=== PATIENT | female | born 1980 | race Asian ===

== ENCOUNTER 2021-09-27 15:18 | Inpatient (IN) | payer MEDICARE, SELFPAY ==
[2021-09-27] VITALS (7 sets, daily range): BP systolic 78–108; BP diastolic 40–77; PULSE 94–120; RESP 14–19; TEMP 36.6; O2SAT 98–100; BMI 21.5
--- NOTE | ~2021-09-27 | CT_ITS ---
EXAMINATION: CT CHEST WITHOUT CONTRAST CLINICAL INFORMATION: Pneumomediastinum. Evaluate for esophageal rupture or tear. COMPARISON: CT chest without contrast 09/27/2021 TECHNIQUE: Multidetector volumetric CT imaging of the chest was done. Axial MIP volume rendering provided. Sagittal and coronal reformatted images were obtained. This CT examination was performed using dose optimization techniques as appropriate, variously including the following: *Automated exposure control *Adjustment of mA and/or kV according to patient size (this includes techniques or standardized protocols for targeted exams where dose is matched to indication/reason for exam; i.e. extremities or head) *Use of iterative reconstruction technique DLP: 215 mGy-cm FINDINGS: LAB ANIMAL TECHNOLOGIST: Well-inflated lungs. LUNGS: The lungs are well-expanded without any acute pneumonic process. No consolidation, mass or nodule visualized. MEDIASTINUM: Again visualized is moderate extensive pneumomediastinum similar to earlier exam 09/27/2021. There is a speckle of gas and oral contrast seen extraluminal to the midesophagus on axial image 26/2 and 27/2. There is linear gas at the same area on the previous CT from 09/27/2021. An esophageal tear at this site is highly suspected. Heart size and the great vessels are normal caliber. The thyroid lobes are symmetric and normal. No abnormal size mediastinal lymphadenopathy. No pericardial effusion. However there is focal air collection seen along the right and left anterior pericardial sac part of pneumomediastinum. PLEURA: There is no pleural effusion. No pleural mass or thickening. There is no evidence of pneumothorax. AXILLA: There is moderate gas seen within the right axilla, bottom of the neck, superior mediastinum and the left midneck region similar to previous study. UPPER ABDOMEN: Visualized liver and spleen is unremarkable. There is diluted Gastrografin in the stomach and distal esophagus OSSEOUS STRUCTURES: There is no lytic or sclerotic process seen CT/CT chest wo con IMPRESSION: Extensive pneumomediastinum and subcutaneous emphysema in the anterior neck and the right axilla. There is a trickle of gas and oral contrast to the midesophagus just below the delfino suspicious for likely site for esophageal tear or rupture. Results were conveyed by phone to Dr. Arreaga at 5:02 PM
--- NOTE | ~2021-09-27 | CT_ITS ---
EXAMINATION: CT HEAD WITHOUT CONTRAST CLINICAL INFORMATION: New onset seizures. COMPARISON: None TECHNIQUE: Contiguous axial imaging was performed from the skull base to vertex without intravenous administration of contrast. This CT examination was performed using dose optimization techniques as appropriate, variously including the following: *Automated exposure control *Adjustment of mA and/or kV according to patient size (this includes techniques or standardized protocols for targeted exams where dose is matched to indication/reason for exam; i.e. extremities or head) *Use of iterative reconstruction technique DLP: 586 mGy-cm FINDINGS: There is no evidence of acute intracranial hemorrhage or territorial infarction. No abnormal mass effect or midline shift is seen. Wells to white matter differentiation is well preserved. No extra-axial fluid collections are identified. The ventricles are normal in size. Cavum septum pellucidum at vergae. There is mild chronic microangiopathy. No acute osseous or soft tissue abnormalities. Bilateral degenerative changes in both temporomandibular joints. The mastoid air cells and visualized portions of the paranasal sinuses are well aerated. CT/CT head/brain wo con IMPRESSION: No acute intracranial abnormalities.
--- NOTE | ~2021-09-27 | XR_ITS ---
EXAMINATION: XR CHEST CLINICAL INFORMATION: Follow-up pneumomediastinum. Esophageal perforation. COMPARISON: Previous chest CT scan from earlier this month TECHNIQUE: Frontal view of the chest was obtained. FINDINGS: The cardiac gland does not appear enlarged. There is pneumomediastinum. From previous CT scan. The lungs are clear. There is right apical pleural thickening. There is no pleural effusion or pneumothorax. There is a small amount of right chest wall emphysema right shoulder. Bony structures are unremarkable. XR/XR chest 1V IMPRESSION: Pneumomediastinum and right chest wall subcutaneous emphysema decreased from previous CT scans.
--- NOTE | ~2021-09-27 | CT_ITS ---
EXAMINATION: CT CHEST WITHOUT CONTRAST CLINICAL INFORMATION: Pneumomediastinum COMPARISON: CT abdomen pelvis earlier the same day TECHNIQUE: Multidetector volumetric CT imaging of the chest was done. Axial MIP volume rendering provided. Sagittal and coronal reformatted images were obtained. This CT examination was performed using dose optimization techniques as appropriate, variously including the following: *Automated exposure control *Adjustment of mA and/or kV according to patient size (this includes techniques or standardized protocols for targeted exams where dose is matched to indication/reason for exam; i.e. extremities or head) *Use of iterative reconstruction technique DLP: 251 mGy-cm FINDINGS: DIRECTOR HEMATOLOGY: Symmetrically expanded lungs. Subcutaneous emphysema in the right shoulder is readily evident. LUNGS: The lungs are clear with no evidence of inflammation or nodules. MEDIASTINUM: There is extensive pneumomediastinum. There are foci of gas in the anterior as well as posterior mediastinum, as well as adjacent the cardiac apex. Numerous foci of gas are seen extending from the superior mediastinum into the soft tissues of the neck and axilla, right greater than left. All PLEURA: No pleural effusion or pneumothorax. AXILLA: Subcutaneous emphysema is seen in the axilla bilaterally. UPPER ABDOMEN: Right-sided hydronephrosis again seen. OSSEOUS STRUCTURES: Unremarkable. CT/CT chest wo con IMPRESSION: Extensive pneumomediastinum extending into the neck and right greater than left axilla as subcutaneous emphysema. The etiology is uncertain. The prior study had a history of decreased appetite. Was the patient retching to suggest Boerhaave's syndrome? Fleischner guidelines were followed.
--- NOTE | ~2021-09-27 | IR_ITS ---
PROCEDURE: IR INSERTION OF PICC IR ULTRASOUND-GUIDED VENOUS ACCESS CLINICAL INFORMATION: Esophageal perforation. TPN requirement. COMPARISON: None TECHNIQUE: Informed consent including procedure, risks and benefits were obtained by the interventional radiology nurses prior to the procedure. All elements of maximal sterile barrier technique followed including use of cap, mask, sterile gown, sterile gloves, a sterile full body drape and hand hygiene. Also followed skin preparation with 2% chlorhexidine for cutaneous antisepsis, and sterile ultrasound preparation with sterile gel and probe cover when applicable. The right arm was prepped and draped in the usual sterile fashion. The skin and soft tissues were anesthetized with 1% lidocaine plain. Using ultrasound guidance, right brachial vein access was obtained. Over an .018 wire and through a peel-away sheath, a 5-Russian double-lumen PICC line was positioned. Catheter length is 21 cm. Catheter tip projects over the distal right subclavian vein/proximal SVC. Real-time ultrasound guidance was used to document vein patency and for needle entry. A formal ultrasound picture was recorded. Fluoroscopy time 0.1 minutes. DAP 8 cGy-cm2. One saved fluoroscopic image and one saved ultrasound image. FINDINGS: There is a right upper extremity PICC line with catheter tip projecting over the distal right subclavian vein/proximal SVC. IR/IR us guide venous access IMPRESSION: Right upper extremity PICC line placement.
--- NOTE | ~2021-09-27 | FL_ITS ---
EXAMINATION: FL BARIUM SWALLOW CLINICAL INFORMATION: Followup for esophageal tear. COMPARISON: None TECHNIQUE: Barium swallow examination is performed using fluoroscopic evaluation in addition to multiple fluoroscopic spot views. The patient is imaged both upright and prone and using both thick and thin sulfate along with effervescent granules. Fluoroscopy time: 0.5 minutes DAP: 0.402 Gycm2 Images: 2 FINDINGS: After coaxing patient for swallowing of 50/50 Gastrografin for almost 20 minutes, the patient refused to drink in spite of the electronic train control technician and patient's sister trying for several minutes. The exam was terminated. FL/FL barium swallow IMPRESSION: Unsuccessful barium swallow exam. Patient refused to drink. Post Gastrografin swallow CT imaging was not performed. Results were conveyed to Dr. Pathak after the exam.
--- NOTE | ~2021-09-27 | IR_ITS ---
PROCEDURE: IR INSERTION OF PICC IR ULTRASOUND-GUIDED VENOUS ACCESS CLINICAL INFORMATION: Esophageal perforation. TPN requirement. COMPARISON: None TECHNIQUE: Informed consent including procedure, risks and benefits were obtained by the interventional radiology nurses prior to the procedure. All elements of maximal sterile barrier technique followed including use of cap, mask, sterile gown, sterile gloves, a sterile full body drape and hand hygiene. Also followed skin preparation with 2% chlorhexidine for cutaneous antisepsis, and sterile ultrasound preparation with sterile gel and probe cover when applicable. The right arm was prepped and draped in the usual sterile fashion. The skin and soft tissues were anesthetized with 1% lidocaine plain. Using ultrasound guidance, right brachial vein access was obtained. Over an .018 wire and through a peel-away sheath, a 5-[place] double-lumen PICC line was positioned. Catheter length is 21 cm. Catheter tip projects over the distal right subclavian vein/proximal SVC. Real-time ultrasound guidance was used to document vein patency and for needle entry. A formal ultrasound picture was recorded. Fluoroscopy time 0.1 minutes. DAP 8 cGy-cm2. One saved fluoroscopic image and one saved ultrasound image. FINDINGS: There is a right upper extremity PICC line with catheter tip projecting over the distal right subclavian vein/proximal SVC. IR/IR cvc insert peripheral IMPRESSION: Right upper extremity PICC line placement.
--- NOTE | ~2021-09-27 | XR_ITS ---
EXAMINATION: XR CHEST CLINICAL INFORMATION: Esophageal perforation COMPARISON: 09/29/2021 TECHNIQUE: Frontal view of the chest was obtained. XR/XR chest 1V FINDINGS/IMPRESSION: No appreciable pneumomediastinum remains. No pneumothorax. Normal heart size and pulmonary vascularity. Lungs are clear. Right upper extremity PICC terminates in the expected location of the proximal right subclavian vein/distal axillary vein.
--- NOTE | ~2021-09-27 | CT_ITS ---
EXAMINATION: CT ABDOMEN AND PELVIS WITHOUT CONTRAST CLINICAL INFORMATION: Decreased appetite. COMPARISON: None TECHNIQUE: Multidetector volumetric imaging was performed from the superior aspect of the liver through the pubic symphysis. Sagittal and coronal reformatted images were obtained on the technologist's workstation. This CT examination was performed using dose optimization techniques as appropriate, variously including the following: *Automated exposure control. *Adjustment of mA and/or kV according to patient size (this includes techniques or standardized protocols for targeted exams where dose is matched to indication/reason for exam; i.e. extremities or head). *Use of iterative reconstruction technique. DLP: 502 mGy-cm FINDINGS: LUNG BASES: Focal ground-glass opacities at the dependent portion of the left lower lobe likely correspond to atelectasis. There is pneumomediastinum at the diaphragmatic hiatus and anteriorly in the pericardial region. A few foci of gas are also present within the right breast tissue, possibly due to the same mechanism which produced the pneumomediastinum. LIVER, GALLBLADDER, AND BILIARY TREE: There is focal fatty infiltration along the falciform ligament. Liver appears normal in size, contour, and attenuation without focal lesions or ductal dilatation, the sensitivity and specificity is somewhat limited by the absence of intravenous contrast material. The gallbladder is unremarkable with no evidence of radiopaque gallstones, gallbladder wall thickening, or obvious pericholecystic inflammatory changes. PANCREAS: Unremarkable. SPLEEN: Unremarkable. ADRENAL GLANDS: Unremarkable. KIDNEYS AND URETERS: The kidneys are normal in size, shape, and attenuation. No nephrolithiasis or ureterolithiasis. There is mild hydroureteronephrosis, right side greater than left, likely due to back pressure from the markedly distended bladder. BLADDER: Markedly distended. No appreciable wall thickening. GASTROINTESTINAL TRACT: Stomach, small bowel, and colon are normal in caliber. No appreciable bowel wall thickening. No intraperitoneal free fluid or free air. Appendix is not well seen, although there are no findings of acute appendicitis are identified in the right lower quadrant. ABDOMINAL WALL: No significant hernia is appreciated. LYMPH NODES: Normal. VASCULAR: Unremarkable. PELVIC VISCERA: The uterus is unremarkable. There is a simple-appearing 2.8 cm right ovarian cyst which is almost certainly benign. A smaller 2.5 cm follicular cyst is present at the left ovary. No follow up imaging recommended. OSSEOUS STRUCTURES: Left convex lumbar scoliosis. No fracture or malalignment. Mild osteoarthritis in the hips and SI joints. CT/CT abdomen pelvis wo con IMPRESSION: 1. Pneumomediastinum, partially seen at the superior margin of the study. No intraperitoneal source identified. 2. Markedly distended bladder with mild associated bilateral hydroureteronephrosis. This critical result was discussed by telephone with Dr. Reno on 09/27/2021 at 10:27 PM.
--- NOTE | 2021-09-27 15:26 | ECG_ITS ---
Test Reason : SEIZURE Blood Pressure : / mmHG Vent. Rate : 112 BPM Atrial Rate : 112 BPM P-R Int : 154 ms QRS Dur : 076 ms QT Int : 358 ms P-R-T Axes : 048 050 -04 degrees QTc Int : 488 ms Sinus tachycardia Cannot rule out Inferior infarct , age undetermined Abnormal ECG No previous ECGs available Referred By: Rambo Rios Electronically Signed By:JUAN BLAKE MD
--- NOTE | 2021-09-27 15:32 | ED_ITS ---
HPI - Seizure General Chief Complaint: Seizure Stated Complaint: seizure (?) Time Seen by Provider: 09/27/21 15:26 Source: patient and EMS Mode of arrival: ambulatory Limitations: no limitations History of Present Illness HPI Narrative: This is a 41-year-old female past medical history significant for mild intellectual disability, Down syndrome, mood disorder, depressive disorder, psychotic disorder not otherwise specified presenting to the emergency department via ambulance from a senior care where patient had a 5-7 second long tonic clonic seizure just prior to her arrival. According to EMS patient does not have history of seizures. Patient tells me that she feels fine, she has no complaints at this time. She tells me about a week ago she was experiencing an upset stomach, sore throat. Patient is not a great historian. Patient did not fall, did not hit her head. Has no complaints MD complaint: seizure Onset (ago): minute(s) (30) Description of Episode: tonic-clonic movement Duration of episode: 5 -: second(s) Witnessed: Yes - by Bystander Trauma: No Seizure History: No Place: Home ([facility] ) Possible Precipitating Event: none Associated symptoms: denies other symptoms Treatments prior to arrival: none Related Data Allergies Allergy/AdvReac Type Severity Reaction Status Date / Time Unable to Assess Allergy Unverified 09/27/21 15:26 Review of Systems Review of Systems: Constitutional : No Weight loss, No Fever, No Chills, No Fatigue, No Malaise ENT/Mouth : No sore throat, No Rhinorrhea Eyes: No Eye Pain, No Swelling, No Redness Cardiovascular : No Chest Pain, No SOB, No Dyspnea on Exertion, No Orthopnea, No Edema, No Palpitations Respiratory : No Cough, No Sputum, No Wheezing Gastrointestinal : No Nausea, No Vomiting, No Diarrhea, No Constipation, No abdominal Pain, No Hematochezia, No Melena Genitourinary : No Dysuria, No Urinary Frequency, No Hematuria, Musculoskeletal : No joint pain, No Myalgias, No Joint Swelling Skin : No Skin Lesions, No rash Neuro : No Weakness, No Numbness, No Dizziness, No Headache Psych : No Anxiety/Panic, No Depression All other systems reviewed and are negative Yes all other systems are reviewed and are negative PMFSH Past Medical History Attestation statement: The following information was validated with the patient. Source: old records reviewed and nursing notes reviewed Medical History (Updated 09/27/21 @ 19:32 by BAUDILIO Payne) Down's syndrome Mood disorder Psychotic disorder Social History Social History Advance Directives: No Advance Directives Information Provided: No Patient : No Physical Exam Vital Signs: Vital Signs: Last Vital Signs Temp 98 F 09/27/21 15:25 Pulse 94 09/27/21 19:39 Resp 14 09/27/21 19:39 BP 97/77 09/27/21 19:39 Pulse Ox 98 09/27/21 19:39 BMI result Body Mass Index 21.5 VSS Appearance: Alert.? Oriented X3.? No acute distress.? Head: Normocephalic, atraumatic, no step-offs or deformities Eyes: Pupils equal, round and reactive to light.? ENT: Pharynx normal.?+ dry mucus membranes. No lacerations within mouth Neck: Normal inspection.? Neck supple.? CVS: Normal heart rate and rhythm.? Pulses normal.? Respiratory: No respiratory distress.? Breath sounds normal.? Abdomen: Soft and nontender.? Skin: Skin warm and dry.? Normal skin color.? Normal skin turgor.? Extremities: No lower extremity edema.? No calf ttp. 5/5 strength to bilateral upper and lower extremities Back: No midline tenderness, no C-spine tenderness, full range of motion, no CVA tenderness bilaterally Neuro: Oriented X 3.? No motor deficit.? No sensory deficit. Course Reevaluation(s) Reevaluation #1: Patient's potassium is noted to be low. She will be given 60 meq of potassium by mouth. CBC within normal limits. Patient is COVID negative. CT of the head with no abnormalities. Will continue to monitor. Patient has not had a seizure while here in the emergency department. Time: 17:26 Reevaluation #2: Patient very drowsy/lethargic. I will change potassium to IV you rather than p.o.. Patient noted to be hypotensive, she is on liter 2, this liter on a pressure bag. Time: 17:58 Reevaluation #3: On 3 L pressure slowly going up. Will admit to the hospitalist team. Time: 19:33 Additional Reevaluation(s): 2012 Pressure in the low 100s systolic now,while patient is supine. MDM - Seizure MDM Narrative Medical decision making narrative: 1535 41 yo F pmhx intellectual disability, Down syndrome, mood disorder, MDD, psychotic disorder presents from a senior care where patient had a 5-7 second long whitnessed tonic clonic seizure just prior to her arrival. No trauma. No lOC no fall. No hx of seziures, unsure what precipitated this event. Upon physical examination patient is in good spirits, has no complaints. Vital signs are stable. Lungs clear. Regular rate and rhythm. Abdomen soft nontender nondistended. Neurological examination is nonfocal. Head is normocephalic, atraumatic no step-offs or deformities. No C-spine tenderness no midline tenderness. No evidence signs of trauma. Patient's mucous membranes are noted to be dry, lips are cracked. No abrasions within the mouth. At this time is to obtain basic labs, cardiac monitoring, seizure precautions, EKG, fluids, Ativan. Medical Records Attestation: I reviewed the patient's medical records. Lab Data Attestation: I reviewed the patient's lab results. Result diagrams: 09/27/21 16:37 09/27/21 16:16 Labs: Lab Results 09/27/21 09/27/21 09/27/21 Range/Units 16:16 16:16 16:37 WBC 5.2 (4.8-10.8) X10*3/uL RBC 4.59 (4.20-5.50) X10*6/uL Hgb 15.2 (12.0-16.0) g/dl Hct 43.1 (37.0-47.0) % MCV 93.9 (80.0-98.0) fL MCH 33.1 H (27.0-33.0) pg MCHC 35.3 H (31.0-35.0) g/dl RDW 13.9 (11.0-16.0) % Plt Count 288 (160-400) X10*3/uL MPV 9.5 (9.4-12.3) fL Immature Gran % (Auto) 0.6 H (0.0-0.4) % Neut % (Auto) 76.8 H (45-73) % Lymph % (Auto) 12.3 L (20-40) % [place] % (Auto) 7.3 (2-11) % Eos % (Auto) 1.5 (0-4) % Baso % (Auto) 1.5 (0-2) % Lymph # (Auto) 0.6 L (1.2-4.9) X10*3/uL [place] # (Auto) 0.4 (0.1-1.2) X10*3/uL Eos # (Auto) 0.1 (0.0-0.4) X10*3/uL Baso # (Auto) 0.1 (0.0-0.2) X10*3/uL Abs Immat Gran (auto) 0.03 (0.00-0.03) X10*3/uL Absolute Neuts (auto) 4.0 (2.0-8.3) x10*3/uL Absolute Nucleated RBC 0.000 (0.0-0.012) X10*3/uL Nucleated RBC % (auto) 0.0 (0.0-0.2) /100WBC Sodium 141 (135-145) mmol/L Potassium 2.9 L (3.3-5.1) mmol/L Chloride 102 (96-108) mmol/L Carbon Dioxide 26 (22-29) mmol/L Anion Gap 16 (12-20) BUN 13 (9-16) mg/dL Creatinine 1.01 (0.5-1.4) mg/dL Estim Creat Clear Calc 51.5 Estimated GFR 60 Random Glucose 156 H (60-115) mg/dL Calcium 9.1 (8.4-10.2) mg/dL Magnesium 2.1 (1.6-2.6) mg/dL Total Bilirubin 0.7 (0.0-1.0) mg/dL AST 17 (5-31) U/L ALT 9 (0-31) U/L Alkaline Phosphatase 72 (39-117) U/L Total Protein 7.4 (6.5-8.0) g/dL Albumin 3.8 (3.5-5.0) g/dL COVID-19 (PRIYA) Negative (Negative) COVID-19 Clin Com See Note Imaging Data CT scan - head: Attestation: I personally reviewed and interpreted this imaging study as follows: Radiologist's impression: FINDINGS: There is no evidence of acute intracranial hemorrhage or territorial infarction. No abnormal mass effect or midline shift is seen. Wells to white matter differentiation is well preserved. No extra-axial fluid collections are identified. The ventricles are normal in size. Cavum septum pellucidum at vergae. There is mild chronic microangiopathy. No acute osseous or soft tissue abnormalities. Bilateral degenerative changes in both temporomandibular joints. The mastoid air cells and visualized portions of the paranasal sinuses are well aerated. ? CT/CT head/brain wo con IMPRESSION: No acute intracranial abnormalities. ECG Data Attestation: I personally reviewed and interpreted this ECG as follows: ECG interpretation date: 09/27/21 ECG interpretation time: 16:06 Prior ECG tracings: available for review Interpretation: Ventricular rate of 112, ME normal, QRS normal, QT/QTC normal. EKG shows normal sinus tachycardia. No ST elevations or inversions, no acute ischemia. No previous EKGs to compare with. Critical Care Time Critical Care Time Critical Care Time: Yes Total Critical Care Time: 35 Attestation: I attest to this time spent taking care of the patient doing a history and physical exam, reviewing labs, imaging, starting K, and 3L of fluids. Discharge Plan Discharge Clinical Impression: Seizure, Hypokalemia, Hypotension Patient Disposition: Admitted As Inpatient
[2021-09-27] MEDS: LORazepam 2 MG/ML VIAL 1 MG IVPUSH (15:38)
--- NOTE | 2021-09-27 15:52 | PC.NURSE ---
jose from [facility]
[2021-09-27 16:41] LABS: Alanine Aminotransferase 9 U/L (0-31); Albumin Level 3.8 g/dL (3.5-5.0); Alkaline Phosphatase 72 U/L (39-117); Anion Gap 16 (12-20); Aspartate Amino Transferase 17 U/L (5-31); Bilirubin Total 0.7 mg/dL (0.0-1.0); Blood Urea Nitrogen 13 mg/dL (9-16); COVID-19 Test Negative (Negative); Calcium 9.1 mg/dL (8.4-10.2); Carbon Dioxide 26 mmol/L (22-29); Chloride 102 mmol/L (96-108); Creatinine Clr Calc Pharmacy 51.5; Estimated Glomerular Filt Rate 60; Glucose Random 156 mg/dL (60-115); IDNOW Serial# 9DD0AD1C; Magnesium 2.1 mg/dL (1.6-2.6); Sodium 141 mmol/L (135-145); Total Protein 7.4 g/dL (6.5-8.0)
[2021-09-27 16:41] LABS: Basophils Absolute Auto 0.1 X10*3/uL (0.0-0.2); Basophils Percent Auto 1.5 % (0-2); Eosinophils Absolute Auto 0.1 X10*3/uL (0.0-0.4); Eosinophils Percent Auto 1.5 % (0-4); Hematocrit 43.1 % (37.0-47.0); Hemoglobin 15.2 g/dl (12.0-16.0); Imm Gran Abs Auto 0.03 X10*3/uL (0.00-0.03); Imm Gran Pct Auto 0.6 % (0.0-0.4); Lymphocytes Absolute Auto 0.6 X10*3/uL (1.2-4.9); Lymphocytes Percent Auto 12.3 % (20-40); Mean Corpuscular HGB Conc 35.3 g/dl (31.0-35.0); Mean Corpuscular Hemoglobin 33.1 pg (27.0-33.0); Mean Corpuscular Volume 93.9 fL (80.0-98.0); Mean Platelet Volume 9.5 fL (9.4-12.3); Monocytes Absolute Auto 0.4 X10*3/uL (0.1-1.2); Monocytes Percent Auto 7.3 % (2-11); Neutrophils Percent Auto 76.8 % (45-73); Platelet Count 288 X10*3/uL (160-400); Red Blood Count 4.59 X10*6/uL (4.20-5.50); Red Cell Distribution Width 13.9 % (11.0-16.0); White Blood Count 5.2 X10*3/uL (4.8-10.8)
[2021-09-27] MEDS: 0.9 % Sodium Chloride 1,000 ML 999 ML IV ×3 (16:41→19:35)
[2021-09-27 16:48] LABS: Potassium 2.9 mmol/L (3.3-5.1)
[2021-09-27 17:08] LABS: MANUAL DIFF FLAG NO
[2021-09-27] MEDS: Potassium Chloride/H20 10 MEQ/100 ML PIGGYBACK 100 MEQ IV ×4 (18:25→21:58)
--- NOTE | 2021-09-27 21:14 | P.HPHOSP_ITS ---
History of Present Illness Date of Service: 09/27/21 Chief Complaint: tonic clonic movements history obtained from ED and workgroup leader, patient poor historian, unable to contact family. 41F with pmh of mild intellectual disability, lives at a snf. presented with tonic clonic movements for several seconds per EMS report. they reported no history of seizures, and patient is not on medications at the snf. she had 2 ED visits to [facility] [place] in june 2021 and august 2021 for syncopal episodes. no tonic clonic movements were noted at that time. workgroup leader was unable to provide history of postictal phase or incontinence. he did note that staff had reported decreased po intake over past week. this has also been noted on the [facility] [place] ED notes. patient herself reports being thirsty and is requesting coca cola . in ED noted to be hypokalemic to 2.9, and transiently hypotensive that responded to IV fluids. Review of Systems Review of Systems: Constitutional: Denies fever, denies Chills Eyes: denies blurry vision ENT: denies sore throat CVS: denies chest pain Respiratory: Denies dyspnea GI: no abdominal pain : denies dysuria MSK: denies neck pain Skin: denies rash Neuro: denies specific motor weakness Psych: denies suicidal ideation Endocrine: denies heat/cold intolerance Hematologic: denies easy bleeding Allergy: denies hives PMFSH Medical History Down's syndrome Mood disorder Psychotic disorder Pertinent family history: patient unaware Social History Advance Directives: No Advance Directives Information Provided: No Patient : No Meds Allergies Allergy/AdvReac Type Severity Reaction Status Date / Time Unable to Assess Allergy Unverified 09/27/21 15:26 Active Medications: Current Medications Enoxaparin Sodium (Enoxaparin Sodium 40 Mg/0.4 Ml Syringe) 40 mg SUBCUT Q24H SC H Potassium Chloride () 10 meq in 100 mls @ 100 mls/hr IV Q1H DAVID Stop: 09/27/21 21:59 Last Admin: 09/27/21 20:44 Dose: 100 mls/hr Documented by: Lactated Ringer's (Lr) 1,000 mls @ 80 mls/hr IVCONT .[id number] DAVID Physical Exam Vital Signs and Narrative: Vital Signs: Last Vital Signs Temp 98 F 09/27/21 15:25 Pulse 94 09/27/21 19:39 Resp 14 09/27/21 19:39 BP 97/77 09/27/21 19:39 Pulse Ox 98 09/27/21 19:39 BMI result Body Mass Index 21.5 General: no acute distress, features of trisomy 21, dry appearing HEENT: poor dentition Neck: normal to visual inspection CVS: S1, S2, RRR Resp: CTA bilateral Chest: non tender GI: soft, non tender, non distended : no CVA tenderness Skin: no rashes Extremities: no edema Neuro: Oriented X3, grossly intact Psych: cooperative Results Labs CBC and Chem 7: 09/27/21 16:37 09/27/21 16:16 Labs: Laboratory Results - last 24 hr 09/27/21 09/27/21 09/27/21 16:16 16:16 16:37 MCV 93.9 MCH 33.1 H MCHC 35.3 H RDW 13.9 Plt Count 288 MPV 9.5 Immature Gran % (Auto) 0.6 H Neut % (Auto) 76.8 H Lymph % (Auto) 12.3 L [place] % (Auto) 7.3 Eos % (Auto) 1.5 Baso % (Auto) 1.5 Lymph # (Auto) 0.6 L [place] # (Auto) 0.4 Eos # (Auto) 0.1 Baso # (Auto) 0.1 Abs Immat Gran (auto) 0.03 Absolute Neuts (auto) 4.0 Absolute Nucleated RBC 0.000 Nucleated RBC % (auto) 0.0 Anion Gap 16 Estim Creat Clear Calc 51.5 Estimated GFR 60 Random Glucose 156 H Calcium 9.1 Magnesium 2.1 Total Bilirubin 0.7 AST 17 ALT 9 Alkaline Phosphatase 72 Total Protein 7.4 Albumin 3.8 COVID-19 (PRIYA) Negative COVID-19 Clin Com See Note Imaging Radiologist's Impressions: Impressions Head CT 09/27/21 16:52 IMPRESSION: No acute intracranial abnormalities. Assessment and Plan (1) Hypokalemia: Status: Acute (2) Hypotension: Status: Acute 41F presented with LOC and tonic clonic movements, found to be hypotensive and hypokalemic LOC with tonic clonic movements differential includes seizure vs syncope from hypotension from hypovolemia will hold off on AED for now, neuro eval arrythmia less likely, but will monitor on tele IVF, orthostatics history of poor intake concerning, will check CT abdomen, abdominal exam is benign no evidence of sepsis hypokalemia replace and monitor dvt prophylaxis - lovenox full code - from snf chart Quality Stroke Does the patient have a stroke diagnosis?: No VTE Prior VTE?: No VTE Risk Level:: Medical - moderate - high VTE Device Contraindication: Treatment Not Indicated VTE Drug Contraindication: N/A - Med Ordered
[2021-09-27] MEDS: Enoxaparin Sodium 40 MG/0.4 ML SYRINGE SUBCUT (21:58)
--- NOTE | 2021-09-27 22:19 | PC.NURSE ---
patients sister Ruth can be reached at [phone]
[2021-09-27] MEDS: Lactated Ringers 1,000 ML 80 ML IVCONT (23:42)
[2021-09-28] VITALS (16 sets, daily range): BP systolic 84–106; BP diastolic 37–63; PULSE 69–96; RESP 9–16; TEMP 36.4–36.8; O2SAT 98–100
--- NOTE | 2021-09-28 01:30 | PC.NURSE ---
Hospitalist Dr. Han aware of PT refusal to castellano.
[2021-09-28] MEDS: Ampicillin Sodium/Sulbactam Na 1.5 GM in 0.9 % Sodium Chloride 100 ML IV ×3 (01:55→15:19)
--- NOTE | 2021-09-28 05:22 | PC.NURSE ---
patient getting up and using the bathroom, denies difficulty, pain, or other urinary symptoms. patient is alert and able to answer questions. skin is p,d,w. denies pain at this time.
[2021-09-28] MEDS: 0.9 % Sodium Chloride 1,500 ML 1500 ML IV (09:05)
--- NOTE | 2021-09-28 09:08 | PHA.MEDREC ---
Pharmacy Consult ? Medication Reconciliation Pharmacy has completed the medication reconciliation. Patient came with a binder from [facility] which had a list of current medications. Marleny Chavez, SalomónD
--- NOTE | 2021-09-28 09:38 | P.CONGS_ITS ---
History of Present Illness Consult details Consult date: 09/28/21 Reason for consult: other (Pneumomediastinum) Requesting physician: Jean Reno Narrative: History obtained from hospitalist admission note is patient is a poor historian. Patient is a 41-year-old female with a past medical history of mild intellectual disability/ down's syndrome, lives at a care home. Presented to the emergency department with tonic clonic movements for several seconds per EMS report. According to note today reported no history of seizures, and patient is not on any medications at the care home. Reportedly the staff at the care home had reported decreased p.o. intake over past week. Upon arrival to ED she was noted to be hypokalemic to 2.9 and hypotensive but responded to IV fluids. There is no leukocytosis with WBC 5.9. A CT scan of the chest and abdomen were performed which showed no pneumothorax however extensive pneumomediastinum extending into the neck and right greater than left axilla and subcutaneous emphysema for which thoracic surgery was consulted for. a GI consult was also placed which is pending. Patient was made NPO last night and started on empiric Unasyn. During my interview with patient she stated that she is not sure what brought her to the emergency department. She denies any recent vomiting or retching and cannot recall what foods she has had in the past recent days. She also denies any difficulty or painful swallowing, neck pain, abdominal pain, chest pain or shortness of breath. He is currently receiving IV fluids for BP of 80/35 and does not appear to be in any respiratory distress or any discomfort. Review of Systems Review of Systems: Yes all other systems are reviewed and are negative PMFSH Past Medical History Medical History Down's syndrome Mood disorder Psychotic disorder Family History Pertinent family history: unable to obtain Social History Social History Advance Directives: No Advance Directives Information Provided: No Patient : No Meds Allergies Allergy/AdvReac Type Severity Reaction Status Date / Time Seasonal Allergies Allergy Unknown Verified 09/28/21 08:45 Active Medications: Current Medications Enoxaparin Sodium (Enoxaparin Sodium 40 Mg/0.4 Ml Syringe) 40 mg SUBCUT Q24H DAVID Last Admin: 09/27/21 21:58 Dose: 40 mg Documented by: Lactated Ringer's (Lr) 1,000 mls @ 80 mls/hr IVCONT .[id number] [facility] Last Infusion: 09/28/21 02:21 Dose: 80 mls/hr Documented by: Ampicillin Sodium/Sulbactam (Sodium 1.5 gm/ Sodium Chloride) 100 mls @ 200 mls/hr IV Q8H [facility] Last Infusion: 09/28/21 02:21 Dose: Infused Documented by: Home Medications Medication Instructions Recorded Confirmed Last Taken Type acetaminophen 325 mg tablet 650 mg PO Q4H PRN 09/28/21 09/28/21 Unknown History chlorhexidine gluconate 0.12 % 15 ml BUCCAL BID 09/28/21 09/28/21 Unknown History mouthwash (Peridex) Physical Exam Vital Signs: Vital Signs: Last Vital Signs Temp 98 F 09/27/21 15:25 Pulse 69 09/28/21 08:47 Resp 16 09/28/21 08:47 BP 88/37 L 09/28/21 08:47 Pulse Ox 100 09/28/21 05:55 BMI result Body Mass Index 21.5 Const: General: comfortable, no acute distress and lethargic Orientation/consciousness: lethargic HENMT: Head: Yes atraumatic Eyes: Conjunctivae: conjunctivae normal Sclerae: sclerae normal Neck: Neck: Yes trachea midline, Yes supple and Yes other ( No subcutaneous emphysema noted on physical exam.) Chest: Other: Unable to appreciate any subcutaneous emphysema or crepitus along anterior, left, right or posterior chest wall Resp: Other: breath sounds are clear to auscultation bilaterally throughout all lung goodrich with no adventitious sounds such as wheezes or rhonchi. Effort & Inspection: normal respiratory effort Cardio: Jugular venous distension: no JVD Rate: regular rate GI: Inspection: Yes normal to inspection Palpation (GI): Soft to palpation and nontender Auscultation: normal bowel sounds Extrem: General: Yes normal to inspection and Yes no clubbing, cyanosis or edema Results Labs Result diagrams: 09/27/21 16:37 09/27/21 16:16 Labs: Abnormal lab results 09/27/21 09/27/21 Range/Units 16:16 16:37 MCH 33.1 H (27.0-33.0) pg MCHC 35.3 H (31.0-35.0) g/dl Immature Gran % (Auto) 0.6 H (0.0-0.4) % Neut % (Auto) 76.8 H (45-73) % Lymph % (Auto) 12.3 L (20-40) % Lymph # (Auto) 0.6 L (1.2-4.9) X10*3/uL Potassium 2.9 L (3.3-5.1) mmol/L Random Glucose 156 H (60-115) mg/dL Short CBC 09/27/21 Range/Units 16:37 WBC 5.2 (4.8-10.8) X10*3/uL Hgb 15.2 (12.0-16.0) g/dl Hct 43.1 (37.0-47.0) % Plt Count 288 (160-400) X10*3/uL BMP 09/27/21 16:16 Sodium 141 Potassium 2.9 L Chloride 102 Carbon Dioxide 26 BUN 13 Creatinine 1.01 Calcium 9.1 Liver Function 09/27/21 Range/Units 16:16 Total Bilirubin 0.7 (0.0-1.0) mg/dL AST 17 (5-31) U/L ALT 9 (0-31) U/L Alkaline Phosphatase 72 (39-117) U/L Albumin 3.8 (3.5-5.0) g/dL All other labs normal. Imaging Abdomen CT scan report/results: report reviewed CT scan - chest: report reviewed and image reviewed Assessment and Plan (1) Pneumomediastinum: Status: Acute patient is a 41-year-old female with a past medical history of Down syndrome and is a poor historian who lives in a care home. Arrived to ED for reported episode of tonic clonic found to be hypokalemic with low BP and receiving replacement. A chest and abdominal CT shows extensive pneumomediastinum extending bilaterally into neck with unknown ideology. Patie nt was started on Unasyn, initial CBC shows no leukocytosis. Pneumomediastinum of unclear ideology. Esophageal rupture must be ruled out although unlikely. A barium swallow study with Gastrografin to be used 1st to rule out esophageal perforation has been ordered. A CT scan without contrast should be performed within a timely fashion after barium swallow is performed. I spoke with Radiology who confirmed order and is awaiting for patient BP did become stable while she receives IV fluids. Continue NPO status until esophageal perforation can not be ruled out. If there is in fact a esophageal perforation patient should be started on Zosyn, vancomycin, and fluconazole for empiric antimicrobial treatment. If barium swallow reveals no stoppage of perforation pneumomediastinum would not require any thoracic surgical intervention and are usually self-resolving. This case was discussed with Dr.Laki Jackson. thank you for this consult if you have any further questions please contact the thoracic Surgical Department. Procedures Date of Service Date of Service: 09/28/21
[2021-09-28] MEDS: LORazepam 2 MG/ML VIAL 1 MG IVPUSH (10:29)
[2021-09-28 11:32] LABS: Hematocrit 39.3 % (37.0-47.0); Hemoglobin 13.2 g/dl (12.0-16.0); Mean Corpuscular HGB Conc 33.6 g/dl (31.0-35.0); Mean Corpuscular Hemoglobin 32.2 pg (27.0-33.0); Mean Corpuscular Volume 95.9 fL (80.0-98.0); Mean Platelet Volume 9.7 fL (9.4-12.3); Platelet Count 243 X10*3/uL (160-400); Red Cell Distribution Width 13.9 % (11.0-16.0); White Blood Count 3.3 X10*3/uL (4.8-10.8)
[2021-09-28 11:32] LABS: Appearance Urine CLEAR; Color Urine YELLOW; Glucose Urine UA NEG (NEG); Leukocyte Esterase Urine NEG (NEG); Nitrite Urine NEG (NEG); UACC Culture Trigger NO; Urine Blood TRACE (NEG); Urine Ketones 5 MG/DL (NEG); Urine Protein NEG (NEG-TRACE)
[2021-09-28 11:37] LABS: Lactic Acid 1.7 mmol/L (0.5-2.0)
[2021-09-28 11:39] LABS: C Reactive Protein 0.58 mg/dL (< or = 0.50)
[2021-09-28 11:41] LABS: RBC Urine 0-2 /HPF (0); Squamous Epithelial Cell Urine TRACE /LPF; WBC Urine 0 /HPF (0-4)
[2021-09-28] MEDS: Lactated Ringers 1,000 ML 80 ML IVCONT (11:43)
--- NOTE | 2021-09-28 11:50 | PC.NURSE ---
ede (, n, [facility]) called [facility] and was updated on pt status.
[2021-09-28 11:56] LABS: Anion Gap 11 (12-20); Blood Urea Nitrogen 5 mg/dL (9-16); Carbon Dioxide 25 mmol/L (22-29); Chloride 108 mmol/L (96-108); Creatinine Clr Calc Pharmacy 78.9; Estimated Glomerular Filt Rate > 60; Glucose Fasting 86 mg/dL (60-99); Magnesium 1.6 mg/dL (1.6-2.6); Potassium 3.3 mmol/L (3.3-5.1); Sodium 141 mmol/L (135-145)
[2021-09-28 12:09] LABS: Procalcitonin < 0.02 ng/mL
--- NOTE | 2021-09-28 12:10 | P.CONCC_ITS ---
History of Present Illness Data of Consult Service Date: 09/28/21 Requesting physician: Pauline Arreaga Primary Care Provider: Unknown Physician HPI Dr. Arreaga asked me to see Ms. Gupta because of hypotension. Very briefly, the patient is a 41 yo woman with h/o down syndrome and mild intellectual disability.? She lives at a assisted.? She has no past history of seizures, and is on no medications at the home. She was brought to the ED yesterday because of suspected seizures at home.? The patient also had reported decreased p.o. intake and increased thirst over the past week. In the ED, the patient was normothremic.? She was transiently hypotensive, responded to IV fluids.? Admitting labs were notable for WBC 5.2, hemoglobin 15 (unknown baseline), Na 141, K 2.9, BUN and creatinine 13/1.0, serum albumin 3.8.? No lactic acid was done.? Negative urinalysis, and negative COVID.? Blood cultures drawn, negative so far. The patient was admitted to Medicine because of hypokalemia and hypotension, and possible seizures. ?The patient remained in the ED because there were no beds in the hospital. ?Workup with abdominal CT showed pneumomediastinum with no intraperitoneal source identified.? There was a markedly distended bladder with mild bilateral hydroureteronephrosis.? Follow-up chest CT showed extensive pneumomediastinum and subcutaneous emphysema.? No source and no pneumothorax were identified. The patient was hypotensive through the afternoon yesterday, through the night, and early this morning, despite continuing volume resuscitation.? By the time Dr. Arreaga called me this morning, the patient had received 5 L of crystalloid.? Her blood pressure this morning was 87/48.? Heart rate was 71.? Respiratory rate was 13 with a sat of 100% on room air.? She was normothermic. I saw the patient in the ED. ?On my exam, she looks perhaps younger than her stated age.? She looks entirely well and nontoxic.? Breathing easy.? Mental status, I?m guessing, is normal.? I helped the nurses place a Bergman catheter, and arranged for a femoral stick for blood work.? Notably, when the Bergman catheter was placed, the urine came out with a yellow color, in contrast to the clear water color I would have expected after 5 L of intravenous fluids. IMPRESSION: 1. Underlying Downs syndrome. 2. Hypotension of unclear etiology.? The yellow urine and high Hb yesterday, along with the h/o decreased po intake, suggest, at the least, some element of dehydration, if not the major cause of her hypotension. 3. ID:? Grossly, the patient certainly does not look septic, she is afebrile, normal thermic, and had a normal white count.? The urine looks grossly uninfected, and she certainly does not have pneumonia. Would recommend checking a urine sodium and rechecking labs, including a lactic acid.? Keep in mind that we (I) do not know what this patient's normal blood pressure is.? From the looks of her (young, and diminutive stature), I would not be surprised if she normally runs in the 90s.? And the nurses should be checking her blood pressure with probably a pediatric blood pressure cuff. Continue volume resuscitation if indicated by the follow-up labs. At this point time, we have no beds in the ICU.? According to the nursing sterile supervisor, the patient will need to remain in the ED. Discussed with Dr. Arreaga. Time:? 50 min. ON LICENSE OF [facility] Past Medical History Medical History Down's syndrome Mood disorder Psychotic disorder Social History Social History Advance Directives: No Advance Directives Information Provided: No Patient : No Meds Allergies Allergy/AdvReac Type Severity Reaction Status Date / Time Seasonal Allergies Allergy Unknown Verified 09/28/21 08:45 Active Medications: Current Medications Enoxaparin Sodium (Enoxaparin Sodium 40 Mg/0.4 Ml Syringe) 40 mg SUBCUT Q24H [facility] Last Admin: 09/27/21 21:58 Dose: 40 mg Documented by: Lactated Ringer's (Lr) 1,000 mls @ 80 mls/hr IVCONT .[id number] [facility] Last Admin: 09/28/21 11:43 Dose: 80 mls/hr Documented by: Ampicillin Sodium/Sulbactam (Sodium 1.5 gm/ Sodium Chloride) 100 mls @ 200 mls/hr IV Q8H [facility] Last Admin: 09/28/21 11:43 Dose: 200 mls/hr Documented by: Home Medications Medication Instructions Recorded Confirmed Last Taken Type acetaminophen 325 mg tablet 650 mg PO Q4H PRN 09/28/21 09/28/21 Unknown History chlorhexidine gluconate 0.12 % 15 ml BUCCAL BID 09/28/21 09/28/21 Unknown History mouthwash (Peridex) Physical Exam Vital Signs: Vital Signs: Last Vital Signs Temp 97.9 F 09/28/21 11:47 Pulse 92 09/28/21 11:47 Resp 12 09/28/21 11:47 BP 96/57 L 09/28/21 11:47 Pulse Ox 100 09/28/21 11:47 BMI result Body Mass Index 21.5 Results Labs CBC & Chem 7: 09/28/21 11:15 09/28/21 11:15 Labs: Short CBC 09/27/21 09/28/21 Range/Units 16:37 11:15 WBC 5.2 3.3 L (4.8-10.8) X10*3/uL Hgb 15.2 13.2 (12.0-16.0) g/dl Hct 43.1 39.3 (37.0-47.0) % Plt Count 288 243 (160-400) X10*3/uL BMP 09/27/21 09/28/21 16:16 11:15 Sodium 141 141 Potassium 2.9 L 3.3 Chloride 102 108 Carbon Dioxide 26 25 BUN 13 5 L D Creatinine 1.01 0.66 Calcium 9.1 8.0 L D Liver Function 09/27/21 Range/Units 16:16 Total Bilirubin 0.7 (0.0-1.0) mg/dL AST 17 (5-31) U/L ALT 9 (0-31) U/L Alkaline Phosphatase 72 (39-117) U/L Albumin 3.8 (3.5-5.0) g/dL Urine 09/28/21 Range/Units 11:24 Urine Color YELLOW Urine Appearance CLEAR Urine pH 6.0 (5.0-8.0) Ur Specific [place] 1.020 (1.005-1.025) Urine Protein NEG (NEG-TRACE) MG/DL Urine Glucose (UA) NEG (NEG) MG/DL
[2021-09-28 12:49] LABS: Cortisol Random 13.8 ug/dL
--- NOTE | 2021-09-28 13:00 | CA_ITS ---
Transthoracic Echocardiogram Patient (Last, First, Middle): Rosa Gupta, Gender: Female Date of : 1980 Age: 41 Procedure Date: 09/28/2021 Procedure Type: Transthoracic Echocardiogram Location: ER Height: 152.4 cm Weight: 49.9 kg BSA: 1.45 m2 Heart Rate: bpm BP: 96 / 45 mmHg Bumper Operator: DG Rios MD: Pauline Arreaga MD Tube Puller: Travis Fuentes MD Symptoms: undifferentiated hypotension Study Quality: Fair ECG Rhythm: Sinus Conclusions: - 1. Normal LV systolic and diastolic function 2. Normal cardiac valvular Doppler 3. Normal calculated RV systolic pressure 4. Trivial pericardial effusion more prominent near the LV Findings Left Ventricle Normal left ventricular size, thickness, and systolic function. The visually estimated ejection fraction is between 60-65%. Spectral Doppler is indicative of a normal filling pattern. Right Ventricle Normal right ventricular cavity size and systolic function. Atria The left atrium is normal in size. Interatrial shunt cannot be excluded. The right atrium is normal in size. Aortic Valve Normal aortic valve structure and function. There is no aortic valve stenosis. There is no aortic valve regurgitation. Mitral Valve Normal mitral valve structure and function. There is trace mitral valve regurgitation. There is no mitral valve stenosis. Pulmonic Valve The pulmonic valve was not well visualized. Tricuspid Valve Likely normal tricuspid valve structure and function. There is trace tricuspid valve regurgitation. The right ventricular systolic pressure is normal. There is no evidence of pulmonary hypertension. Great Vessels All visible segments of the aorta are normal in size. The pulmonary artery was not well visualized. Venous The inferior vena cava was not well visualized. Pericardium/Pleural There is a trivial loculated pericardial effusion overlying the left ventricle. Prior Study Comparison No prior study available for comparison. Measurements 2D Linear Measurements IVSd: 0.80 0.6-0.9/0.6-1.0 cm LVIDd: 3.35 3.9-5.3/4.2-5.9 cm LVIDd Index: 2.31 2.4-3.2/2.2-3.1 cm/m2 LVIDs: 1.89 2.0-3.6 cm LVPWd: 0.83 0.7-1.1 cm Ao Root: 2.80 2.1-3.5 cm LA Diam: 2.20 2.7-3.8/3.0-4.0 cm LAIDs Index: 1.52 1.5-2.3 cm/m2 LV Mass: 89.42 67-162/88-224 g LV Mass Index: 61.67 43-95/49-115 g/m2 LVOT Diam: 2.00 3.0+(-)1.3 cm Mitral Valve MV Pk E: 0.76 MV PK A: 0.68 MV Decel Time: 383.00 E/A: 1.10 E'Lateral: 6.31 E'Medial: 5.55 E/E' Med: 13.60 E/E' Lat: 12.00 PHT: 112.00 MVA PHT: 1.96 Decel [place]: 1.97 Aortic Valve AoV Pk Walter: 1.16 AoV Mn Walter: 0.79 AoV VTI: 0.25 AoV Pk Grad: 5.00 Aov Mn Grad: 3.00 TELLO Cont.VTI: 2.88 LVOT LVOT Pk Walter: 0.96 LVOT Mn Walter: 0.66 LVOT VTI: 0.23 LVOT Pk Grad: 4.00 LVOT Mn Grad: 2.00 LVOT Diam: 2.00 LVOT Area: 3.14 Diastolic Function MV Pk E: 0.76 MV Pk A: 0.68 E/A: 1.10 E'Medial: 5.55 E/E' Med: 13.60 E' Laterial: 6.31 E/E' Lat: 12.00 Right Ventricle TAPSE (mm): 2.26 TVS' Walter: 11.40 Tricuspid Valve TR Pk Walter: 1.85 TR Pk Grad: 14.00 RA Press: 15.00 RVSP: 29.00 Great Vessels Aorta Ao Root-2D: 2.80 2.0-3.7 cm Ao Asc: 2.90 2.1-3.4 cm Updated in Other Vendor System with Status of Final Travis Fuentes MD electronically signed on 09/28/2021 4:17:01 PM with status of Final
[2021-09-28 14:45] LABS: Thyroid Stimulating Hormone 4.28 uIU/mL (0.32-4.0)
--- NOTE | 2021-09-28 15:05 | PC.NURSE ---
GREATER THAN 1000ML OF URINE WAS EMPTIEDFROM [facility] CATH BY PCT EARLIER
[2021-09-28] MEDS: Lactated Ringers 1,000 ML 999 ML IV (15:20)
[2021-09-28 15:45] LABS: Glucose, Whole Blood 75 mg/dL (60-115)
[2021-09-28 16:00] LABS: Free T4 (Free Thyroxine) 0.95 ng/dL (0.71-1.85)
[2021-09-28] MEDS: Dextrose 5 % and Lactated Ring 1,000 ML 80 ML IVCONT (16:05)
--- NOTE | 2021-09-28 16:30 | MHC.CM.PN ---
CM SPOKE TO PTS MOTHER, MARCELO [phone] WHO REQUESTED CM SPEAK TO HER OTHER DAUGHTER, ANGELICA [phone]. CM CONTACTED PTS SISTER ANGELICA, WHO REPORTS THE PT LIVES IN A [facility] SHE REPORTS THE PT DOES NOT REQUIRE DME AT BASELINE. SHE SAYS PTS PCP IS DR MENDY DOMINGUEZ ALSO REPORTS THE PT DOES NOT HAVE A HCP OR GUARDIAN THE NUMBER TO THE [facility]ILL[facility]UR[facility] IS [phone], HOWEVER SHE REPORTS IT HAS NOT BEEN WORKING. CM DID ATTEMPT TO CALL NUMBER, IT CONTINUES TO BE NON-WORKING ANGELICA PROVIDED THE NUMBER TO [facility] STAFF MEMBER, KAITLIN [phone] CURRENT DC PLAN IS FOR PT TO RETURN TO SKILLED NUR[facility] STAFF TO TRANSPORT
[2021-09-28] MEDS: Diatrizoate Meglumine, Sodium 30 ML SOLUTION PO (16:31)
--- NOTE | 2021-09-28 17:10 | P.PNIM_ITS ---
Subjective Subjective Date of Service: 09/28/21 Interval History: Patient has no complaints but may not be a reliable historian. She denies pain or dyspnea. BP finally improved after 6L of IV fluids. HR is normal. We have been unable to reach senior care staff via telephone to get additional history. Discussed over phone with her sister Ruth, who lives in [place]. Pt has had increasing cognitive impairment [forgetfulness, disorientation] as of late as well as paranoia [fear that senior care staff is trying to poison her]. Pt has also not been eating much over the last few weeks. No reported history of retching to explain an esophageal tear. 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 HEENT: sclera anicteric, moist mucus membranes Neck: supple Lungs: clear to auscultation bilaterally Heart: regular rate and rhythm, no murmurs Abd: soft, non-tender, non-distended Ext: no edema Skin: warm/well-perfused,no subcutaneous emphysema palpable Neuro: alert, in no distress Psych: impaired insight Objective Data Active Medications Enoxaparin Sodium (Enoxaparin Sodium 40 Mg/0.4 Ml Syringe) 40 mg SUBCUT Q24H [facility] Last Admin: 09/27/21 21:58 Dose: 40 mg Documented by: COOPEB Lactated Ringer's (Lr) 1,000 mls @ 80 mls/hr IVCONT .[id number] [facility] Last Infusion: 09/28/21 15:19 Dose: 0 mls/hr Documented by: IRINA Ampicillin Sodium/Sulbactam (Sodium 3 gm/ Sodium Chloride) 100 mls @ 200 mls/hr IV Q6H DAVID Dextrose/Lactated Ringer's (D5lr) 1,000 mls @ 80 mls/hr IVCONT .[id number] [facility] Last Admin: 09/28/21 16:05 Dose: 80 mls/hr Documented by: IRINA Labs CBC & Chem 7: 09/28/21 11:15 09/28/21 11:15 Labs: Laboratory Results - last 24 hr 09/28/21 09/28/21 09/28/21 11:15 11:15 11:15 MCV 95.9 MCH 32.2 MCHC 33.6 RDW 13.9 Plt Count 243 MPV 9.7 Absolute Nucleated RBC 0.000 Nucleated RBC % (auto) 0.0 Anion Gap 11 L Estim Creat Clear Calc 78.9 Estimated GFR > 60 POC Glucose Fasting Glucose 86 Lactic Acid 1.7 Calcium 8.0 L D Magnesium 1.6 C-Reactive Protein Procalcitonin TSH Free T4 Random Cortisol Urine Color Urine Appearance Urine pH Ur Specific [place] Urine Protein Urine Glucose (UA) Urine Ketones Urine Blood Urine Nitrite Ur Leukocyte Esterase Urine RBC Urine WBC Ur Squamous Epith Cells Urine Bacteria 09/28/21 09/28/21 09/28/21 11:15 11:15 11:15 MCV MCH MCHC RDW Plt Count MPV Absolute Nucleated RBC Nucleated RBC % (auto) Anion Gap Estim Creat Clear Calc Estimated GFR POC Glucose Fasting Glucose Lactic Acid Calcium Magnesium C-Reactive Protein 0.58 H Procalcitonin < 0.02 TSH 4.28 H Free T4 0.95 Random Cortisol 13.8 Urine Color Urine Appearance Urine pH Ur Specific [place] Urine Protein Urine Glucose (UA) Urine Ketones Urine Blood Urine Nitrite Ur Leukocyte Esterase Urine RBC Urine WBC Ur Squamous Epith Cells Urine Bacteria 09/28/21 09/28/21 11:24 15:40 MCV MCH MCHC RDW Plt Count MPV Absolute Nucleated RBC Nucleated RBC % (auto) Anion Gap Estim Creat Clear Calc Estimated GFR POC Glucose 75 Fasting Glucose Lactic Acid Calcium Magnesium C-Reactive Protein Procalcitonin TSH Free T4 Random Cortisol Urine Color YELLOW Urine Appearance CLEAR Urine pH 6.0 Ur Specific [place] 1.020 Urine Protein NEG Urine Glucose (UA) NEG Urine Ketones 5 Urine Blood TRACE Urine Nitrite NEG Ur Leukocyte Esterase NEG Urine RBC 0-2 Urine WBC 0 Ur Squamous Epith Cells TRACE Urine Bacteria NONE Impressions Head CT 09/27/21 16:52 IMPRESSION: No acute intracranial abnormalities. Abdomen/Pelvis CT 09/27/21 21:56 IMPRESSION: 1. Pneumomediastinum, partially seen at the superior margin of the study. No intraperitoneal source identified. 2. Markedly distended bladder with mild associated bilateral hydroureteronephrosis. This critical result was discussed by telephone with Dr. Reno on 09/27/2021 at 10:[address] 09/27/21 22:54 IMPRESSION: Extensive pneumomediastinum extending into the neck and right greater than left axilla as subcutaneous emphysema. The etiology is uncertain. The prior study had a history of decreased appetite. Was the patient retching to suggest Boerhaave's syndrome? Fleischner guidelines were followed. Chest CT 09/28/21 16:29 IMPRESSION: Extensive pneumomediastinum and subcutaneous emphysema in the anterior neck and the right axilla. There is a trickle of gas and oral contrast to the midesophagus just below the delfino suspicious for likely site for esophageal tear or rupture. Results were conveyed by phone to Dr. Arreaga at 5:02 PM TTE 09/28/21 1.? Normal LV systolic and diastolic function ? 2. Normal cardiac valvular Doppler ? 3. Normal calculated RV systolic pressure? 4. Trivial pericardial effusion more prominent near the LV ? ? ? 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 continue IV fluid repletion- likely all due to hypovolemia/dehydration # hypoK - repleted # possible seizure activity - Neuro consult + EEG pending # behavioral disturbance - Psych consult # VTE ppx - SCDs, d/c LMWH Quality Stroke Does the patient have a stroke diagnosis?: No VTE Prior VTE?: No VTE Risk Level:: Medical - moderate - high VTE Device Contraindication: Treatment Not Indicated VTE Drug Contraindication: N/A - Med Ordered
--- NOTE | 2021-09-28 17:40 | PHA.PROG ---
Admission Date/Time: September 27, 2021 20:59 Indication: Intra-abdominal Weight in k kg Adjusted body weight in Kg: Danielson body weight in Kg: Obesity Dosing Indication % IBW: Serum Creatinine - Last 168 Hours 09/27/21 09/28/21 16:16 11:15 Creatinine 1.01 0.66 Estimated CrCl and GFR - Last 168 Hours 09/27/21 09/28/21 16:16 11:15 Estim Creat Clear Calc 51.5 78.9 Estimated GFR 60 > 60 Vancomycin Loading Dose: 1250mg Current Vancomycin Dosing Regimen: 750mg Q12H Vancomycin Monitoring using AUC goal of 400 - 600 range with trough as surrogate marker: 430 Date and Time for next Vancomycin Level to be drawn: 09/30/21 @0500 Pharmacist Comments on Vancomycin Plan: Vancomycin dosing will take advantage of PingMD as a clinical decision support tool that uses Bayesian modeling to calculate individual patient's pharmacokinetic parameters and forecast the patient's drug concentration time course with the target goal AUC 24 range of 400 - 600 mg/L/hr.
[2021-09-28] MEDS: vancomycin HCL 1,250 MG in 0.9 % Sodium Chloride 250 ML 166.67 MG IV (17:58)
--- NOTE | 2021-09-28 18:41 | PM.EVENT ---
Event Note Date of Service: 09/28/21 Event Note: THORACIC SURGERY Repeat CT chest w/ oral contrast shows extensive pneumomediastinum and subcutaneous emphysema in the anterior neck and the right axilla. There is a trickle of gas and oral contrast to the midesophagus just below the delfino suspicious for likely site for esophageal tear or rupture . Patient hypotensive throughout the day, but responded well to IVF resuscitation. Likely due to volume depletion compared to sepsis. Patient not tachycardic, no fever, no leukocytosis (although does have low WBC). No active nausea, retching, or vomiting. No complaints of chest pain. Will keep patient strictly NPO, no sips, no orals meds. Keep on IV abx (vanco/zosyn/diflucan). Will plan for EGD w/ esophageal stent placement and R VATS mediastinal washout tomorrow. Would prefer this be done robotic @ [facility], however there are no beds available for transfer. Patient booked for OR @ [facility] after 2pm tomorrow. Will inquire again in the morning as to whether transfer to [facility] is possible early tomorrow morning if beds become available. Monitor for any further s/sx of hemodynamic instability or sepsis that would push for a more urgent surgical intervention. Case discussed with Dr. Jackson and Dr. Arreaga.
--- NOTE | 2021-09-28 18:45 | PC.NURSE ---
Pt. awake and interacting. oriented x 3. Denies complaints at this time. no abdominal tenderness on palpation. BS present x 4 quadrants. skin pale. Eye disoloration. VSS. remains NPO.
[2021-09-28] MEDS: Fluconazole in NaCl,Iso-Osm 100 MG in Container,Empty 0 ML 50 MG IV (19:26)
[2021-09-28] MEDS: Piperacillin Sodium/Tazobactam 3.375 GM in 0.9 % Sodium Chloride 50 ML IV (21:55)
--- NOTE | 2021-09-29 | EEG_ITS ---
The waking background activity consists of low voltage fast frequencies seen diffusely, intermixed with poorly regulated posterior 8 hertz alpha, muscle and eye movement artifacts. Several instances of posterior quadrant sharp theta discharges are seen, lasting 1-2 seconds. Photic stimulation and hyperventilation were omitted. The patient is somewhat agitated. IMPRESSION: This EEG is considered mildly abnormal due to occasional sharp theta discharges from the posterior quadrants. This suggests some element of cerebral irritability in the posterior quadrant. These findings are not developed well enough to be diagnostic for a seizure disorder. Clinical correlation is suggested. MD BLAINE Todd/ALBERTO / [id number]
[2021-09-29] MEDS: Piperacillin Sodium/Tazobactam 3.375 GM in 0.9 % Sodium Chloride 50 ML IV ×4 (04:36→21:08)
[2021-09-29] MEDS: vancomycin HCL 750 MG in 0.9 % Sodium Chloride 250 ML 265 MG IV ×2 (05:00→18:28)
[2021-09-29] MEDS: Dextrose 5 % and Lactated Ring 1,000 ML 80 ML IVCONT (05:17)
[2021-09-29 07:08] LABS: Hematocrit 32.4 % (37.0-47.0); Hemoglobin 11.2 g/dl (12.0-16.0); Mean Corpuscular HGB Conc 34.6 g/dl (31.0-35.0); Mean Corpuscular Hemoglobin 32.9 pg (27.0-33.0); Mean Corpuscular Volume 95.3 fL (80.0-98.0); Mean Platelet Volume 9.6 fL (9.4-12.3); Platelet Count 193 X10*3/uL (160-400); Red Cell Distribution Width 13.7 % (11.0-16.0); White Blood Count 3.2 X10*3/uL (4.8-10.8)
[2021-09-29 07:11] LABS: INTERNATIONAL NORM RATIO 1.1 (0.9-1.1); Prothrombin Time 12.7 SEC (9.9-13.0)
[2021-09-29 07:13] LABS: Partial Thromboplastin Time 36.6 SEC (24.1-38.0)
[2021-09-29 07:31] LABS: Anion Gap 11 (12-20); Blood Urea Nitrogen 2 mg/dL (9-16); Calcium 7.4 mg/dL (8.4-10.2); Carbon Dioxide 27 mmol/L (22-29); Chloride 105 mmol/L (96-108); Creatinine Clr Calc Pharmacy 88.2; Estimated Glomerular Filt Rate > 60; Glucose Random 103 mg/dL (60-115); Magnesium 1.5 mg/dL (1.6-2.6); Potassium 2.8 mmol/L (3.3-5.1); Sodium 140 mmol/L (135-145)
[2021-09-29 07:49] VITALS: BP 102/57; PULSE 83; RESP 14; TEMP 36.6; O2SAT 99
--- NOTE | 2021-09-29 07:51 | PC.NURSE ---
KAUFMAN CATH EMPTIED OF 2500ML CLEAR YELLOW URINE. PT IS AWAKE AND ASKING FOR JUICE AND TO USE BATHROOM TO VOID. REQUIRES REVIEW OF CARE PLAN
[2021-09-29 08:09] LABS: Adenovirus PCR Not Detected (Not Detect.); Bordetella parapertussis PCR Not Detected (Not Detect.); Bordetella pertussis PCR Not Detected (Not Detect.); Chlamydia pneumoniae PCR Not Detected (Not Detect.); Coronavirus 229E PCR Not Detected (Not Detect.); Coronavirus HKU1 PCR Not Detected (Not Detect.); Coronavirus NL63 PCR Not Detected (Not Detect.); Coronavirus OC43 PCR Not Detected (Not Detect.); Human metapneumovirus PCR Not Detected (Not Detect.); Influenza A PCR Not Detected (Not Detect.); Influenza B PCR Not Detected (Not Detect.); Mycoplasma pneumoniae PCR Not Detected (Not Detect.); Parainfluenza 1 PCR Not Detected (Not Detect.); Parainfluenza 2 PCR Not Detected (Not Detect.); Parainfluenza 3 PCR Not Detected (Not Detect.); Parainfluenza 4 PCR Not Detected (Not Detect.); RSV PCR Not Detected (Not Detect.); Rhino/Enterovirus PCR Not Detected (Not Detect.); SARS-CoV-2 PCR Not Detected (Not Detect.)
--- NOTE | 2021-09-29 09:29 | PM.PNTS ---
Subjective Subjective Date of Service: 09/29/21 Interval history: Patient remained in the ER waiting for a bed overnight. She remains NPO on IV antibiotics. Had no issues overnight. No further significant hypotension after IV fluid resuscitation yesterday. This morning the patient denies any significant complaints other than feeling thirsty and wish I could drink something . She denies any chest pain, fever, chills, shortness of breath, abdominal pain. She denies any increasing swelling in her chest or neck. She states I will be fine when I explained the situation to her. States she does not want any procedure or surgery. DIAGNOSTICS: Short CBC 09/29/21 Range/Units 06:55 WBC 3.2 L (4.8-10.8) X10*3/uL Hgb 11.2 L (12.0-16.0) g/dl Hct 32.4 L (37.0-47.0) % Plt Count 193 (160-400) X10*3/uL BMP 09/28/21 09/29/21 11:15 06:55 Sodium 141 140 Potassium 3.3 2.8 L Chloride 108 105 Carbon Dioxide 25 27 BUN 5 L D 2 L D Creatinine 0.66 0.59 Calcium 8.0 L D 7.4 L D Urine 09/28/21 Range/Units 11:24 Urine Color YELLOW Urine Appearance CLEAR Urine pH 6.0 (5.0-8.0) Ur Specific [place] 1.020 (1.005-1.025) Urine Protein NEG (NEG-TRACE) MG/DL Urine Glucose (UA) NEG (NEG) MG/DL EXAMINATION: XR CHEST 09/29/2021 CLINICAL INFORMATION: Follow-up pneumomediastinum. Esophageal perforation. COMPARISON: Previous chest CT scan from earlier this month TECHNIQUE: Frontal view of the chest was obtained. FINDINGS: The cardiac gland does not appear enlarged. There is pneumomediastinum. From previous CT scan. The lungs are clear. There is right apical pleural thickening. There is no pleural effusion or pneumothorax. There is a small amount of right chest wall emphysema right shoulder. Bony structures are unremarkable. XR/XR chest 1V IMPRESSION: Pneumomediastinum and right chest wall subcutaneous emphysema decreased from previous CT scans. EXAMINATION: CT CHEST WITHOUT CONTRAST 09/28/2021 CLINICAL INFORMATION: Pneumomediastinum. Evaluate for esophageal rupture or tear.? COMPARISON: CT chest without contrast 09/27/2021 TECHNIQUE: Multidetector volumetric CT imaging of the chest was done. Axial MIP volume rendering provided. Sagittal and coronal reformatted images were obtained.? This CT examination was performed using dose optimization techniques as appropriate, variously including the following: *Automated exposure control *Adjustment of mA and/or kV according to patient size (this includes techniques or standardized protocols for targeted exams where dose is matched to indication/reason for exam; i.e. extremities or head) *Use of iterative reconstruction technique DLP: 215 mGy-cm FINDINGS: CORK COMPOUNDER: Well-inflated lungs. LUNGS: The lungs are well-expanded without any acute pneumonic process. No consolidation, mass or nodule visualized.? MEDIASTINUM: Again visualized is moderate extensive pneumomediastinum similar to earlier exam 09/27/2021. There is a speckle of gas and oral contrast seen extraluminal to the midesophagus on axial image 26/2 and 27/2. There is linear gas at the same area on the previous CT from 09/27/2021. An esophageal tear at this site is highly suspected. Heart size and the great vessels are normal caliber. The thyroid lobes are symmetric and normal. No abnormal size mediastinal lymphadenopathy. No pericardial effusion. However there is focal air collection seen along the right and left anterior pericardial sac part of pneumomediastinum. PLEURA: There is no pleural effusion. No pleural mass or thickening. There is no evidence of pneumothorax. AXILLA: There is moderate gas seen within the right axilla, bottom of the neck, superior mediastinum and the left midneck region similar to previous study.? UPPER ABDOMEN: Visualized liver and? spleen is unremarkable. There is diluted Gastrografin in the stomach and distal esophagus? OSSEOUS STRUCTURES: There is no lytic or sclerotic process seen? CT/CT chest wo con IMPRESSION: Extensive pneumomediastinum and subcutaneous emphysema in the anterior neck and the right axilla. There is a trickle of gas and oral contrast to the midesophagus just below the delfino suspicious for likely site for esophageal tear or rupture.? ? Results were conveyed by phone to Dr. Arreaga at 5:02 PM Physical Exam Vital Signs: Vital Signs: Last Vital Signs Temp 97.9 F 09/29/21 07:49 Pulse 83 09/29/21 07:49 Resp 14 09/29/21 07:49 BP 102/57 L 09/29/21 07:49 Pulse Ox 99 09/29/21 07:49 BMI result Body Mass Index 21.5 General: No acute distress, resting comfortably in bed, well developed Head: Normocephalic, atraumatic, symmetric Eyes: Sclera anicteric, eyelids without edema or erythema ENT: Oral mucosa and tongue are dry without lesions or exudates Neck: Soft, supple, symmetric, trachea midline, no crepitus palpated, no mass visualized or palpated Cardiovascular: Regular rate and rhythm, no murmur/rubs/gallops, BUE and BLE without edema, no calf tenderness bilaterally Respiratory: Lungs CTA B, breathing nonlabored, speaking in full sentences, on room air. No use of accessory muscles. No crepitus palpated over the chest. Gastrointestinal: Soft, non-tender, non-distended, +normoactive bowel sounds. Skin: Warm and dry throughout, no rashes Lymphatic: no cervical, supraclavicular, or infraclavicular lymphadenopathy noted Psychiatric: No agitation, appropriate affect Procedures Date of Service Date of Service: 09/29/21 Progress Note: A&P Assessment and plan (1) Esophageal perforation: Status: Acute Assessment and Plan: 41 year old female with Down Syndrome presenting to the hospital from her skilled nursing after tonic-clonic movements concerning for seizure. During workup she was found to have pneumomediastinum and evidence of small esophageal perforation. Unknown cause as patient denies any recent retching, vomiting, or dysphasia although she is a poor historian. Patient does not appear ill this morning. Does not appear septic. Patient has no complaints other than the desire to drink something. Discussed the patient with Dr. Jackson. Will cancel plans for OR today and opt for conservative management. Patient will need to be strictly NPO (no PO meds, no sips, no ice chips) for 7 days. At that time we will likely need a repeat barium swallow/CT to evaluate the leak prior to initiating any liquid diet. Patient will need to be started on TPN for nutritional support during this time. Continue with broad spectrum antibiotics: Vanco, Zosyn, Diflucan. Monitor patient closely for any s/sx worsening infection/sepsis. Trend WBC and temp. We will follow along closely. Should the patient's condition deteriorate we will plan for surgical intervention. Fall Risk Details Current Medications: Current Medications Lactated Ringer's (Lr) 1,000 mls @ 80 mls/hr IVCONT .[id number] [facility] Last Admin: 09/28/21 22:04 Dose: Not Given Documented by: Dextrose/Lactated Ringer's (D5lr) 1,000 mls @ 80 mls/hr IVCONT .[id number] [facility] Last Admin: 09/29/21 05:17 Dose: 80 mls/hr Documented by: Fluconazole 100 mg/ IV (Miscellaneous Supplies) 50 mls @ 50 mls/hr IV Q24H [facility] Last Infusion: 09/28/21 20:26 Dose: Infused Documented by: Piperacillin Sod/Tazobactam (Sod 3.375 gm/ Sodium Chloride) 50 mls @ 100 mls/hr IV Q6H [facility] Last Infusion: 09/29/21 09:04 Dose: Infused Documented by: Vancomycin HCl 750 mg/ Sodium (Chloride) 265 mls @ 265 mls/hr IV Q12H [facility] Last Infusion: 09/29/21 06:00 Dose: Infused Documented by: Time Spent With Patient Time: Total time spent is greater than 50% in coordination of care (as documented) at patient's floor/unit and/or counseling patient: Time with patient: 15 - 24 minutes Quality Stroke Does the patient have a stroke diagnosis?: No VTE Prior VTE?: No VTE Risk Level:: Medical - moderate - high VTE Device Contraindication: Treatment Not Indicated VTE Drug Contraindication: N/A - Med Ordered
--- NOTE | 2021-09-29 09:53 | PC.NURSE ---
REPORT GIVEN FOR TRANSFER TO OVERFLOW UNIT
--- NOTE | 2021-09-29 10:45 | PC.NURSE ---
Pt transfered to Overflow from Main ED, Alert oriented to person at this time. NSR on monitor, no complaints of pain at this time. Plan for EEG at this time. Skin intact.Call muir within reach, will continue to monitor.
--- NOTE | 2021-09-29 11:21 | PC.NURSE ---
Spoke to pt's sister Ruth in detail about POC. Pt to EEG at this time.
[2021-09-29 12:07] LABS: Triglycerides 81 mg/dL
--- NOTE | 2021-09-29 12:15 | P.PNIM_ITS ---
Subjective Subjective Date of Service: 09/29/21 Interval History: Being followed for esophageal perforation, patient denies pain, no fevers, no chills, no nausea, no vomiting, no overnight issues. 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 Neck: supple Lungs: clear to auscultation bilaterally Heart: regular rate and rhythm, no murmurs Abd: soft, non-tender, non-distended Ext: no edema Skin: warm/well-perfused,no subcutaneous emphysema palpable Neuro: Awake, alert, in no distress Psych: impaired insight Objective Data Active Medications Lactated Ringer's (Lr) 1,000 mls @ 80 mls/hr IVCONT .[id number] [facility] Last Admin: 09/28/21 22:04 Dose: Not Given Documented by: MARY Non-Admin Reason: IV Running Fluconazole 100 mg/ IV (Miscellaneous Supplies) 50 mls @ 50 mls/hr IV Q24H [facility] Last Infusion: 09/28/21 20:26 Dose: 0 mls/hr Documented by: MARY Piperacillin Sod/Tazobactam (Sod 3.375 gm/ Sodium Chloride) 50 mls @ 100 mls/hr IV Q6H [facility] Last Infusion: 09/29/21 09:04 Dose: 0 mls/hr Documented by: KEATON Vancomycin HCl 750 mg/ Sodium (Chloride) 265 mls @ 265 mls/hr IV Q12H [facility] Last Infusion: 09/29/21 06:00 Dose: 0 mls/hr Documented by: MARY Magnesium Sulfate (Magnesium Sulfate/H2o) 2 gm in 50 mls @ 25 mls/hr IV ONCE ONE Stop: 09/29/21 13:24 Potassium Chloride () 10 meq in 100 mls @ 100 mls/hr IV Q1H [facility] Stop: 09/29/21 15:59 Labs CBC & Chem 7: 09/29/21 06:55 09/29/21 06:55 Labs: Laboratory Results - last 24 hr 09/28/21 09/28/21 09/28/21 11:15 11:15 15:40 MCV MCH MCHC RDW Plt Count MPV Absolute Nucleated RBC Nucleated RBC % (auto) PT INR APTT Anion Gap Estim Creat Clear Calc Estimated GFR POC Glucose 75 Random Glucose Calcium Magnesium Triglycerides TSH 4.28 H Free T4 0.95 Random Cortisol 13.8 Respiratory Panel Chin Adenovirus (Rapid PCR) B.pert (TEM-PCR) B.parapertussis DNA PCR C. pneumoniae DNA (PCR) Coronavirus OC43 (PCR) Coronavirus HKU1 (PCR) Coronavirus 229E (PCR) Coronavirus NL63 (PCR) Human Metapneumovir PCR Influenza A (RT-PCR) Influenza B (RT-PCR) M. pneumoniae (PCR) Parainfluenza 1 (PCR) Parainfluenza 2 (PCR) Parainfluenza 3 (PCR) Parainfluenza 4 (PCR) RSV (PCR) Entero/Rhino (PCR) SARS-CoV-2 RNA (RT-PCR) 09/29/21 09/29/21 09/29/21 06:55 06:55 06:55 MCV 95.3 MCH 32.9 MCHC 34.6 RDW 13.7 Plt Count 193 MPV 9.6 Absolute Nucleated RBC 0.000 Nucleated RBC % (auto) 0.0 PT 12.7 INR 1.1 APTT 36.6 Anion Gap 11 L Estim Creat Clear Calc 88.2 Estimated GFR > 60 POC Glucose Random Glucose 103 Calcium 7.4 L D Magnesium 1.5 L Triglycerides 81 TSH Free T4 Random Cortisol Respiratory Panel Chin Adenovirus (Rapid PCR) B.pert (TEM-PCR) B.parapertussis DNA PCR C. pneumoniae DNA (PCR) Coronavirus OC43 (PCR) Coronavirus HKU1 (PCR) Coronavirus 229E (PCR) Coronavirus NL63 (PCR) Human Metapneumovir PCR Influenza A (RT-PCR) Influenza B (RT-PCR) M. pneumoniae (PCR) Parainfluenza 1 (PCR) Parainfluenza 2 (PCR) Parainfluenza 3 (PCR) Parainfluenza 4 (PCR) RSV (PCR) Entero/Rhino (PCR) SARS-CoV-2 RNA (RT-PCR) 09/29/21 08:03 MCV MCH MCHC RDW Plt Count MPV Absolute Nucleated RBC Nucleated RBC % (auto) PT INR APTT Anion Gap Estim Creat Clear Calc Estimated GFR POC Glucose Random Glucose Calcium Magnesium Triglycerides TSH Free T4 Random Cortisol Respiratory Panel Chin See Note Adenovirus (Rapid PCR) Not Detected B.pert (TEM-PCR) Not Detected B.parapertussis DNA PCR Not Detected C. pneumoniae DNA (PCR) Not Detected Coronavirus OC43 (PCR) Not Detected Coronavirus HKU1 (PCR) Not Detected Coronavirus 229E (PCR) Not Detected Coronavirus NL63 (PCR) Not Detected Human Metapneumovir PCR Not Detected Influenza A (RT-PCR) Not Detected Influenza B (RT-PCR) Not Detected M. pneumoniae (PCR) Not Detected Parainfluenza 1 (PCR) Not Detected Parainfluenza 2 (PCR) Not Detected Parainfluenza 3 (PCR) Not Detected Parainfluenza 4 (PCR) Not Detected RSV (PCR) Not Detected Entero/Rhino (PCR) Not Detected SARS-CoV-2 RNA (RT-PCR) Not Detected Assessment and Plan (1) Esophageal perforation: Status: Acute (2) Pneumomediastinum: Status: Acute (3) Hypokalemia: Status: Acute (4) Hypotension: Status: Acute Assessment and Plan: 41[facility] F [facility] 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, no other medical problems, sent in for reported tonic-clonic movements though no seizure history [but 2 visits to [facility] in last 3 mo for syncope] admitted for hypotension,found to have extensive pneumomediastinum with evidence of esophageal perforation # esophageal perforation/ pneumomediastinum - patient remained asymptomatic denies she chest pain no shortness of breath, Re-evaluated by thoracic surgery this morning and since patient is clinically stable, thoracic surgery canceled plans for OR today and recommend strict NPO and IV antibiotic for at least 7 days then they will re-evaluate patient with repeat barium swallow and CT chest, will place patient on TPN, will order midline Will continue IV vancomycin and Zosyn follow blood culture, CBC and elect rolytes closely. Continue IV fluconazole # undifferentiated hypotension - not septic but covering ABX as above. Hypotension resolved # hypoK - repleted # possible seizure activity - no recurrent seizures noted, continue seizure precautions, follow Neurology input, EEG pending # behavioral disturbance - Psych consult # VTE ppx - SCDs, d/c LMWH Quality Stroke Does the patient have a stroke diagnosis?: No VTE Prior VTE?: No VTE Risk Level:: Medical - moderate - high VTE Device Contraindication: Treatment Not Indicated VTE Drug Contraindication: N/A - Med Ordered
--- NOTE | 2021-09-29 12:19 | MHC.CLN ---
RE: CONSULT PT TO START PPN TODAY RECOMMEND DAY 1 : D10AA4.25 AT 30ML/HR TO PROVIDE 367KCALS, 31G PROTEIN DISCUSSED WITH PHARM FULL NUTRITION ASSESSMENT TO FOLLOW REPLETE LYTES NEEDED FOLLOWING
[2021-09-29 12:29] LABS: Phosphorus 2.2 mg/dL (2.7-4.5)
[2021-09-29] MEDS: Lactated Ringers 1,000 ML 80 ML IVCONT (12:39)
[2021-09-29] MEDS: Magnesium Sulfate/H2O 2 GM/50 ML PIGGYBACK IV (12:42)
[2021-09-29 13:11] VITALS: BP 104/49; PULSE 83; RESP 18; O2SAT 100
[2021-09-29] MEDS: Potassium Chloride/H20 10 MEQ/100 ML PIGGYBACK 100 MEQ IV ×4 (14:48→18:49)
[2021-09-29 16:09] VITALS: BP 109/59; PULSE 83; RESP 12; O2SAT 100
[2021-09-29 18:00] VITALS: BP 111/62; PULSE 92; RESP 12; O2SAT 100
--- NOTE | 2021-09-29 19:45 | PC.NURSE ---
Assumed care of pt at 1900. Pt transferred to different room d/t compliance monitor dysfunction, now on tele w/ continuous monitoring. Potassium, LR, vanc infusing. Pt remains NPO. Expressing frustration re: remaining in ED overflow area rather than inpt bed. Verbal reassurance provided. Pt given call light, denies needs at this time, educated to call for assistance.
[2021-09-29 20:44] VITALS: BP 111/65; PULSE 88; RESP 17; TEMP 37.1; O2SAT 100
[2021-09-29] MEDS: Fluconazole in NaCl,Iso-Osm 100 MG in Container,Empty 0 ML 50 MG IV (21:06)
--- NOTE | 2021-09-29 22:22 | PC.NURSE ---
[employer] infusion initially held d/t admin instructions on bag that state central line infusion only. Pharmacy called to notify this RN that administration via peripheral IV is acceptable. Med administered at this time as documented in MAR
--- NOTE | 2021-09-29 23:04 | PC.NURSE ---
Pt refusing new bag of LR to be attached, states repeatedly no I'll be fine. Attempted to educate pt on need for hydration d/t NPO status. Pt continues to refuse, asked can I switch beds now? Also stated can you take my hair off? Based on MD chandra notes, pt has been having similar episodes of increased paranoia / confusion as of late. Will continue to provide verbal reassurance and therapeutic communication
[2021-09-30] VITALS (7 sets, daily range): BP systolic 95–115; BP diastolic 52–68; PULSE 74–107; RESP 11–14; TEMP 36.5–36.8; O2SAT 97–100; BMI 21.5
[2021-09-30] MEDS: Piperacillin Sodium/Tazobactam 3.375 GM in 0.9 % Sodium Chloride 50 ML IV ×4 (03:38→22:12)
[2021-09-30 05:20] LABS: Vancomycin Trough 10.3 mcg/mL (10.0-20.0)
[2021-09-30 08:24] LABS: MANUAL DIFF FLAG NO
[2021-09-30 08:27] LABS: Basophils Absolute Auto 0.1 X10*3/uL (0.0-0.2); Basophils Percent Auto 2.1 % (0-2); Eosinophils Absolute Auto 0.1 X10*3/uL (0.0-0.4); Eosinophils Percent Auto 3.3 % (0-4); Hematocrit 37.2 % (37.0-47.0); Hemoglobin 13.1 g/dl (12.0-16.0); Imm Gran Abs Auto 0.02 X10*3/uL (0.00-0.03); Imm Gran Pct Auto 0.6 % (0.0-0.4); Lymphocytes Absolute Auto 0.9 X10*3/uL (1.2-4.9); Lymphocytes Percent Auto 26.3 % (20-40); Mean Corpuscular HGB Conc 35.2 g/dl (31.0-35.0); Mean Corpuscular Hemoglobin 32.8 pg (27.0-33.0); Mean Corpuscular Volume 93.2 fL (80.0-98.0); Mean Platelet Volume 9.5 fL (9.4-12.3); Monocytes Absolute Auto 0.3 X10*3/uL (0.1-1.2); Monocytes Percent Auto 10.3 % (2-11); Neutrophils Absolute Auto 1.9 x10*3/uL (2.0-8.3); Neutrophils Percent Auto 57.4 % (45-73); Platelet Count 189 X10*3/uL (160-400); Red Blood Count 3.99 X10*6/uL (4.20-5.50); Red Cell Distribution Width 13.3 % (11.0-16.0); White Blood Count 3.3 X10*3/uL (4.8-10.8)
[2021-09-30 09:04] LABS: Anion Gap 9 (12-20); Blood Urea Nitrogen 3 mg/dL (9-16); Calcium 8.1 mg/dL (8.4-10.2); Carbon Dioxide 31 mmol/L (22-29); Chloride 102 mmol/L (96-108); Creatinine Clr Calc Pharmacy 81.3; Estimated Glomerular Filt Rate > 60; Glucose Random 107 mg/dL (60-115); Magnesium 2.2 mg/dL (1.6-2.6); Phosphorus 2.8 mg/dL (2.7-4.5); Potassium 3.1 mmol/L (3.3-5.1); Sodium 139 mmol/L (135-145)
--- NOTE | 2021-09-30 10:40 | MHC.CLN ---
F/U RECOMMEND DAY 2 : INCREASE D10AA4.25 AT 50ML/HR TO PROVIDE 612KCALS, 51G PROTEIN DISCUSSED WITH PHARM; REPLETE LYTES NEEDED SEE ALSO CLINICAL NUTRITION ASSESSMENT
--- NOTE | 2021-09-30 10:48 | PC.NURSE ---
Pt received from night monitor: Pt AOx2-3, remains sleeping. Pt still receiving IV ABT and TPN as per esophageal perf. Pt remains NPO as well. Pt offers no complains at this time and no fevers noted. Heart sounds normal and lungs clear. Pt abd soft and non-tender. Bergman in tact and draining well
--- NOTE | 2021-09-30 11:27 | P.PNTS_ITS ---
Subjective Subjective Date of Service: 09/30/21 Interval history: Patient was seen and examined this morning. Patient has remained n.p.o. now for 2 days due to her esophageal perforation.. TPN has been initiated, remains afebrile and upon interview has no complaints however patient is a poor historian due to mental limitations. She denies any fevers, chills, shortness of breath, chest pain, dysphagia or odynophagia. Remaining 12 point review of systems remains negative. Physical Exam Vital Signs: Vital Signs: Last Vital Signs Temp 98.2 F 09/30/21 09:00 Pulse 85 09/30/21 09:00 Resp 14 09/30/21 09:00 BP 101/55 L 09/30/21 09:00 Pulse Ox 97 09/30/21 09:00 BMI result Body Mass Index 21.5 Const: General: comfortable, no acute distress and lethargic Tom entation/consciousness: lethargic HENMT: Head: Yes atraumatic Eyes: Conjunctivae: conjunctivae normal Sclerae: sclerae normal Neck: Neck: Yes trachea midline, Yes supple and Yes other ( No subcutaneous emphysema noted on physical exam.) Chest: Other: Unable to appreciate any subcutaneous emphysema or crepitus along anterior, left, right or posterior chest wall Resp: Other: breath sounds are clear to auscultation bilaterally throughout all lung goodrich with no adventitious sounds such as wheezes or rhonchi. Effort & Inspection: normal respiratory effort Cardio: Jugular venous distension: no JVD Rate: regular rate GI: Inspection: Yes normal to inspection Palpation (GI): Soft to palpation and nontender Auscultation: normal bowel sounds Extrem: General: Yes normal to inspection and Yes no clubbing, cyanosis or edema Procedures Date of Service Date of Service: 09/30/21 Progress Note: A&P Assessment and plan (1) Esophageal perforation: Status: Acute Assessment and Plan: 41 year old female with Down Syndrome [facility] tonic-clonic movements concerning for seizure. During workup she was found to have pneumomediastinum and evidence of small esophageal perforation. Unknown cause as patient denies any recent retching, vomiting, or dysphasia although she is a poor historian. * Patient does not have a toxic appearance. * Discussed the patient with Dr. Jackson. Will continue to hold off on any plans for and continue conservative management. * Patient will need to be strictly NPO (no PO meds, no sips, no ice chips) for 7 days. At that time we will likely need a repeat barium swallow/CT to evaluate the leak prior to initiating any liquid diet. * Continue with TPN for nutritional support during this time. * Continue with broad spectrum antibiotics: Vanco, Zosyn, Diflucan. * Monitor patient closely for any s/sx worsening infection/sepsis. * Trend WBC and temp. We will follow along closely. Should the patient's condition deteriorate we will plan for surgical intervention. Fall Risk Details Current Medications: Current Medications Fluconazole 100 mg/ IV (Miscellaneous Supplies) 50 mls @ 50 mls/hr IV Q24H [facility] Last Infusion: 09/29/21 22:34 Dose: Infused Documented by: Piperacillin Sod/Tazobactam (Sod 3.375 gm/ Sodium Chloride) 50 mls @ 100 mls/hr IV Q6H [facility] Last Infusion: 09/30/21 10:32 Dose: Infused Documented by: Vancomycin HCl 750 mg/ Sodium (Chloride) 265 mls @ 265 mls/hr IV Q12H [facility] Last Admin: 09/30/21 06:23 Dose: Not Given Documented by: Multivitamins 20 ml/ Trace Metals 2 ml/ Amino Acids/Electrolytes/Dextrose 720 mls @ 30 mls/hr IV DAILY@1800 [facility] Stop: 09/30/21 17:59 Last Admin: 09/29/21 22:41 Dose: 30 mls/hr Documented by: Time Spent With Patient Time: Total time spent is greater than 50% in coordination of care (as documented) at patient's floor/unit and/or counseling patient: Time with patient: 15 - 24 minutes Quality Stroke Does the patient have a stroke diagnosis?: No VTE Prior VTE?: No VTE Risk Level:: Medical - moderate - high VTE Device Contraindication: Treatment Not Indicated VTE Drug Contraindication: N/A - Med Ordered
--- NOTE | 2021-09-30 12:38 | P.PNIM_ITS ---
Subjective Subjective Date of Service: 09/30/21 Interval History: Resting comfortably offers no acute complaints, no issues overnight, no fevers, no chills tolerating PPN. Review of Systems Review of Systems: Yes all other systems are reviewed and are negative Physical Exam Vital Signs: Vital Signs: Last Vital Signs Temp 98.2 F 09/30/21 09:00 Pulse 85 09/30/21 09:00 Resp 14 09/30/21 09:00 BP 101/55 L 09/30/21 09:00 Pulse Ox 97 09/30/21 09:00 BMI result Body Mass Index 21.5 Gen:? Awake alert, no acute distress, typical features of trisomy-21 Neck: supple Lungs: clear to auscultation bilaterally Heart: regular rate and rhythm, no murmurs Abd: soft, non-tender, non-distended Ext: no edema Skin: warm/well-perfused,no subcutaneous emphysema palpable Neuro:? Awake, alert, in no distress Psych: impaired insight Objective Data Active Medications Fluconazole 100 mg/ IV (Miscellaneous Supplies) 50 mls @ 50 mls/hr IV Q24H [facility] Last Infusion: 09/29/21 22:34 Dose: 0 mls/hr Documented by: RUBI Piperacillin Sod/Tazobactam (Sod 3.375 gm/ Sodium Chloride) 50 mls @ 100 mls/hr IV Q6H [facility] Last Infusion: 09/30/21 10:32 Dose: 0 mls/hr Documented by: ZHOU-RAHELE Multivitamins 20 ml/ Trace Metals 2 ml/ Amino Acids/Electrolytes/Dextrose 720 mls @ 30 mls/hr IV DAILY@1800 [facility] Stop: 09/30/21 17:59 Last Admin: 09/29/21 22:41 Dose: 30 mls/hr Documented by: RUBI Vancomycin HCl 750 mg/ Sodium (Chloride) 265 mls @ 265 mls/hr IV Q12H [facility] Labs CBC & Chem 7: 09/30/21 08:21 09/30/21 08:21 Labs: Laboratory Results - last 24 hr 09/30/21 09/30/21 09/30/21 04:45 08:21 08:21 MCV 93.2 MCH 32.8 MCHC 35.2 H RDW 13.3 Plt Count 189 MPV 9.5 Immature Gran % (Auto) 0.6 H Neut % (Auto) 57.4 Lymph % (Auto) 26.3 Sibley % (Auto) 10.3 Eos % (Auto) 3.3 Baso % (Auto) 2.1 H Lymph # (Auto) 0.9 L Sibley # (Auto) 0.3 Eos # (Auto) 0.1 Baso # (Auto) 0.1 Abs Immat Gran (auto) 0.02 Absolute Neuts (auto) 1.9 L Absolute Nucleated RBC 0.000 Nucleated RBC % (auto) 0.0 Anion Gap 9 L Estim Creat Clear Calc 81.3 Estimated GFR > 60 Random Glucose 107 Calcium 8.1 L D Phosphorus 2.8 Magnesium 2.2 Vancomycin Trough 10.3 Microbiology Microbiology Results: Microbiology 09/28/21 11:15 Blood Culture - Preliminary Blood - Venous Prelim: GPR Gram Stain only 09/28/21 10:50 Blood Culture - Preliminary Blood - Venous No growth after 24 hours. Assessment and Plan (1) Esophageal perforation: Status: Acute (2) Pneumomediastinum: Status: Acute (3) Hypokalemia: Status: Acute (4) Hypotension: Status: Acute Assessment and Plan: 41yo F [facility] 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, no other medical problems, sent in for reported tonic-clonic movements though no seizure history [but 2 visits to [facility] in last 3 mo for syncope] admitted for hypotension,found to have extensive pneumomediastinum with evidence of esophageal perforation # esophageal perforation/ pneumomediastinum patient remains asymptomatic denies chest pain, no shortness of breath, no overnight fever chills ? Continue strict NPO and IV vancomycin Zosyn, and IV fluconazole day 3 thoracic surgery will re-evaluate patient in 1 week with repeat barium swallow and CT chest Continue PPN/start TPN, once midline placed ? 1/2 blood culture growing Gram-positive rods, follow CBC and electrolytes closely. ? # undifferentiated hypotension - not septic but covering ABX as above.? Hypotension resolved # hypoK - repleted # possible seizure activity - no recurrent seizures noted, continue seizure precautions, await Neurology input, EEG pending # behavioral disturbance - Psych consult # VTE ppx - SCDs, d/c LMWH Quality Stroke Does the patient have a stroke diagnosis?: No VTE Prior VTE?: No VTE Risk Level:: Medical - moderate - high VTE Device Contraindication: Treatment Not Indicated VTE Drug Contraindication: N/A - Med Ordered
--- NOTE | 2021-09-30 12:40 | HE.PHANOTE ---
Vancomycin was not given 09/30 @ 0600. Next dose switch to be given at 1200.
--- NOTE | 2021-09-30 13:25 | PC.NURSE ---
LOCO Casanova made aware that pt requires PICC line insertion. Pt pending IV ABT and is already receiving TPN through peripheral line (MD's aware). RN will continue to monitor until pt is able to receive PICC line.
[2021-09-30] MEDS: vancomycin HCL 750 MG in 0.9 % Sodium Chloride 250 ML 265 MG IV (14:15)
--- NOTE | 2021-09-30 15:46 | PC.NURSE ---
IR ANGEL Casanova at bedside with MD Sanchez to try to explain to pt why mid line necessary for pt care. Also called pt's mother to try and explain the situation. However, pt continues to refuse, stating she will be fine and she [facility]. Pt states she'll think about it later. Will attempt for pt to have mid line insertion sometime early tomorrow morning. TPA remains infusing through L hand 20g.
--- NOTE | 2021-09-30 16:31 | PC.NURSE ---
Pt refusing KCl 10mEq IV PB at this time. See note on MAR at this time. RN jonathan continue to monitor. MD Sanchez aware.
[2021-09-30] MEDS: Fluconazole in NaCl,Iso-Osm 100 MG in Container,Empty 0 ML 50 MG IV (18:42)
--- NOTE | 2021-09-30 19:30 | PC.NURSE ---
Assumed care of pt Pt resting on hospital bed No apparent distress Will continue to monitor
[2021-09-30] MEDS: Potassium Chloride/H20 10 MEQ/100 ML PIGGYBACK 100 MEQ IV (20:37)
--- NOTE | 2021-09-30 22:50 | PC.NURSE ---
Pt medicated per MAR Started 3rd IV on RT AC. Pt tolerated well. After the antibiotics, pt requested 3rd IV to be taken out. 3rd IV removed Pt tolerated well Will continue to monitor
--- NOTE | 2021-10-01 01:55 | PC.NURSE ---
Pt refused vancomycin Pt AxO x 4, clear and complete sentences Pt states I don't want it. I'll be ok.
[2021-10-01 03:07] VITALS: BP 125/61; PULSE 80; RESP 15; O2SAT 98
--- NOTE | 2021-10-01 04:27 | PC.NURSE ---
Pt refusing zosyn. Pt stating I'm fine. Don't worry about it. Pt alert and oriented Dr. Yousif made aware.
[2021-10-01 06:24] VITALS: BP 102/48; PULSE 88; RESP 12; O2SAT 100
--- NOTE | 2021-10-01 08:11 | PC.NURSE ---
Attempted to given scheduled IV ABT this morning. Pt adamently refusing, stating she is fine... trust me. Education attempted to be given to pt, but pt continues to state she does not want anything. TPN still running through L hand peripheral line with no noted problems. MD Sanchez made aware. RN will continue to monitor.
--- NOTE | 2021-10-01 08:59 | PC.NURSE ---
Addendum entered by Julia Dalal RN 10/01/21 09:06: Also castellano catheter remains in tact and draining. Urine appears concentrated. Original Note: [facility]: Pt AOx3 and is now refusing IV ABT. As per [facility] shift lead RN, pt refused IV ABT then too. Pt was given education based on need for IV abt but pt continues to states she is fine. MD Sanchez aware. Heart sounds normal, NSR. Lungs clear. Pt abd soft, non-tender. Pt mucous membranes as she has been NPO for several days due to need for eventually esophageal surgery. TPN continue to run through peripheral line. Pending IR RN in attempt to insert mid line today.
--- NOTE | 2021-10-01 09:33 | PC.NURSE ---
MD Sanchez at bedside for rounds. As per , pt's healthcare proxy will be reached again, and pt will need to eventually be medically and physically retrained in order to receive medications. Pending further at this time. RN will continue to monitor.
[2021-10-01 11:09] VITALS: BP 119/53; PULSE 99; RESP 13; TEMP 37.3; O2SAT 99
--- NOTE | 2021-10-01 11:38 | MHC.CLN ---
F/U PT REFUSED MIDLINE PLACEMENT RECOMMEND DAY 3 : CONTINUE D10AA4.25 AT 50ML/HR TO PROVIDE 612KCALS, 51G PROTEIN START 16ML OF 20% LIPIDS TO PROVIDE AD ADDITIONAL 768KCALS (1380TOTAL KCALS ; 28KCALS/KG) DISCUSSED WITH PHARM; REPLETE LYTES NEEDED
--- NOTE | 2021-10-01 11:48 | PC.NURSE ---
MD Sanchez aware of pt refusing medications and blood work. Order received for psych evaluation. Pending screening. [facility] RN will continue to monitor.
--- NOTE | 2021-10-01 12:58 | P.CNPS_ITS ---
History of Present Illness Date of Service: 10/01/21 Chief Complaint: tonic-clonic movements Reason for Consult: capacity evaluation Requesting physician: Marlyn Sanchez Discussed with referring provider: Yes Sources of Information: patient interviewed and chart reviewed HPI Narrative: Patient is a 41-year-old female past medical history of Downs syndrome with mild intellectual disability, lives at a senior care. Presented to this facility with tonic-clonic movements for several seconds per EMS report. She has since been admitted and is being treated for esophageal perforation, hypokalemia, hypotension. Per chart, patient does not receive any prescribed medications at home. Psychiatry service was asked to meet with patient for capacity evaluation. Patient has had 2 ED visits to [facility] in June 2021 and August 2021 for syncopal episodes. No tonic clonic movements were noted at that time. remote encoding operations supervisor was contacted and was unable to provide a history regarding postictal phase or incontinence. He also reported that staff said she had decreased her p.o. intake over the past week. Noted in chart today, she has been refusing medications since last night. I evaluated the patient this afternoon, she was dressed in hospital garb, resting in bed. She appeared younger than stated age. She was shy upon approach, pulling covers up over her nose. At first she was hesitant to speak with this policy writer sales, and then she began to speak more as she felt more comfortable. Speech was slow, soft. Upon interview she reports ?I just want to talk to my DMR worker ?. She repeated this request several times during interview. She was unable to state the name of her worker. She also stated multiple times ?I want to go home ?. She is alert and oriented to person and place, but not to situation. She presents with memory impairment, and lack of understanding of why she is here. When asked if she understood her medical condition or treatment, she stated I don't want to tell you about it . When asked if she understood why she needs to receive treatment, she stated ?I am tired?. When pressed further, she stated ?I am forgetful ?. She did not appear to be responding to internal stimuli in any way, and appears safe. When asked if she felt safe, she nodded yes. During encounter, she stated multiple times that she wants to go home, and asked repeatedly where several people were, including Carol, Lisa, and Logan. When asked who these people were, she stated she was not sure. Past Psychiatric History: Lives in senior care. Chart notes history of mood disorder, psychotic disorder. No other data available. Has DMR (DDS) worker, Ren Guillermo [phone]. Medical Evaluation Reviewed: Yes Personal & Social History: Lives in senior care. Has mother, sister, both had been contacted by [facility] during this admission. Review of Systems Review of Systems Patient denies any symptoms, but unable to obtain a full ROS. Yes Unobtainable due to mental status [facility] Medical History Down's syndrome Mood disorder Psychotic disorder Family History: Has a mother, sister. No other information available. Social History: Lives in a senior care. Substance History: Unknown. Trauma History: Unknown. Diagnostics Vital Signs (24Hr): Vital Signs - 24 hr 09/30/21 14:19 09/30/21 19:38 09/30/21 23:32 Temperature 97.7 F Pulse Rate 74 75 81 Respiratory Rate 14 12 12 Blood Pressure 95/52 L 104/57 L 115/61 Pulse Oximetry 99 99 100 10/01/21 03:07 10/01/21 06:24 10/01/21 11:09 Temperature 99.2 F Pulse Rate 80 88 99 Respiratory Rate 15 12 13 Blood Pressure 125/61 102/48 L 119/53 L Pulse Oximetry 98 100 99 BMI result Body Mass Index 21.5 Labs Results: 09/30/21 08:21 09/30/21 08:21 Labs: Laboratory Results - last 48 hr 09/30/21 09/30/21 09/30/21 04:45 08:21 08:21 WBC 3.3 L RBC 3.99 L Hgb 13.1 Hct 37.2 MCV 93.2 MCH 32.8 MCHC 35.2 H RDW 13.3 Plt Count 189 MPV 9.5 Immature Gran % (Auto) 0.6 H Neut % (Auto) 57.4 Lymph % (Auto) 26.3 Zavala % (Auto) 10.3 Eos % (Auto) 3.3 Baso % (Auto) 2.1 H Lymph # (Auto) 0.9 L Zavala # (Auto) 0.3 Eos # (Auto) 0.1 Baso # (Auto) 0.1 Abs Immat Gran (auto) 0.02 Absolute Neuts (auto) 1.9 L Absolute Nucleated RBC 0.000 Nucleated RBC % (auto) 0.0 Sodium 139 Potassium 3.1 L Chloride 102 Carbon Dioxide 31 H Anion Gap 9 L BUN 3 L Creatinine 0.64 Estim Creat Clear Calc 81.3 Estimated GFR > 60 Random Glucose 107 Calcium 8.1 L D Phosphorus 2.8 Magnesium 2.2 Vancomycin Trough 10.3 Imaging Radiology Impressions: ITS Impressions Head CT 09/27/21 16:52 IMPRESSION: No acute intracranial abnormalities. Abdomen/Pelvis CT 09/27/21 21:56 IMPRESSION: 1. Pneumomediastinum, partially seen at the superior margin of the study. No intraperitoneal source identified. 2. Markedly distended bladder with mild associated bilateral hydroureteronephrosis. This critical result was discussed by telephone with Dr. Reno on 09/27/2021 at 10:[address] 09/27/21 22:54 IMPRESSION: Extensive pneumomediastinum extending into the neck and right greater than left axilla as subcutaneous emphysema. The etiology is uncertain. The prior study had a history of decreased appetite. Was the patient retching to suggest Boerhaave's syndrome? Fleischner guidelines were followed. Chest CT 09/28/21 16:29 IMPRESSION: Extensive pneumomediastinum and subcutaneous emphysema in the anterior neck and the right axilla. There is a trickle of gas and oral contrast to the midesophagus just below the delfino suspicious for likely site for esophageal tear or rupture. Results were conveyed by phone to Dr. Arreaga at 5:02 PM Chest X-Ray 09/29/21 08:13 IMPRESSION: Pneumomediastinum and right chest wall subcutaneous emphysema decreased from previous CT scans. Mental Status Exam Mental Status Exam Narrative: Well-developed, well-nourished female, in NAD. Dressed in hospital garb, appropriate grooming. Appears less than stated age. Alert and oriented x2. No involuntary movements noted, motor activity calm. No tics or tremors noted. Ambulation not observed. Patient Appearance: Appropriate Patient Orientation: Person and Place Level of Consciousness: Awake and Alert Patient Behavior: Cooperative, Passive and Poor Eye Contact Mood Description: Appropriate and Anxious Affect Description: Appropriate, Fearful, Anxious and Blunted Patient Cognition Impaired: Yes Ability to Follow Directions: Fair Speech Pattern: Clear, Impoverished, Coherent, Soft-Spoken and Mumbled (mumbled at times, but able to understand) Memory Description: Immediate Impaired and Recent Impaired Hallucinations: None Delusions: Not Present Thought Process: Disoriented Thought Content: positive for Ripley, positive for Poverty of Content and positive for Tangential Judgement: Poor Medications Medications Current Medications Fluconazole 100 mg/ IV (Miscellaneous Supplies) 50 mls @ 50 mls/hr IV Q24H [facility] Last Infusion: 09/30/21 22:49 Dose: Infused Documented by: Piperacillin Sod/Tazobactam (Sod 3.375 gm/ Sodium Chloride) 50 mls @ 100 mls/hr IV Q6H [facility] Last Admin: 10/01/21 04:26 Dose: Not Given Documented by: Multivitamins 17 ml/ Trace Metals 1.7 ml/ Amino Acids/Electrolytes/Dextrose 1,200 mls @ 50 mls/hr IV DAILY@1800 [facility] Stop: 10/01/21 17:59 Last Admin: 09/30/21 22:48 Dose: 50 mls/hr Documented by: Vancomycin HCl 750 mg/ Sodium (Chloride) 265 mls @ 265 mls/hr IV Q12H [facility] Last Admin: 10/01/21 08:35 Dose: Not Given Documented by: Multivitamins 17 ml/ Trace Metals 1.7 ml/ Amino Acids/Electrolytes/Dextrose 1,200 mls @ 50 mls/hr IV DAILY@1800 [facility] Stop: 10/02/21 17:59 Fat Emulsion Intravenous (Intralipid) 192 mls @ 16 mls/hr IVCONT BID@0600,1800 [facility] Stop: 10/02/21 17:59 Lorazepam (Lorazepam 2 Mg/Ml Vial) 0.25 mg IVPUSH Q8H PRN PRN Reason: agitation Allergies Allergies Allergy/AdvReac Type Severity Reaction Status Date / Time Seasonal Allergies Allergy Unknown Verified 09/28/21 08:45 Assessment & Plan Assessment & Plan (1) Encounter for assessment of decision-making capacity: Status: Acute Code(s): Z01.89 - Encounter for other specified special examinations Assessment and Plan: At this moment, patient does not have the capacity to participate in medical decision making. She is unable to take in information regarding her medical condition, as well as process it in a meaningful way, and make any type of info rmed decisions. Case management has been contacted regarding need to reach out to healthcare proxy. Case Management also asked to help locate the DMR (DDS) worker, and notify them that patient has asked to speak with them multiple times today. Assessment and Plan: Please note: 1. Patient may not leave AMA. 2. Healthcare Proxy should be invoked at this time. This has been shared with medical provider, Dr. Marlyn Sanchez, via secure electronic messaging system. Thank you for this consultation. I spent minutes with the patient and/or on the patient floor today, greater than?50% of which was spent counseling/coordinating care.
--- NOTE | 2021-10-01 13:36 | MHC.CM.PN ---
PATIENT'S DDS WORKER IS DC WOODWARD @ [phone] CASE MANAGEMENT AWAITING COPY OF HCP AND WILL UPLOAD
--- NOTE | 2021-10-01 13:48 | PM.PNTS ---
Subjective Subjective Date of Service: 10/01/21 Patient reports: no new complaints Interval history: Patient seen and examined this afternoon. Did not want to speak with this justowriter operator or answer any questions. Spoke with nursing re: her current status. Nursing reports that patient has been refusing antibiotics and blood draws. Still NPO and receiving TPN as ordered. May require mechanical and chemical restraints if she does not have the capacity to make her own decisions per nursing. No psych eval at time of my exam. Physical Exam Vital Signs: Vital Signs: Last Vital Signs Temp 99.2 F 10/01/21 11:09 Pulse 99 10/01/21 11:09 Resp 13 10/01/21 11:09 BP 119/53 L 10/01/21 11:09 Pulse Ox 99 10/01/21 11:09 BMI result Body Mass Index 21.5 Const: General: healthy appearing, comfortable and no acute distress Nutritional Appearance: well nourished Orientation/consciousness: Other orientation findings (unable to determine. Patient would not answer questions) Limitations: no limitations HENMT: Head: Yes normal to inspection, Yes normocephalic and Yes atraumatic Mouth: other (Dry chapped lips and mucous membranes) Eyes: Visual Goodrich: normal visual goodrich by confrontation Alignment and Position: alignment normal Periorbital: periorbital findings normal Conjunctivae: conjunctivae normal Sclerae: sclerae normal Pupils: Equal, round and reactive pupils present EOM: EOMs intact bilaterally Neck: Neck: Yes normal visual inspection, Yes full ROM, Yes no lymphadenopathy, Yes trachea midline, Yes supple, No lymphadenopathy, No tender and No tracheal deviation Lymphatic: no lymphadenopathy noted Chest: Chest palpation & inspection: normal inspection of the chest and no crepitus Resp: Effort & Inspection: normal respiratory effort, normal respiratory pattern, no audible wheezes, no cough, no pursed lip breathing, no respiratory distress, no stridor, not tachypneic and no tracheal deviation Auscultation: clear to auscultation bilaterally Cardio: Jugular venous distension: no JVD Palpation: normal PMI Rate: regular rate Rhythm: regular rhythm Heart sounds: S1 normal heart sound present, S2 normal heart sound present, no click, no gallops, no murmurs and no rubs GI: Inspection: Yes normal to inspection Auscultation: normal bowel sounds : General: Yes no CVA tenderness Back/Spine/Pelvis: Back: no CVA tenderness Thoracic/Lumbar Spine: thoracic and lumbar spine normal to inspection Skin: General skin exam: no rashes or lesions noted and dry skin Lesions: no lesions Rashes: no rashes Neuro: General: gait normal Cranial nerves: Yes Equal, round and reactive pupils present Extrem: General: Yes normal to inspection, Yes full ROM, Yes capillary refill normal, Yes no clubbing, cyanosis or edema, Yes no pedal edema and Yes normal gait Psych: Appearance: grossly normal and well kempt Mental Status: mental status grossly normal Speech and movement: Normal speech and movement present and Clear speech present Affect: normal affect Attitude: cooperative Thought process: Normal thought process present Thought content: Normal thought content present Procedures Date of Service Date of Service: 10/01/21 Progress Note: A&P Assessment and plan (1) Pneumomediastinum: Status: Acute Assessment and Plan: Patient is a 41 year old female with Down Syndrome presenting to the hospital from her [facility] after tonic-clonic movements concerning for seizure.? During workup she was found to have pneumomediastinum and evidence of small esophageal perforation.? Unknown cause as patient denies any recent retching, vomiting, or dysphasia although she is a poor historian. Patient continues to remain hemodynamically stable with a non-toxic appearance.? Patient reportedly has been refusing her antibiotics and blood draws. Unable to assess white count today due to refusal of care. Afebrile In order to determine competency, I am recommending a psych consultation. This will help guide further treatment as we will need to know if the patient is competent to make medical decisions and refuse care. At this time, re: her pneumomediastinum and possible esophageal perforation we are recommending continuing conservative management. Patient will need to be strictly NPO (no PO meds, no sips, no ice chips) for 7 days. Today is day 3. ? At that time we will likely need a repeat barium swallow/CT to evaluate the leak prior to initiating any liquid diet. Continue with? TPN for nutritional support during this time. Continue with broad spectrum antibiotics: Vanco, Zosyn, Diflucan. Monitor patient closely for any s/sx worsening infection/sepsis. Trend WBC and temp. Case discussed with Dr. Jackson. Thank you for this consult. We will continue to follow along. If patient's clinical condition deteriorates, please contact Thoracic Surgery immediately. Fall Risk Details Current Medications: Current Medications Fluconazole 100 mg/ IV (Miscellaneous Supplies) 50 mls @ 50 mls/hr IV Q24H [facility] Last Infusion: 09/30/21 22:49 Dose: Infused Documented by: Piperacillin Sod/Tazobactam (Sod 3.375 gm/ Sodium Chloride) 50 mls @ 100 mls/hr IV Q6H [facility] Last Admin: 10/01/21 11:00 Dose: Not Given Documented by: Multivitamins 17 ml/ Trace Metals 1.7 ml/ Amino Acids/Electrolytes/Dextrose 1,200 mls @ 50 mls/hr IV DAILY@1800 [facility] Stop: 10/01/21 17:59 Last Admin: 09/30/21 22:48 Dose: 50 mls/hr Documented by: Vancomycin HCl 750 mg/ Sodium (Chloride) 265 mls @ 265 mls/hr IV Q12H [facility] Last Admin: 10/01/21 08:35 Dose: Not Given Documented by: Multivitamins 17 ml/ Trace Metals 1.7 ml/ Amino Acids/Electrolytes/Dextrose 1,200 mls @ 50 mls/hr IV DAILY@1800 [facility] Stop: 10/02/21 17:59 Fat Emulsion Intravenous (Intralipid) 192 mls @ 16 mls/hr IVCONT BID@0600,1800 [facility] Stop: 10/02/21 17:59 Lorazepam (Lorazepam 2 Mg/Ml Vial) 0.25 mg IVPUSH Q8H PRN PRN Reason: agitation Time Spent With Patient Time: Total time spent is greater than 50% in coordination of care (as documented) at patient's floor/unit and/or counseling patient: Time with patient: less than 15 minutes Quality Stroke Does the patient have a stroke diagnosis?: No VTE Prior VTE?: No VTE Risk Level:: Medical - moderate - high VTE Device Contraindication: Treatment Not Indicated VTE Drug Contraindication: N/A - Med Ordered
[2021-10-01 14:07] VITALS: BP 92/42; PULSE 100; RESP 16; O2SAT 100
--- NOTE | 2021-10-01 15:17 | P.PNIM_ITS ---
Subjective Subjective Date of Service: 10/01/21 Interval History: Patient resting comfortably, says she is feeling fine, refusing to answer any more questions. Review of Systems Unable to obtain detail ros since patient has Down syndrome and not cooperative with poor insight. Physical Exam Vital Signs: Vital Signs: Last Vital Signs Temp 99.2 F 10/01/21 11:09 Pulse 100 10/01/21 14:07 Resp 16 10/01/21 14:07 BP 92/42 L 10/01/21 14:07 Pulse Ox 100 10/01/21 14:07 BMI result Body Mass Index 21.5 Gen:? Awake alert, no acute distress, typical features of trisomy-21 Neck: supple Lungs: clear to auscultation bilaterally Heart: regular rate and rhythm, no murmurs Abd: soft, non-tender, non-distended Ext: no edema Skin: warm/well-perfused,no subcutaneous emphysema palpable Neuro:? Awake, alert, in no distress Psych: impaired insight Objective Data Active Medications Fluconazole 100 mg/ IV (Miscellaneous Supplies) 50 mls @ 50 mls/hr IV Q24H [facility] Last Infusion: 09/30/21 22:49 Dose: 0 mls/hr Documented by: RAYMOND Piperacillin Sod/Tazobactam (Sod 3.375 gm/ Sodium Chloride) 50 mls @ 100 mls/hr IV Q6H [facility] Last Admin: 10/01/21 11:00 Dose: Not Given Documented by: LILY Non-Admin Reason: Patient Refused Multivitamins 17 ml/ Trace Metals 1.7 ml/ Amino Acids/Electrolytes/Dextrose 1,200 mls @ 50 mls/hr IV DAILY@1800 [facility] Stop: 10/01/21 17:59 Last Admin: 09/30/21 22:48 Dose: 50 mls/hr Documented by: RAYMOND Vancomycin HCl 750 mg/ Sodium (Chloride) 265 mls @ 265 mls/hr IV Q12H [facility] Last Admin: 10/01/21 08:35 Dose: Not Given Documented by: LILY Non-Admin Reason: Patient Refused Multivitamins 17 ml/ Trace Metals 1.7 ml/ Amino Acids/Electrolytes/Dextrose 1,200 mls @ 50 mls/hr IV DAILY@1800 [facility] Stop: 10/02/21 17:59 Fat Emulsion Intravenous (Intralipid) 192 mls @ 16 mls/hr IVCONT BID@0600,1800 [facility] Stop: 10/02/21 17:59 Lorazepam (Lorazepam 2 Mg/Ml Vial) 0.25 mg IVPUSH Q8H PRN PRN Reason: agitation Labs CBC & Chem 7: 09/30/21 08:21 09/30/21 08:21 Microbiology Microbiology Results: Microbiology 09/28/21 11:15 Blood Culture - Preliminary Blood - Venous Prelim: GPR Gram Stain only 09/28/21 10:50 Blood Culture - Preliminary Blood - Venous No growth after 48 hours. Assessment and Plan (1) Esophageal perforation: Status: Acute (2) Pneumomediastinum: Status: Acute (3) Hypokalemia: Status: Acute (4) Hypotension: Status: Acute Assessment and Plan: 41yo F correction 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, no other medical problems, sent in for reported tonic-clonic movements though no seizure history [but 2 visits to [facility] ED in last 3 mo for syncope] admitted for hypotension,found to have extensive pneumomediastinum with evidence of esophageal perforation # esophageal perforation/ pneumomediastinum ? patient asymptomatic denies chest pain, no shortness of breath, no overnight fever chills, remains hemodynamically stable ? Patient is refusing IV antibiotics and blood draws, therefore competency eval obtain and patient has been deemed incompetent, therefore will invoke healthcare proxy, called and left message to patient DDS provider Case discussed with case resource manager, tried calling patient's mother healthcare proxy her number is not in service Continue strict NPO Continue IV vancomycin, IV Zosyn, and IV fluconazole day 3 Continue PPN and transitioned to TPN once midline placed ? Unable to place midline due to 1/2? blood culture growing Gram-positive rods follow CBC and electrolytes closely. Plan is to repeat CT chest and barium swallow after 4 days to reassess esophageal leak, being followed closely by thoracic surgeon. ? # undifferentiated hypotension - not septic but covering ABX as above.? Hypotension resolved # hypoK - repleted # possible seizure activity - no recurrent seizures noted, continue seizure precautions, EEG pending seen by psych, patient found to have no decision-making capacity, therefore will invoke healthcare proxy, patient has a DDS provider Ren Mendez [phone] called and left message, Called mother healthcare proxy [phone] the number is not in service, spoke with patient's sister came [phone] and updated her regarding patient clinical status # VTE ppx - SCDs, Quality Stroke Does the patient have a stroke diagnosis?: No VTE Prior VTE?: No VTE Risk Level:: Medical - moderate - high VTE Device Contraindication: Treatment Not Indicated VTE Drug Contraindication: N/A - Med Ordered
--- NOTE | 2021-10-01 15:49 | PC.NURSE ---
Discuss plan of care with MD Sanchez. aware of psych consultation with pt, and pt deemed unable to make medical decisions on her own. has been trying to contact pt's mother who does not answer. However, pt sister Ruth called nursing station and stated her mother would like all information regarding pt to be referred through the sister --- although mother is initial health care proxy legally. Again aware. states that pending call back from pt's DDS (Department of Developmental Services) passenger service representative in order to know how to process medically. Further orders will be received sometime tomorrow. At this time, as per , pt will not be undergoing surgery but will remain NPO for the next 4 out of total 7 days. TPN remains running through peripheral IV. No mid line placed as pt's blood cultures are positive. Regardless, pt continues to refuse mid line placement. Pt continues to refuse IV ABT medications. RN will continue to attempt to education pt, and try to administer them.
[2021-10-01 19:43] VITALS: BP 114/63; PULSE 92; RESP 16; O2SAT 98
--- NOTE | 2021-10-01 21:16 | PC.NURSE ---
pt still has TPN running through hand IV. pt adamantly refusing abx as well as additional IV nutrition. pt resting comfortably in bed in supine position. respirations even and unlabored. peripheral IV in hand still intact, no redness or infiltration noted. skin pwd. no distress noted at this time. hospitalist notified that pt still refusing treatment.
[2021-10-02] VITALS (7 sets, daily range): BP systolic 94–117; BP diastolic 54–69; PULSE 68–98; RESP 13–16; TEMP 36.4–37; O2SAT 97–100
--- NOTE | 2021-10-02 06:42 | PC.NURSE ---
800ml emptied from castellano bag
--- NOTE | 2021-10-02 09:54 | MHC.CM.PN ---
THIS MARKETING OUTREACH COORDINATOR SPOKE WITH DDS TISSUE SPECIALIST DC WOODWARD ([phone]) DC STATES THAT BECAUSE PATIENT HAS A HCP, HE DOES NOT NEED TO BE INVOLVED IN MEDICAL DECISIONS. WHEN ASKED FOR CLARIFICATION ON WHEN DC WOULD BE INVOLVED, HE IS UNABLE TO ANSWER. HE IS GOING TO REACH OUT TO DDS RNELLIOTT AND HAVE A CONVERSATION WITH THIS MARKETING OUTREACH COORDINATOR AND ELLIOTT TO DISCUSS. DC STATES THAT HCP HAS MORE INFLUENCE OVER THE PATIENT CARE THAN DDS OR A GUARDIAN. CONVERSATION CONVERSATION CONFIRMED WITH ANGEL GALLAGHER SALES SUPPORT COORDINATOR WHO CALLED THIS MARKETING OUTREACH COORDINATOR
--- NOTE | 2021-10-02 10:23 | MHC.CLN ---
F/U PT CONTINUES TO REFUSED TREATMENT I.E. LABS, IV ABT PSYCH DEEMED PT INCOMPETENT AND UNABLE TO MAKE DECISIONS MD TO COORDINATE WITH HCP REGARDING MEDICAL PLAN AND DECISION MAKING RECOMMEND CONTINUE PPN D10AA4.25 AT 50ML/HR WITH 16ML OF 20% LIPIDS TO PROVIDE 1380 TOTAL KCALS (28KCALS/KG), 51G PROTEIN (1.0G/KG) DISCUSSED WITH PHARM; REPLETE LYTES NEEDED FOLLOWING WITH TEAM
[2021-10-02] MEDS: LORazepam 2 MG/ML VIAL 0.5 MG IVPUSH (10:43)
[2021-10-02] MEDS: hydrOXYzine HCL 50 MG/ML VIAL 25 MG IM (10:47)
[2021-10-02] MEDS: Haloperidol Lactate 5 MG/ML VIAL 1 MG IM (11:17)
--- NOTE | 2021-10-02 15:33 | P.CONAN_ITS ---
[facility] Active Problems Active Problems: All Active Problems (Updated 10/01/21 @ 14:45 by Margaret ko) Encounter for assessment of decision-making capacity (Acute) Esophageal perforation (Acute) LOC (loss of consciousness) (Acute) Pneumomediastinum (Acute) Hypokalemia (Acute) Hypotension (Acute) Past Medical History Medical History Down's syndrome Mood disorder Psychotic disorder Functional capacity: independent ambulation Patient : No Family History Family history of problems with anesthesia: No Surgical History History of Problems with Anesthesia: No Social History Social History Alcohol intake: never Patient Tobacco Use Status: Never used Tobacco Use of substances other than those prescribed or required for medical reasons: Yes Advance Directives: No Advance Directives Information Provided: No Patient : No service: No Current occupational status: disabled Meds Allergies Allergy/AdvReac Type Severity Reaction Status Date / Time Seasonal Allergies Allergy Unknown Verified 09/28/21 08:45 Active Medications: Current Medications Fluconazole 100 mg/ IV (Miscellaneous Supplies) 50 mls @ 50 mls/hr IV Q24H [facility] Last Admin: 10/01/21 18:40 Dose: Not Given Documented by: Piperacillin Sod/Tazobactam (Sod 3.375 gm/ Sodium Chloride) 50 mls @ 100 mls/hr IV Q6H [facility] Last Admin: 10/02/21 12:37 Dose: Not Given Documented by: Vancomycin HCl 750 mg/ Sodium (Chloride) 265 mls @ 265 mls/hr IV Q12H [facility] Last Admin: 10/02/21 12:04 Dose: Not Given Documented by: Multivitamins 17 ml/ Trace Metals 1.7 ml/ Amino Acids/Electrolytes/Dextrose 1,200 mls @ 50 mls/hr IV DAILY@1800 [facility] Stop: 10/02/21 17:59 Last Admin: 10/02/21 09:10 Dose: 50 mls/hr Documented by: Fat Emulsion Intravenous (Intralipid) 192 mls @ 16 mls/hr IVCONT BID@0600,1800 [facility] Stop: 10/02/21 17:59 Multivitamins 17 ml/ Trace Metals 1.7 ml/ Amino Acids/Electrolytes/Dextrose 1,200 mls @ 50 mls/hr IV DAILY@1800 [facility] Stop: 10/03/21 17:59 Fat Emulsion Intravenous (Intralipid) 192 mls @ 16 mls/hr IVCONT BID@0600,1800 [facility] Stop: 10/03/21 17:59 Lorazepam (Lorazepam 2 Mg/Ml Vial) 0.25 mg IVPUSH Q8H PRN PRN Reason: agitation Home Medications Medication Instructions Recorded Confirmed Last Taken Type acetaminophen 325 mg tablet 650 mg PO Q4H PRN 09/28/21 09/28/21 Unknown History chlorhexidine gluconate 0.12 % 15 ml BUCCAL BID 09/28/21 09/28/21 Unknown History mouthwash (Peridex) Exam Exam Date and Time: October 02, 2021 153 Height,Weight and Vital Signs: Height 5 ft Weight 50 kg Last Vital Signs Temp 97.5 F 10/02/21 01:18 Pulse 85 10/02/21 04:00 Resp 16 10/02/21 04:00 BP 110/64 10/02/21 04:00 Pulse Ox 98 10/02/21 04:00 Pertinent Lab Results Pertinent Lab Results: Laboratory Tests 09/27/21 09/27/21 09/27/21 16:16 16:16 16:37 WBC 5.2 RBC 4.59 Hgb 15.2 Hct 43.1 MCV 93.9 MCH 33.1 H MCHC 35.3 H RDW 13.9 Plt Count 288 MPV 9.5 Immature Gran % (Auto) 0.6 H Neut % (Auto) 76.8 H Lymph % (Auto) 12.3 L [place] % (Auto) 7.3 Eos % (Auto) 1.5 Baso % (Auto) 1.5 Lymph # (Auto) 0.6 L [place] # (Auto) 0.4 Eos # (Auto) 0.1 Baso # (Auto) 0.1 Abs Immat Gran (auto) 0.03 Absolute Neuts (auto) 4.0 Absolute Nucleated RBC 0.000 Nucleated RBC % (auto) 0.0 PT INR APTT Sodium 141 Potassium 2.9 L Chloride 102 Carbon Dioxide 26 Anion Gap 16 BUN 13 Creatinine 1.01 Estim Creat Clear Calc 51.5 Estimated GFR 60 POC Glucose Random Glucose 156 H Fasting Glucose Lactic Acid Calcium 9.1 Phosphorus Magnesium 2.1 Total Bilirubin 0.7 AST 17 ALT 9 Alkaline Phosphatase 72 C-Reactive Protein Total Protein 7.4 Albumin 3.8 Triglycerides Procalcitonin TSH Free T4 Random Cortisol Urine Color Urine Appearance Urine pH Ur Specific [place] Urine Protein Urine Glucose (UA) Urine Ketones Urine Blood Urine Nitrite Ur Leukocyte Esterase Urine RBC Urine WBC Ur Squamous Epith Cells Urine Bacteria Vancomycin Trough Respiratory Panel Chin Adenovirus (Rapid PCR) B.pert (TEM-PCR) B.parapertussis DNA PCR C. pneumoniae DNA (PCR) Coronavirus OC43 (PCR) Coronavirus HKU1 (PCR) Coronavirus 229E (PCR) COVID-19 (PRIYA) Negative COVID-19 Clin Com See Note Coronavirus NL63 (PCR) Human Metapneumovir PCR Influenza A (RT-PCR) Influenza B (RT-PCR) M. pneumoniae (PCR) Parainfluenza 1 (PCR) Parainfluenza 2 (PCR) Parainfluenza 3 (PCR) Parainfluenza 4 (PCR) RSV (PCR) Entero/Rhino (PCR) SARS-CoV-2 RNA (RT-PCR) 09/28/21 09/28/21 09/28/21 11:15 11:15 11:15 WBC 3.3 L RBC 4.10 L Hgb 13.2 Hct 39.3 MCV 95.9 MCH 32.2 MCHC 33.6 RDW 13.9 Plt Count 243 MPV 9.7 Immature Gran % (Auto) Neut % (Auto) Lymph % (Auto) [place] % (Auto) Eos % (Auto) Baso % (Auto) Lymph # (Auto) [place] # (Auto) Eos # (Auto) Baso # (Auto) Abs Immat Gran (auto) Absolute Neuts (auto) Absolute Nucleated RBC 0.000 Nucleated RBC % (auto) 0.0 PT INR APTT Sodium 141 Potassium 3.3 Chloride 108 Carbon Dioxide 25 Anion Gap 11 L BUN 5 L D Creatinine 0.66 Estim Creat Clear Calc 78.9 Estimated GFR > 60 POC Glucose Random Glucose Fasting Glucose 86 Lactic Acid 1.7 Calcium 8.0 L D Phosphorus Magnesium 1.6 Total Bilirubin AST ALT Alkaline Phosphatase C-Reactive Protein Total Protein Albumin Triglycerides Procalcitonin TSH Free T4 Random Cortisol Urine Color Urine Appearance Urine pH Ur Specific [place] Urine Protein Urine Glucose (UA) Urine Ketones Urine Blood Urine Nitrite Ur Leukocyte Esterase Urine RBC Urine WBC Ur Squamous Epith Cells Urine Bacteria Vancomycin Trough Respiratory Panel [place] Adenovirus (Rapid PCR) B.pert (TEM-PCR) B.parapertussis DNA PCR C. pneumoniae DNA (PCR) Coronavirus OC43 (PCR) Coronavirus HKU1 (PCR) Coronavirus 229E (PCR) COVID-19 ([facility]IYA) COVID-19 Clin Com Coronavirus NL63 (PCR) Human Metapneumovir PCR Influenza A (RT-PCR) Influenza B (RT-PCR) M. pneumoniae (PCR) Parainfluenza 1 (PCR) Parainfluenza 2 (PCR) Parainfluenza 3 (PCR) Parainfluenza 4 (PCR) RSV (PCR) Entero/Rhino (PCR) SARS-CoV-2 RNA (RT-PCR) 09/28/21 09/28/21 09/28/21 11:15 11:15 11:15 WBC RBC Hgb Hct MCV MCH MCHC RDW Plt Count MPV Immature Gran % (Auto) Neut % (Auto) Lymph % (Auto) [place] % (Auto) Eos % (Auto) Baso % (Auto) Lymph # (Auto) [place] # (Auto) Eos # (Auto) Baso # (Auto) Abs Immat Gran (auto) Absolute Neuts (auto) Absolute Nucleated RBC Nucleated RBC % (auto) PT INR APTT Sodium Potassium Chloride Carbon Dioxide Anion Gap BUN Creatinine Estim Creat Clear Calc Estimated GFR POC Glucose Random Glucose Fasting Glucose Lactic Acid Calcium Phosphorus Magnesium Total Bilirubin AST ALT Alkaline Phosphatase C-Reactive Protein 0.58 H Total Protein Albumin Triglycerides Procalcitonin < 0.02 TSH 4.28 H Free T4 0.95 Random Cortisol 13.8 Urine Color Urine Appearance Urine pH Ur Specific [place] Urine Protein Urine Glucose (UA) Urine Ketones Urine Blood Urine Nitrite Ur Leukocyte Esterase Urine RBC Urine WBC Ur Squamous Epith Cells Urine Bacteria Vancomycin Trough Respiratory Panel [place] Adenovirus (Rapid PCR) B.pert (TEM-PCR) B.parapertussis DNA PCR C. pneumoniae DNA (PCR) Coronavirus OC43 (PCR) Coronavirus HKU1 (PCR) Coronavirus 229E (PCR) COVID-19 ([facility]IYA) COVID-19 Clin Com Coronavirus NL63 (PCR) Human Metapneumovir PCR Influenza A (RT-PCR) Influenza B (RT-PCR) M. pneumoniae (PCR) Parainfluenza 1 (PCR) Parainfluenza 2 (PCR) Parainfluenza 3 (PCR) Parainfluenza 4 (PCR) RSV (PCR) Entero/Rhino (PCR) SARS-CoV-2 RNA (RT-PCR) 09/28/21 09/28/21 09/29/21 11:24 15:40 06:55 WBC 3.2 L RBC 3.40 L Hgb 11.2 L Hct 32.4 L MCV 95.3 MCH 32.9 MCHC 34.6 RDW 13.7 Plt Count 193 MPV 9.6 Immature Gran % (Auto) Neut % (Auto) Lymph % (Auto) [place] % (Auto) Eos % (Auto) Baso % (Auto) Lymph # (Auto) [place] # (Auto) Eos # (Auto) Baso # (Auto) Abs Immat Gran (auto) Absolute Neuts (auto) Absolute Nucleated RBC 0.000 Nucleated RBC % (auto) 0.0 PT INR APTT Sodium Potassium Chloride Carbon Dioxide Anion Gap BUN Creatinine Estim Creat Clear Calc Estimated GFR POC Glucose 75 Random Glucose Fasting Glucose Lactic Acid Calcium Phosphorus Magnesium Total Bilirubin AST ALT Alkaline Phosphatase C-Reactive Protein Total Protein Albumin Triglycerides Procalcitonin TSH Free T4 Random Cortisol Urine Color YELLOW Urine Appearance CLEAR Urine pH 6.0 Ur Specific [place] 1.020 Urine Protein NEG Urine Glucose (UA) NEG Urine Ketones 5 Urine Blood TRACE Urine Nitrite NEG Ur Leukocyte Esterase NEG Urine RBC 0-2 Urine WBC 0 Ur Squamous Epith Cells TRACE Urine Bacteria NONE Vancomycin Trough Respiratory Panel [place] Adenovirus (Rapid PCR) B.pert (TEM-PCR) B.parapertussis DNA PCR C. pneumoniae DNA (PCR) Coronavirus OC43 (PCR) Coronavirus HKU1 (PCR) Coronavirus 229E (PCR) COVID-19 ([facility]) COVID-19 Clin Com Coronavirus NL63 (PCR) Human Metapneumovir PCR Influenza A (RT-PCR) Influenza B (RT-PCR) M. pneumoniae (PCR) Parainfluenza 1 (PCR) Parainfluenza 2 (PCR) Parainfluenza 3 (PCR) Parainfluenza 4 (PCR) RSV (PCR) Entero/Rhino (PCR) SARS-CoV-2 RNA (RT-PCR) 09/29/21 09/29/21 09/29/21 06:55 06:55 08:03 WBC RBC Hgb Hct MCV MCH MCHC RDW Plt Count MPV Immature Gran % (Auto) Neut % (Auto) Lymph % (Auto) [place] % (Auto) Eos % (Auto) Baso % (Auto) Lymph # (Auto) [place] # (Auto) Eos # (Auto) Baso # (Auto) Abs Immat Gran (auto) Absolute Neuts (auto) Absolute Nucleated RBC Nucleated RBC % (auto) PT 12.7 INR 1.1 APTT 36.6 Sodium 140 Potassium 2.8 L Chloride 105 Carbon Dioxide 27 Anion Gap 11 L BUN 2 L D Creatinine 0.59 Estim Creat Clear Calc 88.2 Estimated GFR > 60 POC Glucose Random Glucose 103 Fasting Glucose Lactic Acid Calcium 7.4 L D Phosphorus 2.2 L Magnesium 1.5 L Total Bilirubin AST ALT Alkaline Phosphatase C-Reactive Protein Total Protein Albumin Triglycerides 81 Procalcitonin TSH Free T4 Random Cortisol Urine Color Urine Appearance Urine pH Ur Specific [place] Urine Protein Urine Glucose (UA) Urine Ketones Urine Blood Urine Nitrite Ur Leukocyte Esterase Urine RBC Urine WBC Ur Squamous Epith Cells Urine Bacteria Vancomycin Trough Respiratory Panel [place] See Note Adenovirus (Rapid PCR) Not Detected B.pert (TEM-PCR) Not Detected B.parapertussis DNA PCR Not Detected C. pneumoniae DNA (PCR) Not Detected Coronavirus OC43 (PCR) Not Detected Coronavirus HKU1 (PCR) Not Detected Coronavirus 229E (PCR) Not Detected COVID-19 ([facility]) COVID-19 Clin Com Coronavirus NL63 (PCR) Not Detected Human Metapneumovir PCR Not Detected Influenza A (RT-PCR) Not Detected Influenza B (RT-PCR) Not Detected M. pneumoniae (PCR) Not Detected Parainfluenza 1 (PCR) Not Detected Parainfluenza 2 (PCR) Not Detected Parainfluenza 3 (PCR) Not Detected Parainfluenza 4 (PCR) Not Detected RSV (PCR) Not Detected Entero/Rhino (PCR) Not Detected SARS-CoV-2 RNA (RT-PCR) Not Detected 09/30/21 09/30/21 09/30/21 04:45 08:21 08:21 WBC 3.3 L RBC 3.99 L Hgb 13.1 Hct 37.2 MCV 93.2 MCH 32.8 MCHC 35.2 H RDW 13.3 Plt Count 189 MPV 9.5 Immature Gran % (Auto) 0.6 H Neut % (Auto) 57.4 Lymph % (Auto) 26.3 [place] % (Auto) 10.3 Eos % (Auto) 3.3 Baso % (Auto) 2.1 H Lymph # (Auto) 0.9 L [place] # (Auto) 0.3 Eos # (Auto) 0.1 Baso # (Auto) 0.1 Abs Immat Gran (auto) 0.02 Absolute Neuts (auto) 1.9 L Absolute Nucleated RBC 0.000 Nucleated RBC % (auto) 0.0 PT INR APTT Sodium 139 Potassium 3.1 L Chloride 102 Carbon Dioxide 31 H Anion Gap 9 L BUN 3 L Creatinine 0.64 Estim Creat Clear Calc 81.3 Estimated GFR > 60 POC Glucose Random Glucose 107 Fasting Glucose Lactic Acid Calcium 8.1 L D Phosphorus 2.8 Magnesium 2.2 Total Bilirubin AST ALT Alkaline Phosphatase C-Reactive Protein Total Protein Albumin Triglycerides Procalcitonin TSH Free T4 Random Cortisol Urine Color Urine Appearance Urine pH Ur Specific [place] Urine Protein Urine Glucose (UA) Urine Ketones Urine Blood Urine Nitrite Ur Leukocyte Esterase Urine RBC Urine WBC Ur Squamous Epith Cells Urine Bacteria Vancomycin Trough 10.3 Respiratory Panel [place] Adenovirus (Rapid PCR) B.pert (TEM-PCR) B.parapertussis DNA PCR C. pneumoniae DNA (PCR) Coronavirus OC43 (PCR) Coronavirus HKU1 (PCR) Coronavirus 229E (PCR) COVID-19 ([facility]) COVID-19 Clin Com Coronavirus NL63 (PCR) Human Metapneumovir PCR Influenza A (RT-PCR) Influenza B (RT-PCR) M. pneumoniae (PCR) Parainfluenza 1 (PCR) Parainfluenza 2 (PCR) Parainfluenza 3 (PCR) Parainfluenza 4 (PCR) RSV (PCR) Entero/Rhino (PCR) SARS-CoV-2 RNA (RT-PCR) Airway Mallampati Class: III TM Dist: >3cm Denture: Upper Heart: RRR Lungs: CTA Assessment and Plan Final Anesthetic Review Family History of Problems with Anesthesia: No History of Problems with Anesthesia: No ASA Class: III Final Preanesthetic Review: Anes Risks/Benef Reviewed Patient Risk: Low Procedure Risk: Low Anesthetic Plan Anesthetic Plan: MAC: Disposition: Standard PACU
--- NOTE | 2021-10-02 16:15 | P.PNTS_ITS ---
Subjective Subjective Date of Service: 10/02/21 Interval history: Patient was seen and examined this morning. This is a late entry from that examination. Patient appears to be resting comfortably. She denies any concerning symptoms such as shortness of breath, fever, chills, throat or neck pain. She continues to remain n.p.o. this is currently day 4 of her n.p.o. status. Patient did refuse antibiotics yesterday and a psych evaluation was performed and deemed patient to be incompetent to make their own healthcare decisions. Remaining review of systems unable to obtain due to patient refusing to answer questions. Physical Exam Vital Signs: Vital Signs: Last Vital Signs Temp 97.5 F 10/02/21 01:18 Pulse 85 10/02/21 04:00 Resp 16 10/02/21 04:00 BP 110/64 10/02/21 04:00 Pulse Ox 98 10/02/21 04:00 BMI result Body Mass Index 21.5 Const: General: comfortable, no acute distress and lethargic Orientation/consciousness: lethargic HENMT: Head: Yes atraumatic Eyes: Conjunctivae: conjunctivae normal Sclerae: sclerae normal Neck: Neck: Yes trachea midline, Yes supple and Yes other ( No subcutaneous emphysema noted on physical exam.) Chest: Other: Unable to appreciate any subcutaneous emphysema or crepitus along anterior, left, right or posterior chest wall Resp: Other: breath sounds are clear to auscultation bilaterally throughout all lung good[place] with no adventitious sounds such as wheezes or rhonchi. Effort & Inspection: normal respiratory effort Cardio: Jugular venous distension: no JVD Rate: regular rate GI: Inspection: Yes normal to inspection Palpation (GI): Soft to palpation and nontender Auscultation: normal bowel sounds Extrem: General: Yes normal to inspection and Yes no clubbing, cyanosis or edema Procedures Date of Service Date of Service: 10/02/21 Progress Note: A&P Assessment and plan (1) Pneumomediastinum: Status: Acute Assessment and Plan: Patient is a 41 year old female with Down Syndrome presenting to the hospital from her senior care after tonic-clonic movements concerning for seizure.? During workup she was found to have pneumomediastinum and evidence of small esophageal perforation.? Unknown cause as patient denies any recent retching, vomiting, or dysphasia although she is a poor historian. * Patient continues to remain hemodynamically stable with a non-toxic appearance.? * Patient reportedly has been refusing her antibiotics and blood draws. Unable to assess white count today due to refusal of care. Afebrile * Patient was seen by psych who deemed patient incompetent to make her own medical decisions. * She is currently in interventional radiology having a PICC placed for easier access for antibiotic administration. * At this time, re: her pneumomediastinum and possible esophageal perforation we are recommending continuing conservative management. * Patient will need to be strictly NPO (no PO meds, no sips, no ice chips) for 7 days. Today is day 4. ? At that time we will likely need a repeat barium swallow/CT to evaluate the leak prior to initiating any liquid diet. * Continue with? TPN for nutritional support during this time. * Continue with broad spectrum antibiotics: Vanco, Zosyn, Diflucan. * Monitor patient closely for any s/sx worsening infection/sepsis. * Trend WBC and temp. Case discussed with Dr. Jackson. Thank you for this consult. We will continue to follow along. If patient's clinical condition deteriorates, please contact Thoracic Surgery immediately. Fall Risk Details Current Medications: Current Medications Fluconazole 100 mg/ IV (Miscellaneous Supplies) 50 mls @ 50 mls/hr IV Q24H [facility] Last Admin: 10/01/21 18:40 Dose: Not Given Documented by: Piperacillin Sod/Tazobactam (Sod 3.375 gm/ Sodium Chloride) 50 mls @ 100 mls/hr IV Q6H [facility] Last Admin: 10/02/21 16:03 Dose: Not Given Documented by: Vancomycin HCl 750 mg/ Sodium (Chloride) 265 mls @ 265 mls/hr IV Q12H [facility] Last Admin: 10/02/21 12:04 Dose: Not Given Documented by: Multivitamins 17 ml/ Trace Metals 1.7 ml/ Amino Acids/Electrolytes/Dextrose 1,200 mls @ 50 mls/hr IV DAILY@1800 [facility] Stop: 10/02/21 17:59 Last Admin: 10/02/21 09:10 Dose: 50 mls/hr Documented by: Fat Emulsion Intravenous (Intralipid) 192 mls @ 16 mls/hr IVCONT BID@0600,1800 [facility] Stop: 10/02/21 17:59 Multivitamins 17 ml/ Trace Metals 1.7 ml/ Amino Acids/Electrolytes/Dextrose 1,200 mls @ 50 mls/hr IV DAILY@1800 [facility] Stop: 10/03/21 17:59 Fat Emulsion Intravenous (Intralipid) 192 mls @ 16 mls/hr IVCONT BID@0600,1800 [facility] Stop: 10/03/21 17:59 Lorazepam (Lorazepam 2 Mg/Ml Vial) 0.25 mg IVPUSH Q8H PRN PRN Reason: agitation Time Spent With Patient Time: Total time spent is greater than 50% in coordination of care (as documented) at patient's floor/unit and/or counseling patient: Time with patient: 15 - 24 minutes Quality Stroke Does the patient have a stroke diagnosis?: No VTE Prior VTE?: No VTE Risk Level:: Medical - moderate - high VTE Device Contraindication: Treatment Not Indicated VTE Drug Contraindication: N/A - Med Ordered
--- NOTE | 2021-10-02 17:12 | HO.PM.IMPN ---
Subjective Subjective Date of Service: 10/02/21 Interval History: Resting comfortably in bed, not communicating, keeps repeating she is feeling fine, no overnight acute issues noted, no fevers no chills no complain of pain. Review of Systems Unable to obtain review of systems since patient does not want to communicate. Physical Exam Vital Signs: Vital Signs: Last Vital Signs Temp 97.5 F 10/02/21 01:18 Pulse 85 10/02/21 04:00 Resp 16 10/02/21 04:00 BP 110/64 10/02/21 04:00 Pulse Ox 98 10/02/21 04:00 BMI result Body Mass Index 21.5 Gen:? Awake alert, no acute distress Neck: supple Lungs: clear to auscultation bilaterally Heart: regular rate and rhythm, no murmurs Abd: soft, non-tender, non-distended Ext: no edema Skin: warm/well-perfused,no subcutaneous emphysema palpable Neuro:? Awake, alert, in no distress Psych: impaired insight Objective Data Active Medications Fluconazole 100 mg/ IV (Miscellaneous Supplies) 50 mls @ 50 mls/hr IV Q24H [facility] Last Admin: 10/01/21 18:40 Dose: Not Given Documented by: LILY Non-Admin Reason: Patient Refused Piperacillin Sod/Tazobactam (Sod 3.375 gm/ Sodium Chloride) 50 mls @ 100 mls/hr IV Q6H [facility] Last Admin: 10/02/21 16:03 Dose: Not Given Documented by: HARSHAD Non-Admin Reason: Patient Refused Vancomycin HCl 750 mg/ Sodium (Chloride) 265 mls @ 265 mls/hr IV Q12H [facility] Last Admin: 10/02/21 12:04 Dose: Not Given Documented by: HARSHAD Non-Admin Reason: Patient Refused Multivitamins 17 ml/ Trace Metals 1.7 ml/ Amino Acids/Electrolytes/Dextrose 1,200 mls @ 50 mls/hr IV DAILY@1800 [facility] Stop: 10/02/21 17:59 Last Admin: 10/02/21 09:10 Dose: 50 mls/hr Documented by: FLO Fat Emulsion Intravenous (Intralipid) 192 mls @ 16 mls/hr IVCONT BID@0600,1800 [facility] Stop: 10/02/21 17:59 Multivitamins 17 ml/ Trace Metals 1.7 ml/ Amino Acids/Electrolytes/Dextrose 1,200 mls @ 50 mls/hr IV DAILY@1800 [facility] Stop: 10/03/21 17:59 Fat Emulsion Intravenous (Intralipid) 192 mls @ 16 mls/hr IVCONT BID@0600,1800 [facility] Stop: 10/03/21 17:59 Lorazepam (Lorazepam 2 Mg/Ml Vial) 0.25 mg IVPUSH Q8H PRN PRN Reason: agitation Labs CBC & Chem 7: 09/30/21 08:21 10/03/21 13:10 Microbiology Microbiology Results: Microbiology 09/28/21 11:15 Blood Culture - Preliminary Blood - Venous Prelim: GPR Gram Stain only Assessment and Plan (1) Esophageal perforation: Status: Acute (2) Pneumomediastinum: Status: Acute (3) Hypokalemia: Status: Acute (4) Hypotension: Status: Acute Assessment and Plan: 41yo F care home 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, no other medical problems, sent in for reported tonic-clonic movements though no seizure history [but 2 visits to [facility] in last 3 mo for syncope] admitted for hypotension,found to have extensive pneumomediastinum with evidence of esophageal perforation # esophageal perforation/ pneumomediastinum Patient remains uncooperative refusing medication, refused PICC line Since patient deemed incompetent by psych obtained consent from patient's mom Eddie Gupta healthcare proxy she agreed for PICC line placement and for use of chemical and physical restraint Patient given Ativan 0.5 mg IV, hydroxyzine 25 mg IM and Haldol 1 mg IM but patient remained awake and did not cooperate with PICC line placement Post chemical restraint patient was recheck within an hour her vitals remained stable with normal respiratory rate and heart rate. will attempt PICC line under anesthesia later today ? patient denies chest pain, no shortness of breath, no overnight fever chills, remains hemodynamically stable ? Continue strict NPO ? Continue IV vancomycin, IV Zosyn, and IV fluconazole day 4 ? Continue PPN and transitioned to TPN once PICC line placed ? 1/2? blood culture likely Corynebacterium unlikely pathogen ? follow CBC and electrolytes closely. Echo showed EF 60-65%, no aortic valve stenosis noted, normal diastolic function ? Plan is to repeat CT chest and barium swallow after 3 days to reassess esophageal leak, being followed closely by thoracic surgeon. ? # undifferentiated hypotension - not septic , Hypotension resolved # hypoK - repleted # possible seizure activity - no recurrent seizures noted, continue seizure precautions ?? seen by psych, patient found to have no decision-making capacity, therefore invoked healthcare proxy, spoke with DDS provider Ren Mendez [phone] he recommend to obtain consent from mother Or sister healthcare proxy ?? Called mother healthcare proxy [phone] and took her consent as above # VTE ppx - SCDs, Quality Stroke Does the patient have a stroke diagnosis?: No VTE Prior VTE?: No VTE Risk Level:: Medical - moderate - high VTE Device Contraindication: Treatment Not Indicated VTE Drug Contraindication: N/A - Med Ordered
[2021-10-02] MEDS: Piperacillin Sodium/Tazobactam 3.375 GM in 0.9 % Sodium Chloride 50 ML IV ×2 (17:28→23:06)
[2021-10-02] MEDS: vancomycin HCL 750 MG in 0.9 % Sodium Chloride 250 ML 265 MG IV (18:04)
--- NOTE | 2021-10-02 18:16 | PC.NURSE ---
pt returned from OR where she had PICC line placed. Double lumen ROBERTA. pt alert vss. O2 98% r/a. Vancomycin started in OR. Pt denies pain, resting quietly.
[2021-10-02] MEDS: Fat Emulsions 20% 250 ML 16 ML IVCONT ×2 (20:03→20:13)
[2021-10-02] MEDS: Fluconazole in NaCl,Iso-Osm 100 MG in Container,Empty 0 ML 50 MG IV (20:23)
[2021-10-03 03:38] VITALS: BP 110/64; PULSE 80; RESP 14; TEMP 36.7; O2SAT 96
[2021-10-03] MEDS: Fat Emulsions 20% 250 ML 16 ML IVCONT (05:49)
[2021-10-03] MEDS: vancomycin HCL 750 MG in 0.9 % Sodium Chloride 250 ML 265 MG IV ×2 (07:37→21:05)
[2021-10-03] MEDS: Piperacillin Sodium/Tazobactam 3.375 GM in 0.9 % Sodium Chloride 50 ML IV ×3 (08:42→21:07)
--- NOTE | 2021-10-03 09:44 | PC.NURSE ---
repositioned, pericare done.
[2021-10-03 13:46] LABS: Anion Gap 9 (12-20); Blood Urea Nitrogen 7 mg/dL (9-16); Calcium 7.8 mg/dL (8.4-10.2); Carbon Dioxide 28 mmol/L (22-29); Chloride 105 mmol/L (96-108); Estimated Glomerular Filt Rate > 60; Glucose Random 124 mg/dL (60-115); Magnesium 2.2 mg/dL (1.6-2.6); Phosphorus 3.3 mg/dL (2.7-4.5); Potassium 3.6 mmol/L (3.3-5.1); Sodium 138 mmol/L (135-145)
--- NOTE | 2021-10-03 14:15 | P.PNIM_ITS ---
Subjective Subjective Date of Service: 10/04/21 Interval History: No acute complaints overnight, underwent line placement under MAC last evening tolerated procedure well, this a.m. resting in bed comfortably offers no acute complaints. Review of Systems Review of Systems: Yes all other systems are reviewed and are negative Physical Exam Vital Signs: Vital Signs: Last Vital Signs Temp 98.0 F 10/03/21 03:38 Pulse 80 10/03/21 03:38 Resp 14 10/03/21 03:38 BP 110/64 10/03/21 03:38 Pulse Ox 96 10/03/21 03:38 BMI result Body Mass Index 21.5 Gen:? Awake alert, no acute distress Neck: supple Lungs: clear to auscultation bilaterally Heart: regular rate and rhythm, no murmurs Abd: soft, non-tender, non-distended Ext: no edema Skin: warm/well-perfused,no subcutaneous emphysema palpable Neuro:? Awake, alert, in no distress Psych: impaired insight Objective Data Active Medications Fluconazole 100 mg/ IV (Miscellaneous Supplies) 50 mls @ 50 mls/hr IV Q24H [facility] Last Infusion: 10/02/21 23:16 Dose: 50 mls/hr Documented by: ALEX Piperacillin Sod/Tazobactam (Sod 3.375 gm/ Sodium Chloride) 50 mls @ 100 mls/hr IV Q6H [facility] Last Admin: 10/03/21 14:09 Dose: 100 mls/hr Documented by: JOANN Vancomycin HCl 750 mg/ Sodium (Chloride) 265 mls @ 265 mls/hr IV Q12H [facility] Last Infusion: 10/03/21 08:39 Dose: 0 mls/hr Documented by: JOANN Multivitamins 17 ml/ Trace Metals 1.7 ml/ Amino Acids/Electrolytes/Dextrose 1,200 mls @ 50 mls/hr IV DAILY@1800 [facility] Stop: 10/03/21 17:59 Last Admin: 10/02/21 19:57 Dose: 50 mls/hr Documented by: ALEX Comments: pt came back from or Fat Emulsion Intravenous (Intralipid) 192 mls @ 16 mls/hr IVCONT BID@0600,1800 [facility] Stop: 10/03/21 17:59 Last Admin: 10/03/21 05:49 Dose: 16 mls/hr Documented by: ALEX Lorazepam (Lorazepam 2 Mg/Ml Vial) 0.25 mg IVPUSH Q8H PRN PRN Reason: agitation Labs CBC & Chem 7: 10/04/21 07:52 10/04/21 07:52 Labs: Laboratory Results - last 24 hr 10/03/21 13:10 Anion Gap 9 L Estim Creat Clear Calc 84.0 Estimated GFR > 60 Random Glucose 124 H Calcium 7.8 L Phosphorus 3.3 Magnesium 2.2 Microbiology Microbiology Results: Microbiology 09/28/21 10:50 Blood Culture - Final Blood - Venous No growth after 5 days. 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 Underwent line placement under MAC yesterday evening, will start TPN ? denies chest pain, no shortness of breath, no overnight fever chills, remains hemodynamically stable ? Continue strict NPO ? Continue IV vancomycin, IV Zosyn, and IV fluconazole started on 09/28 day 03/02 ? Continue PPN and transitioned to TPN once PICC line placed ? /2? blood culture likely Corynebacterium unlikely pathogen Renal functions stable WBC trending down, Follow LFTs ? Echo showed EF 60-65%, no aortic valve stenosis noted, normal diastolic function ? Plan is to repeat CT chest and barium swallow after 2 days to reassess esophageal leak, being followed closely by thoracic surgeon. # leukopenia Noted to have drop in WBC, question related to zosyn/diflucan will repeat CBC at a.m. and if continue to trend down will DC Zosyn and Diflucan. ? # Hypotension - not septic, soft BP likely baseline # hypoK - repleted # possible seizure activity - no recurrent seizures noted, continue seizure precautions ?? seen by psych, patient found to have no decision-making capacity, therefore invoked healthcare proxy mother and sister are both healthcare proxys [phone] and her sister Ruth # [phone]. # VTE ppx - SCDs, Quality Stroke Does the patient have a stroke diagnosis?: No VTE Prior VTE?: No VTE Risk Level:: Medical - moderate - high VTE Device Contraindication: Treatment Not Indicated VTE Drug Contraindication: N/A - Med Ordered
--- NOTE | 2021-10-03 14:58 | PM.PNTS ---
Subjective Subjective Date of Service: 10/04/21 Interval history: Patient now s/p PICC line placement under MAC. Received IV abx as ordered today thus far and will be transition from PPN to TPN today Physical Exam Vital Signs: Vital Signs: Last Vital Signs Temp 98.0 F 10/03/21 03:38 Pulse 80 10/03/21 03:38 Resp 14 10/03/21 03:38 BP 110/64 10/03/21 03:38 Pulse Ox 96 10/03/21 03:38 BMI result Body Mass Index 21.5 Const: General: healthy appearing, comfortable and no acute distress Nutritional Appearance: well nourished Orientation/consciousness: oriented to person Limitations: behavioral limitations HENMT: Head: Yes normal to inspection, Yes normocephalic and Yes atraumatic Mouth: Normal oral and palatal mucosa present Eyes: Visual Goodrich: normal visual goodrich by confrontation Alignment and Position: alignment normal Periorbital: periorbital findings normal Conjunctivae: conjunctivae normal Sclerae: sclerae normal Pupils: Equal, round and reactive pupils present and Pupil accommodation reflex normal EOM: EOMs intact bilaterally Neck: Neck: Yes normal visual inspection, Yes full ROM, Yes no lymphadenopathy, Yes trachea midline, Yes supple, No lymphadenopathy, No tender and No tracheal deviation Lymphatic: no lymphadenopathy noted Chest: Chest palpation & inspection: normal inspection of the chest and no crepitus Resp: Other: Patient is breathing comfortably without any shortness of breath or distress. No SQ air palpable on exam. Effort & Inspection: normal respiratory effort, able to speak in complete sentences, normal respiratory pattern, no audible wheezes, no cough, no pursed lip breathing, no respiratory distress, no stridor, not tachypneic and no tracheal deviation Auscultation: clear to auscultation bilaterally Cardio: Jugular venous distension: no JVD Palpation: normal PMI Rate: regular rate Rhythm: regular rhythm Heart sounds: S1 normal heart sound present, S2 normal heart sound present, no click, no gallops, no murmurs and no rubs GI: Inspection: Yes normal to inspection Auscultation: normal bowel sounds : General: Yes no CVA tenderness Back/Spine/Pelvis: Back: no CVA tenderness Thoracic/Lumbar Spine: thoracic and lumbar spine normal to inspection Skin: General skin exam: no rashes or lesions noted and dry skin Lesions: no lesions Rashes: no rashes Neuro: General: oriented to person and gait normal Cranial nerves: Yes Equal, round and reactive pupils present Extrem: General: Yes normal to inspection, Yes full ROM, Yes capillary refill normal, Yes no clubbing, cyanosis or edema, Yes no pedal edema and Yes normal gait Psych: Appearance: grossly normal and well kempt Mental Status: mental status grossly normal Speech and movement: Normal speech and movement present and Clear speech present Affect: normal affect Attitude: cooperative Thought process: Normal thought process present Thought content: Normal thought content present Procedures Date of Service Date of Service: 10/03/21 Progress Note: A&P Assessment and plan (1) Pneumomediastinum: Status: Acute Assessment and Plan: Patient is a 41 year old female with Down Syndrome [facility]-clonic movements concerning for seizure.? During workup she was found to have pneumomediastinum and evidence of small esophageal perforation.? Unknown cause as patient denies any recent retching, vomiting, or dysphasia although she is a poor historian. Patient continues to remain hemodynamically stable.? S/p PICC line placement . CBC ordered this afternoon. Afebrile IV abx given today. Continue with broad spectrum antibiotics: Vanco, Zosyn, Diflucan. Patient seen by psych and deemed not competent in making medical decisions. Patient's HCP will need to be contact to assist with any medical decision making. At this time, re: her pneumomediastinum and possible esophageal perforation we are recommending continuing conservative management Patient will need to be strictly NPO (no PO meds, no sips, no ice chips) for 7 days. Today is day 5. ? At that time we will likely need a repeat barium swallow/CT to evaluate the leak prior to initiating any liquid diet. Continue with? TPN for nutritional support during this time. Monitor patient closely for any s/sx worsening infection/sepsis. Trend WBC and temp. Case discussed with Dr. Jackson. Thank you for this consult. We will continue to follow along. If patient's clinical condition deteriorates, please contact Thoracic Surgery immediately. Fall Risk Details Current Medications: Current Medications Fluconazole 100 mg/ IV (Miscellaneous Supplies) 50 mls @ 50 mls/hr IV Q24H [facility] Last Infusion: 10/02/21 23:16 Dose: Infused Documented by: Piperacillin Sod/Tazobactam (Sod 3.375 gm/ Sodium Chloride) 50 mls @ 100 mls/hr IV Q6H [facility] Last Infusion: 10/03/21 14:50 Dose: Infused Documented by: Vancomycin HCl 750 mg/ Sodium (Chloride) 265 mls @ 265 mls/hr IV Q12H [facility] Last Infusion: 10/03/21 08:39 Dose: Infused Documented by: Multivitamins 17 ml/ Trace Metals 1.7 ml/ Amino Acids/Electrolytes/Dextrose 1,200 mls @ 50 mls/hr IV DAILY@1800 [facility] Stop: 10/03/21 17:59 Last Admin: 10/02/21 19:57 Dose: 50 mls/hr Documented by: Fat Emulsion Intravenous (Intralipid) 192 mls @ 16 mls/hr IVCONT BID@0600,1800 [facility] Stop: 10/03/21 17:59 Last Admin: 10/03/21 05:49 Dose: 16 mls/hr Documented by: Multivitamins 18.5 ml/ Trace Metals 1.9 ml/ Amino Acids/Electrolytes 1,020.4 mls @ 43 mls/hr IV DAILY@1800 [facility] Stop: 10/04/21 17:44 Fat Emulsion Intravenous (Intralipid) 192 mls @ 16 mls/hr IV DAILY@1800 [facility] Stop: 10/04/21 05:59 Lorazepam (Lorazepam 2 Mg/Ml Vial) 0.25 mg IVPUSH Q8H PRN PRN Reason: agitation Time Spent With Patient Time: Total time spent is greater than 50% in coordination of care (as documented) at patient's floor/unit and/or counseling patient: Time with patient: less than 15 minutes Quality Stroke Does the patient have a stroke diagnosis?: No VTE Prior VTE?: No VTE Risk Level:: Medical - moderate - high VTE Device Contraindication: Treatment Not Indicated VTE Drug Contraindication: N/A - Med Ordered
[2021-10-03 14:59] VITALS: BP 96/58; PULSE 88; RESP 12; TEMP 36.1; O2SAT 100
[2021-10-03 15:50] LABS: Hematocrit 34.9 % (37.0-47.0); Mean Corpuscular HGB Conc 34.4 g/dl (31.0-35.0); Mean Corpuscular Hemoglobin 33.2 pg (27.0-33.0); Mean Corpuscular Volume 96.7 fL (80.0-98.0); Mean Platelet Volume 9.7 fL (9.4-12.3); Platelet Count 176 X10*3/uL (160-400); Red Blood Count 3.61 X10*6/uL (4.20-5.50); Red Cell Distribution Width 13.8 % (11.0-16.0)
[2021-10-03 16:09] LABS: White Blood Count 1.5 X10*3/uL (4.8-10.8)
[2021-10-03 16:48] LABS: Glucose, Whole Blood 106 mg/dL (60-115)
[2021-10-03] MEDS: Fat Emulsions 20% 250 ML 16 ML IV (18:06)
[2021-10-03] MEDS: Fluconazole in NaCl,Iso-Osm 100 MG in Container,Empty 0 ML 50 MG IV (18:30)
--- NOTE | 2021-10-03 19:37 | PC.NURSE ---
Assumed care of pt at 1900. Pt resting in bed and in NAD, call light within reach, tpn infusing. Per day RN, difficult to infuse lipids via PICC line, aware and okay to hold infusion
[2021-10-03 20:07] VITALS: BP 93/49; PULSE 86; RESP 19; TEMP 36.3; O2SAT 99
[2021-10-03 23:27] VITALS: PULSE 86; RESP 12
[2021-10-04] MEDS: Piperacillin Sodium/Tazobactam 3.375 GM in 0.9 % Sodium Chloride 50 ML IV ×2 (02:46→10:01)
[2021-10-04 04:44] VITALS: BP 107/56; PULSE 82; RESP 12; O2SAT 99
[2021-10-04 08:08] VITALS: BP 94/51; PULSE 73; RESP 12; TEMP 36.3; O2SAT 100
[2021-10-04 08:11] LABS: Basophils Percent Auto 3.2 % (0-2); Eosinophils Absolute Auto 0.1 X10*3/uL (0.0-0.4); Eosinophils Percent Auto 8.9 % (0-4); Hematocrit 36.5 % (37.0-47.0); Hemoglobin 12.1 g/dl (12.0-16.0); Lymphocytes Absolute Auto 0.7 X10*3/uL (1.2-4.9); Lymphocytes Percent Auto 56.5 % (20-40); MANUAL DIFF FLAG SCAN; Mean Corpuscular HGB Conc 33.2 g/dl (31.0-35.0); Mean Corpuscular Hemoglobin 32.6 pg (27.0-33.0); Mean Corpuscular Volume 98.4 fL (80.0-98.0); Monocytes Absolute Auto 0.2 X10*3/uL (0.1-1.2); Monocytes Percent Auto 12.1 % (2-11); Neutrophils Absolute Auto 0.2 x10*3/uL (2.0-8.3); Neutrophils Percent Auto 19.3 % (45-73); Platelet Count 181 X10*3/uL (160-400); Red Blood Count 3.71 X10*6/uL (4.20-5.50); Red Cell Distribution Width 14.3 % (11.0-16.0); SCAN SMEAR FLAG 1
[2021-10-04 08:13] LABS: White Blood Count 1.2 X10*3/uL (4.8-10.8)
[2021-10-04] MEDS: vancomycin HCL 750 MG in 0.9 % Sodium Chloride 250 ML 265 MG IV ×2 (08:22→19:48)
[2021-10-04 08:31] LABS: Triglycerides 71 mg/dL
[2021-10-04 08:32] LABS: SLIDE REVIEW VERIFIED
[2021-10-04 08:36] LABS: Albumin Level 2.7 g/dL (3.5-5.0); Anion Gap 10 (12-20); Blood Urea Nitrogen 8 mg/dL (9-16); Calcium 7.9 mg/dL (8.4-10.2); Carbon Dioxide 27 mmol/L (22-29); Chloride 106 mmol/L (96-108); Estimated Glomerular Filt Rate > 60; Glucose Random 98 mg/dL (60-115); Magnesium 2.2 mg/dL (1.6-2.6); Phosphorus 3.1 mg/dL (2.7-4.5); Potassium 3.6 mmol/L (3.3-5.1); Sodium 139 mmol/L (135-145)
--- NOTE | 2021-10-04 11:20 | PC.NURSE ---
ede (rn) from the facility that pt is from called [facility] [place] and was updated on pt status.
--- NOTE | 2021-10-04 12:22 | HO.PM.IMPN ---
Subjective Subjective Date of Service: 10/04/21 Interval History: Resting comfortably offers no acute complaints, no fevers noted overnight. No other acute issues in last 24 hours. Review of Systems Say no to all questions Review of Systems: Yes all other systems are reviewed and are negative Physical Exam Vital Signs: Vital Signs: Last Vital Signs Temp 97.3 F 10/04/21 08:08 Pulse 73 10/04/21 08:08 Resp 12 10/04/21 08:08 BP 94/51 L 10/04/21 08:08 Pulse Ox 100 10/04/21 08:08 BMI result Body Mass Index 21.5 Gen:? Awake alert, no acute distress Neck: supple Lungs: clear to auscultation bilaterally Heart: regular rate and rhythm, no murmurs Abd: soft, non-tender, non-distended Ext: no edema PICC line in place Skin: warm/well-perfused,no subcutaneous emphysema palpable Neuro:? Awake, alert, in no distress Psych: impaired insight Objective Data Active Medications Vancomycin HCl 750 mg/ Sodium (Chloride) 265 mls @ 265 mls/hr IV Q12H [facility] Last Infusion: 10/04/21 09:30 Dose: 0 mls/hr Documented by: IRINA Multivitamins 18.5 ml/ Trace Metals 1.9 ml/ Amino Acids/Electrolytes 1,020.4 mls @ 43 mls/hr IV DAILY@1800 [facility] Stop: 10/04/21 17:44 Last Admin: 10/03/21 18:06 Dose: 43 mls/hr Documented by: JOANN Multivitamins 10 ml/ Trace Metals 1 ml/ Amino Acids/Electrolytes 1,011 mls @ 43 mls/hr IV DAILY@1800 [facility] Stop: 10/05/21 17:31 Fat Emulsion Intravenous (Intralipid) 192 mls @ 16 mls/hr IVCONT DAILY@1800 [facility] Stop: 10/05/21 05:59 Labs CBC & Chem 7: 10/04/21 07:52 10/04/21 07:52 Labs: Laboratory Results - last 24 hr 10/03/21 10/03/21 10/03/21 13:10 15:40 16:31 MCV 96.7 MCH 33.2 H MCHC 34.4 RDW 13.8 Plt Count 176 MPV 9.7 Immature Gran % (Auto) Neut % (Auto) Lymph % (Auto) Noble % (Auto) Eos % (Auto) Baso % (Auto) Lymph # (Auto) Noble # (Auto) Eos # (Auto) Baso # (Auto) Abs Immat Gran (auto) Absolute Neuts (auto) Absolute Nucleated RBC 0.000 Nucleated RBC % (auto) 0.0 Smear Tech's Comments Anion Gap 9 L Estim Creat Clear Calc 84.0 Estimated GFR > 60 POC Glucose 106 Random Glucose 124 H Calcium 7.8 L Phosphorus 3.3 Magnesium 2.2 Albumin Triglycerides 10/04/21 10/04/21 10/04/21 07:52 07:52 07:52 MCV Cancelled MCH Cancelled MCHC Cancelled RDW Cancelled Plt Count Cancelled MPV Cancelled Immature Gran % (Auto) Neut % (Auto) Lymph % (Auto) Noble % (Auto) Eos % (Auto) Baso % (Auto) Lymph # (Auto) Noble # (Auto) Eos # (Auto) Baso # (Auto) Abs Immat Gran (auto) Absolute Neuts (auto) Absolute Nucleated RBC Cancelled Nucleated RBC % (auto) Cancelled Smear Tech's Comments Anion Gap 10 L Estim Creat Clear Calc 84.0 Estimated GFR > 60 POC Glucose Random Glucose 98 Calcium 7.9 L Phosphorus 3.1 Magnesium 2.2 Albumin 2.7 L D Triglycerides 71 10/04/21 07:52 MCV 98.4 H MCH 32.6 MCHC 33.2 RDW 14.3 Plt Count 181 MPV 10.0 Immature Gran % (Auto) 0.0 Neut % (Auto) 19.3 L Lymph % (Auto) 56.5 H Noble % (Auto) 12.1 H Eos % (Auto) 8.9 H Baso % (Auto) 3.2 H Lymph # (Auto) 0.7 L Noble # (Auto) 0.2 Eos # (Auto) 0.1 Baso # (Auto) 0.0 Abs Immat Gran (auto) 0.00 Absolute Neuts (auto) 0.2 L Absolute Nucleated RBC 0.000 Nucleated RBC % (auto) 0.0 Smear Tech's Comments VERIFIED Anion Gap Estim Creat Clear Calc Estimated GFR POC Glucose Random Glucose Calcium Phosphorus Magnesium Albumin Triglycerides Microbiology Microbiology Results: Microbiology 09/28/21 10:50 Blood Culture - Final Blood - Venous No growth after 5 days. 09/28/21 11:15 Blood Culture - Final Blood - Venous Corynebacterium species Assessment and Plan (1) Esophageal perforation: Status: Acute (2) LOC (loss of consciousness): Status: Acute (3) Pneumomediastinum: Status: Acute (4) Hypokalemia: Status: Acute (5) Hypotension: Status: Acute (6) Leukopenia: Status: Acute Assessment and Plan: 41yo F assisted 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, no other medical problems, sent in for reported tonic-clonic movements though no seizure history [but [address] [facility] [place] last 3 mo for syncope] admitted for hypotension,found to have extensive pneumomediastinum with evidence of esophageal perforation # esophageal perforation/ pneumomediastinum ? No acute issues overnight,denies chest pain, no shortness of breath, no overnight fever chills, remains hemodynamically stable with soft BP ? Continue strict NPO ? Continue IV vancomycin day 7, will DC IV Zosyn, and IV fluconazole due to leukopenia ? Continue TPN has PICC line placed on 10/02/21 ? 09/27? blood culture likely Corynebacterium unlikely pathogen ? Renal functions stable WBC down to 1.2 ,ANC 0.2 , normal LFTs ? Echo showed EF 60-65%, no aortic valve stenosis noted, normal diastolic function ? Plan is to repeat CT chest and barium swallow to reassess esophageal leak, being followed closely by thoracic surgeon. # leukopenia ?? Noted to have drop in WBC,ANC 0.2 dc iv zosyn/diflucan will repeat CBC at a.m. will take neutropenic precaution # Hypotension - not septic, soft BP likely baseline # hypoK - repleted # possible seizure activity - no recurrent seizures noted, continue seizure precautions ?? seen by psych, patient found to have no decision-making capacity, therefore invoked healthcare proxy mother and sister are both healthcare proxys [phone]? and her sister Ruth # [phone]. # VTE ppx - SCDs, Quality Stroke Does the patient have a stroke diagnosis?: No VTE Prior VTE?: No VTE Risk Level:: Medical - moderate - high VTE Device Contraindication: Treatment Not Indicated VTE Drug Contraindication: N/A - Med Ordered
[2021-10-04 12:50] LABS: Alanine Aminotransferase 9 U/L (0-31); Alkaline Phosphatase 58 U/L (39-117); Aspartate Amino Transferase 18 U/L (5-31); Bilirubin Direct 0.2 mg/dL (0.0-0.5); Bilirubin Total 0.2 mg/dL (0.0-1.0); Total Protein 5.6 g/dL (6.5-8.0)
[2021-10-04 13:03] VITALS: BP 93/53; PULSE 64; RESP 12; TEMP 36.2; O2SAT 100
--- NOTE | 2021-10-04 16:02 | P.PNTS_ITS ---
Subjective Subjective Date of Service: 10/04/21 Interval history: Patient seen and examined. PICC line in place. No events overnight. Now on neutropenic precautions. Not communicative today, just smiling and nodding when asked questions. Appears comfortable in bed. Physical Exam Vital Signs: Vital Signs: Last Vital Signs Temp 97.1 F 10/04/21 13:03 Pulse 64 10/04/21 13:03 Resp 12 10/04/21 13:03 BP 93/53 L 10/04/21 13:03 Pulse Ox 100 10/04/21 13:03 BMI result Body Mass Index 21.5 Const: General: cooperative, healthy appearing, comfortable and no acute distress Nutritional Appearance: well nourished Limitations: behavioral limitations HENMT: Head: Yes normal to inspection, Yes normocephalic and Yes atraumatic Mouth: other (Dry oral mucosae) Eyes: Visual Goodrich: normal visual goodrich by confrontation Alignment and Position: alignment normal Periorbital: periorbital findings normal Conjunctivae: conjunctivae normal Sclerae: sclerae normal Pupils: Equal, round and reactive pupils present and Pupil accommodation reflex normal EOM: EOMs intact bilaterally Neck: Neck: Yes normal visual inspection, Yes full ROM, Yes no lymphadenopathy, Yes trachea midline, Yes supple, No lymphadenopathy, No tender and No tracheal deviation Lymphatic: no lymphadenopathy noted Chest: Chest palpation & inspection: normal inspection of the chest and no crepitus Resp: Effort & Inspection: normal respiratory effort, able to speak in complete sentences, normal respiratory pattern, no audible wheezes, no cough, no pursed lip breathing, no respiratory distress, no stridor, not tachypneic, no tracheal deviation and other (Patient speaking in full sentences on room air. Chest tube to *waterseal/mota) Auscultation: clear to auscultation bilaterally Cardio: Jugular venous distension: no JVD Palpation: normal PMI Rate: regular rate Rhythm: regular rhythm Heart sounds: S1 normal heart sound present, S2 normal heart sound present, no click, no gallops, no murmurs and no rubs GI: Inspection: Yes normal to inspection Auscultation: normal bowel sounds : General: Yes no CVA tenderness Back/Spine/Pelvis: Back: no CVA tenderness Thoracic/Lumbar Spine: thoracic and lumbar spine normal to inspection Skin: General skin exam: no rashes or lesions noted and dry skin Lesions: no lesions Rashes: no rashes Neuro: General: gait normal Cranial nerves: Yes Equal, round and reactive pupils present Extrem: General: Yes normal to inspection, Yes full ROM, Yes capillary refill normal, Yes no clubbing, cyanosis or edema, Yes no pedal edema and Yes normal gait Psych: Appearance: grossly normal and well kempt Mental Status: mental status grossly normal Speech and movement: Normal speech and movement present and Clear speech present Affect: normal affect Attitude: cooperative Thought process: Normal thought process present Thought content: Normal thought content present Procedures Date of Service Date of Service: 10/04/21 Progress Note: A&P Assessment and plan (1) Pneumomediastinum: Status: Acute Assessment and Plan: Patient is a 41 year old female with Down Syndrome [facility] concerning for seizure.? During workup she was found to have pneumomediastinum and evidence of small esophageal perforation.? Unknown cause as patient denies any recent retching, vomiting, or dysphasia although she is a poor historian. * Patient continues to remain hemodynamically stable.? * S/p PICC line placement on 10/03/21 * Due to neutropenia, patient started on neutropenic precautions and IV Zosyn and Diflucan discontinued * Continues on IV Vancomycin * Psych has deemed patient not competent to make medical decisions. HCP to assist with medical decision making * At this time, re: her pneumomediastinum and possible esophageal perforation we are recommending continuing conservative management * Patient will need to be strictly NPO (no PO meds, no sips, no ice chips) for 7 days. * Plan for barium swallow tomorrow morning. If no evidence of esophageal perforation, may consider starting sips of clear liquid diet * Continue with? TPN for nutritional support during this time. * Monitor patient closely for any s/sx worsening infection/sepsis. * Trend WBC and temp. Case discussed with Dr. Jackson. Thank you for this consult. We will continue to follow along. If patient's clinical condition deteriorates, please contact Thoracic Surgery immediately. Fall Risk Details Current Medications: Current Medications Vancomycin HCl 750 mg/ Sodium (Chloride) 265 mls @ 265 mls/hr IV Q12H [facility] Last Infusion: 10/04/21 09:30 Dose: Infused Documented by: Multivitamins 18.5 ml/ Trace Metals 1.9 ml/ Amino Acids/Electrolytes 1,020.4 mls @ 43 mls/hr IV DAILY@1800 [facility] Stop: 10/04/21 17:44 Last Admin: 10/03/21 18:06 Dose: 43 mls/hr Documented by: Multivitamins 10 ml/ Trace Metals 1 ml/ Amino Acids/Electrolytes 1,011 mls @ 43 mls/hr IV DAILY@1800 [facility] Stop: 10/05/21 17:31 Fat Emulsion Intravenous (Intralipid) 192 mls @ 16 mls/hr IVCONT DAILY@1800 [facility] Stop: 10/05/21 05:59 Time Spent With Patient Time: Total time spent is greater than 50% in coordination of care (as documented) at patient's floor/unit and/or counseling patient: Time with patient: less than 15 minutes Quality Stroke Does the patient have a stroke diagnosis?: No VTE Prior VTE?: No VTE Risk Level:: Medical - moderate - high VTE Device Contraindication: Treatment Not Indicated VTE Drug Contraindication: N/A - Med Ordered
[2021-10-04] MEDS: Fat Emulsions 20% 250 ML 16 ML IVCONT (17:43)
[2021-10-04 23:33] VITALS: BP 88/45; PULSE 80; RESP 12; O2SAT 100
[2021-10-05 00:41] VITALS: BP 103/58; PULSE 69; RESP 12; O2SAT 100
[2021-10-05 04:14] VITALS: BP 108/55; PULSE 62; RESP 15
[2021-10-05 07:49] VITALS: BP 99/73; PULSE 68; RESP 12; O2SAT 100
--- NOTE | 2021-10-05 08:20 | PC.NURSE ---
Pt received from researcher: Pt AOx2-3 and offers no complaints at this time. R PICC line noted in place and flushing well. TPN and lipids running on schedule basis. NSR noted with clear lungs. Pt abd soft, and non tender. Bergman cather in place and draining.
--- NOTE | 2021-10-05 09:37 | MHC.CLN ---
F/U PT RECEIVED PICC LINE OVER THE WEEKEND DISCUSSED WITH PHARMACY RECOMMEND INCREASING TPN D15 AA5 TO 60ML/HR WITH 16ML OF 20% LIPIDS TO PROVIDE 1406 TOTAL KCALS (28KCALS/KG), 72G PROTEIN (1.4G/KG) REPLETE LYTES NEEDED FOLLOWING WITH TEAM
[2021-10-05 09:39] LABS: Basophils Absolute Auto 0.1 X10*3/uL (0.0-0.2); Basophils Percent Auto 2.5 % (0-2); Eosinophils Absolute Auto 0.3 X10*3/uL (0.0-0.4); Eosinophils Percent Auto 12.3 % (0-4); Hematocrit 38.1 % (37.0-47.0); Imm Gran Abs Auto 0.01 X10*3/uL (0.00-0.03); Imm Gran Pct Auto 0.5 % (0.0-0.4); MANUAL DIFF FLAG SCAN; Mean Corpuscular HGB Conc 34.1 g/dl (31.0-35.0); Mean Corpuscular Hemoglobin 33.4 pg (27.0-33.0); Mean Corpuscular Volume 97.9 fL (80.0-98.0); Mean Platelet Volume 10.1 fL (9.4-12.3); Monocytes Absolute Auto 0.2 X10*3/uL (0.1-1.2); Monocytes Percent Auto 11.3 % (2-11); Neutrophils Absolute Auto 0.5 x10*3/uL (2.0-8.3); Neutrophils Percent Auto 23.4 % (45-73); Platelet Count 202 X10*3/uL (160-400); Red Blood Count 3.89 X10*6/uL (4.20-5.50); Red Cell Distribution Width 14.2 % (11.0-16.0); SCAN SMEAR FLAG 1
[2021-10-05 09:53] LABS: Anion Gap 10 (12-20); Blood Urea Nitrogen 8 mg/dL (9-16); Calcium 8.3 mg/dL (8.4-10.2); Carbon Dioxide 29 mmol/L (22-29); Chloride 104 mmol/L (96-108); Creatinine Clr Calc Pharmacy 82.6; Estimated Glomerular Filt Rate > 60; Glucose Random 97 mg/dL (60-115); Magnesium 2.3 mg/dL (1.6-2.6); Phosphorus 2.9 mg/dL (2.7-4.5); Potassium 4.4 mmol/L (3.3-5.1); Sodium 139 mmol/L (135-145)
[2021-10-05] MEDS: vancomycin HCL 750 MG in 0.9 % Sodium Chloride 250 ML 265 MG IV (10:19)
[2021-10-05 10:25] LABS: SLIDE REVIEW VERIFIED
[2021-10-05 12:47] VITALS: BP 101/51; PULSE 71
--- NOTE | 2021-10-05 13:11 | HO.PM.IMPN ---
Subjective Subjective Date of Service: 10/05/21 Interval History: Awake alert this morning, not responding much to questions, refusing barium study, no overnight fever chills, blood pressure remains soft, but stable, no other acute issues overnight. Review of Systems Review of Systems: Yes all other systems are reviewed and are negative Physical Exam Vital Signs: Vital Signs: Last Vital Signs Temp 97.1 F 10/04/21 13:03 Pulse 71 10/05/21 12:47 Resp 12 10/05/21 07:49 BP 101/51 L 10/05/21 12:47 Pulse Ox 100 10/05/21 07:49 BMI result Body Mass Index 21.5 Gen:? Awake alert, no acute distress Neck: supple Lung s: clear to auscul tation bilaterally Heart: regular ra te and rhythm, no murmurs Abd: soft, non-tender, non-d istended Ext: no e lindsey PICC line in place Skin: warm/w ell-perfused,no mota bcutaneous emphyse ma Neuro:? Awake, alert, in no dist ress Psych: impair ed insight Objective Data Active Medications Vancomycin HCl 750 mg/ Sodium (Chloride) 265 mls @ 265 mls/hr IV Q12H REPLACED BY [facility] Last Infusion: 10/05/21 11:34 Dose: 0 mls/hr Documented by: LILY Multivitamins 10 ml/ Trace Metals 1 ml/ Amino Acids/Electrolytes 1,011 mls @ 43 mls/hr IV DAILY@1800 REPLACED BY [facility] Stop: 10/05/21 17:31 Last Admin: 10/04/21 17:43 Dose: 43 mls/hr Documented by: GAMALIEL Multivitamins 14 ml/ Trace Metals 1.4 ml/ Amino Acids/Electrolytes 1,440 mls @ 60 mls/hr IV DAILY@1800 REPLACED BY [facility] Stop: 10/06/21 17:59 Fat Emulsion Intravenous (Intralipid) 192 mls @ 16 mls/hr IV DAILY@1800 REPLACED BY [facility] Stop: 10/06/21 05:59 Labs CBC & Chem 7: 10/05/21 08:46 10/05/21 08:48 Labs: Laboratory Results - last 24 hr 10/04/21 10/05/21 10/05/21 18:12 08:46 08:48 MCV 97.9 MCH 33.4 H MCHC 34.1 RDW 14.2 Plt Count 202 MPV 10.1 Immature Gran % (Auto) 0.5 H Neut % (Auto) 23.4 L Lymph % (Auto) 50.0 H [place] % (Auto) 11.3 H Eos % (Auto) 12.3 H Baso % (Auto) 2.5 H Lymph # (Auto) 1.0 L [place] # (Auto) 0.2 Eos # (Auto) 0.3 Baso # (Auto) 0.1 Abs Immat Gran (auto) 0.01 Absolute Neuts (auto) 0.5 L Absolute Nucleated RBC 0.000 Nucleated RBC % (auto) 0.0 Smear Tech's Comments VERIFIED Anion Gap 10 L Estim Creat Clear Calc 82.6 Estimated GFR > 60 Random Glucose 97 Calcium 8.3 L Phosphorus 2.9 Magnesium 2.3 Vancomycin Trough 12.0 Assessment and Plan (1) Leukopenia: Status: Acute (2) Esophageal perforation: Status: Acute (3) Pneumomediastinum: Status: Acute (4) Hypokalemia: Status: Acute (5) Hypotension: Status: Acute Assessment and Plan: 41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 No acute issues overnight,denies chest pain, no shortness of breath, no overnight fever chills, remains hemodynamically stable with soft BP ? Continue strict NPO due to esophageal tear ? Continue IV vancomycin day 8, IV Zosyn, and IV fluconazole discontinued 10/04, due to leukopenia ? Continue? TPN has PICC line placed on 10/02/21 ? 09/27? blood culture likely Corynebacterium unlikely pathogen ? Renal functions stable WBC improved to 2,from 1.2 ,ANC 0.5 , normal LFTs ? Echo showed EF 60-65%, no aortic valve stenosis noted, normal diastolic function ? barium swallow ordered to reassess esophageal leak, however patient refused to undergo procedure Called patient's sister came [phone] formed her about patient's clinical condition and refusal to undergo barium study she gave permission to use chemicals/physical restraint or MAC if any procedure needed to be done That will help in patient's treatment. # leukopenia ?? Noted to have drop in WBC, therefore Zosyn and Diflucan discontinued WBC trending of will continue to follow CBC and take neutropenic precaution # Hypotension - not septic, soft BP likely baseline # hypoK - repleted # possible seizure activity - no recurrent seizures noted, continue seizure precautions ?? seen by psych, patient found to have no decision-making capacity, therefore invoked healthcare proxy mother and sister are both healthcare proxys mom [phone]? and her sister Ruth # [phone]. # VTE ppx - SCDs, Quality Stroke Does the patient have a stroke diagnosis?: No VTE Prior VTE?: No VTE Risk Level:: Medical - moderate - high VTE Device Contraindication: Treatment Not Indicated VTE Drug Contraindication: N/A - Med Ordered
--- NOTE | 2021-10-05 14:37 | PC.NURSE ---
Pt update status given to pt's healthcare proxy and sister Ruth: [phone]
--- NOTE | 2021-10-05 15:17 | PC.NURSE ---
Pt asked on multiple occasions and still refusing Barium Swallow eval. Gaston Fermin made aware and states that pt can start sips of clears only- no straws or carbonated beverages without need for test. Pending change of diet orders. RN will continue to monitor.
--- NOTE | 2021-10-05 15:30 | PM.PNTS ---
Subjective Subjective Date of Service: 10/05/21 Interval history: Patient has remained n.p.o. now for 7 days. Her IV antibiotics Diflucan and Zosyn were discontinued yesterday due to leukopenia. She remains on vancomycin via IV and receiving TPN. A barium swallow study to be followed with a dry chest CT scan was ordered for today however patient continues to refuse. Due to the fact the patient continues to refuse barium swallow will advance diet slowly to sips of clear only and see how she tolerates. Patient was unwilling to answer any of my questions during my examination today. Physical Exam Vital Signs: Vital Signs: Last Vital Signs Temp 97.1 F 10/04/21 13:03 Pulse 71 10/05/21 12:47 Resp 12 10/05/21 07:49 BP 101/51 L 10/05/21 12:47 Pulse Ox 100 10/05/21 07:49 BMI result Body Mass Index 21.5 Const: General: comfortable, no acute distress and lethargic Orientation/consciousness: lethargic HENMT: Head: Yes atraumatic Eyes: Conjunctivae: conjunctivae normal Sclerae: sclerae normal Neck: Neck: Yes trachea midline, Yes supple and Yes other ( No subcutaneous emphysema noted on physical exam.) Chest: Other: Unable to appreciate any subcutaneous emphysema or crepitus along anterior, left, right or posterior chest wall Resp: Other: breath sounds are clear to auscultation bilaterally throughout all lung goodrich with no adventitious sounds such as wheezes or rhonchi. Effort & Inspection: normal respiratory effort Cardio: Jugular venous distension: no JVD Rate: regular rate GI: Inspection: Yes normal to inspection Palpation (GI): Soft to palpation and nontender Auscultation: normal bowel sounds Extrem: General: Yes normal to inspection and Yes no clubbing, cyanosis or edema Procedures Date of Service Date of Service: 10/05/21 Progress Note: A&P Assessment and plan (1) Pneumomediastinum: Status: Acute Assessment and Plan: Patient is a 41 year old female with Down Syndrome presenting to the hospital from her intermediate after tonic-clonic movements concerning for seizure.? During workup she was found to have pneumomediastinum and evidence of small esophageal perforation.? Unknown cause as patient denies any recent retching, vomiting, or dysphasia although she is a poor historian. Patient continues to remain hemodynamically stable.? S/p PICC line placement .CBC reveals a slight uptake in WBC from 1.2 to now 2.0.. Afebrile IV abx Zosyn, and Diflucan were discontinued by medicine team yesterday due to leukopenia Patient seen by psych and deemed not competent in making medical decisions. Patient's HCP will need to be contact to assist with any medical decision making. At this time, re: her pneumomediastinum and possible esophageal perforation we are recommending continuing conservative management. A barium swallow and a dry CT scan of the chest was ordered fo today however patient continues to refuse care Able to make her own medical decisions it would be impossible to force a patient to perform a barium swallow. Her n.p.o. diet was advanced to sips of clears only (no straws or carbonated beverages) Continue with? TPN for nutritional support during this time. Monitor patient closely for any s/sx worsening infection/sepsis. Trend WBC and temp. Case discussed with Dr. Jackson. Thank you for this consult. We will continue to follow along. If patient's clinical condition deteriorates, please contact Thoracic Surgery immediately. Fall Risk Details Current Medications: Current Medications Vancomycin HCl 750 mg/ Sodium (Chloride) 265 mls @ 265 mls/hr IV Q12H [facility] Last Infusion: 10/05/21 11:34 Dose: Infused Documented by: Multivitamins 10 ml/ Trace Metals 1 ml/ Amino Acids/Electrolytes 1,011 mls @ 43 mls/hr IV DAILY@1800 [facility] Stop: 10/05/21 17:31 Last Admin: 10/04/21 17:43 Dose: 43 mls/hr Documented by: Multivitamins 14 ml/ Trace Metals 1.4 ml/ Amino Acids/Electrolytes 1,440 mls @ 60 mls/hr IV DAILY@1800 [facility] Stop: 10/06/21 17:59 Fat Emulsion Intravenous (Intralipid) 192 mls @ 16 mls/hr IV DAILY@1800 [facility] Stop: 10/06/21 05:59 Time Spent With Patient Time: Total time spent is greater than 50% in coordination of care (as documented) at patient's floor/unit and/or counseling patient: Time with patient: 15 - 24 minutes Quality Stroke Does the patient have a stroke diagnosis?: No VTE Prior VTE?: No VTE Risk Level:: Medical - moderate - high VTE Device Contraindication: Treatment Not Indicated VTE Drug Contraindication: N/A - Med Ordered
[2021-10-05 16:00] VITALS: BP 90/40; PULSE 76; RESP 16; TEMP 36.5; O2SAT 100
[2021-10-05] MEDS: Fat Emulsions 20% 250 ML 16 ML IV (16:57)
--- NOTE | 2021-10-05 18:27 | PC.NURSE ---
Attempted on multiple occasions with multiple nurses, to have pt drip small sips of water. Pt however refusing to drink anything. RN will continue to monitor.
[2021-10-05 20:27] VITALS: BP 99/39; PULSE 77; RESP 16; TEMP 36.8; O2SAT 96
[2021-10-05] MEDS: vancomycin HCL 750 MG in 0.9 % Sodium Chloride 250 ML 250 MG IV (21:25)
[2021-10-06] VITALS (7 sets, daily range): BP systolic 85–107; BP diastolic 40–59; PULSE 65–80; RESP 10–18; TEMP 36.4–36.8; O2SAT 97–100
--- NOTE | 2021-10-06 07:12 | PC.NURSE ---
report taken from previous shift rn pt resting comfortably in stretcher, per previous shift rn pt is refusing further labs and imaging and is at mental capacity to do so. pt denies any complaints at this time, tpn infusing at this time, resting comfortably in stretcher. wctm for dc needs.
[2021-10-06] MEDS: vancomycin HCL 750 MG in 0.9 % Sodium Chloride 250 ML 250 MG IV ×2 (08:09→20:29)
--- NOTE | 2021-10-06 08:23 | P.PNTS_ITS ---
Subjective Subjective Date of Service: 10/07/21 Interval history: Patient seen and examined this am. Doing well overall. No events overnight. Started on sips of clears yesterday after refusing Barium swallow and CT of chest yesterday. Denies any vomiting, nausea, dry heaves, or wretching. Denies respiratory distress or shortness of breath. Continues on TPN and IV Vancomycin. Physical Exam Vital Signs: Vital Signs: Last Vital Signs Temp 98.2 F 10/05/21 20:27 Pulse 65 10/06/21 05:52 Resp 10 L 10/06/21 05:52 BP 104/59 L 10/06/21 05:52 Pulse Ox 97 10/06/21 05:52 BMI result Body Mass Index 21.5 Const: General: cooperative, healthy appearing, comfortable and no acute distress Nutritional Appearance: well nourished Orientation/consciousness: oriented to person and Other orientation findings (unable to determine. Patient would not answer questions) Limitations: no limitations and behavioral limitations HENMT: Head: Yes normal to inspection, Yes normocephalic and Yes atraumatic Mouth: Normal oral and palatal mucosa present and other (Dry oral mucosae) Eyes: Visual Goodrich: normal visual goodrich by confrontation Alignment and Position: alignment normal Periorbital: periorbital findings normal Conjunctivae: conjunctivae normal Sclerae: sclerae normal Pupils: Equal, round and reactive pupils present and Pupil accommodation reflex normal EOM: EOMs intact bilaterally Neck: Neck: Yes normal visual inspection, Yes full ROM, Yes no lymphadenopathy, Yes trachea midline, Yes supple, No lymphadenopathy, No tender, No tracheal deviation and Yes other ( No subcutaneous emphysema noted on physical exam.) Lymphatic: no lymphadenopathy noted Chest: Other: Unable to appreciate any subcutaneous emphysema or crepitus along anterior, left, right or posterior chest wall Chest palpation & inspection: normal inspection of the chest and no crepitus Resp: Other: Patient is breathing comfortably on room air. No SQ air. Effort & Inspection: normal respiratory effort, able to speak in complete sentences, normal respiratory pattern, no audible wheezes, no cough, no pursed lip breathing, no respiratory distress, no stridor, not tachypneic and no tracheal deviation Auscultation: clear to auscultation bilaterally Cardio: Jugular venous distension: no JVD Palpation: normal PMI Rate: regular rate Rhythm: regular rhythm Heart sounds: S1 normal heart sound present, S2 normal heart sound present, no click, no gallops, no murmurs and no rubs GI: Inspection: Yes normal to inspection Palpation (GI): Soft to palpation and nontender Auscultation: normal bowel sounds : General: Yes no CVA tenderness Back/Spine/Pelvis: Back: no CVA tenderness Thoracic/Lumbar Spine: thoracic and lumbar spine normal to inspection Skin: General skin exam: no rashes or lesions noted and dry skin Lesions: no lesions Rashes: no rashes Neuro: General: oriented to person and gait normal Cranial nerves: Yes Equ al, round and reactive pupils present Extrem: General: Yes normal to inspection, Yes full ROM, Yes capillary refill normal, Yes no clubbing, cyanosis or edema, Yes no pedal edema and Yes normal gait Psych: Appearance: grossly normal and well kempt Mental Status: mental status grossly normal Speech and movement: Normal speech and movement present and Clear speech present Affect: normal affect Attitude: cooperative Thought process: Normal thought process present Thought content: Normal thought content present Procedures Date of Service Date of Service: 10/06/21 Progress Note: A&P Assessment and plan (1) Pneumomediastinum: Status: Acute Assessment and Plan: Patient is a 41 year old female with Down Syndrome presenting to the hospital from her intermediate after tonic-clonic movements concerning for seizure.? During workup she was found to have pneumomediastinum and evidence of small esophageal perforation.? Unknown cause as patient denies any recent retching, vomiting, or dysphasia although she is a poor historian. * Patient continues to remain hemodynamically stable.? * S/p PICC line placement .CBC reveals a slight uptake in WBC from 1.2 to now 2.0. Afebrile. No CBC done today at time of my exam * Continues on IV vancomycin and TPN at this time * Patient seen by psych and deemed not competent in making medical decisions. Patient's HCP will need to be contact to assist with any medical decision making. * At this time, re: her pneumomediastinum and possible esophageal perforation we are recommending continuing conservative management. * Patient refused a barium swallow and a dry CT scan of the chest yesterday. Will attempt to perform again today as patient appears to be more agreeable. * She will continue on clear liquids for the next three days and we can advance to a full liquid diet thereafter. (absolutely no straws or carbonated beverages) * Continue with? TPN for nutritional support during this time. * Monitor patient closely for any s/sx worsening infection/sepsis. * Trend WBC and temp. Case discussed with Dr. Jackson. Thank you for this consult. We will continue to follow along. If patient's clinical condition deteriorates, please contact Thoracic Surgery immediately. Fall Risk Details Current Medications: Current Medications Vancomycin HCl 750 mg/ Sodium (Chloride) 265 mls @ 265 mls/hr IV Q12H [facility] Last Admin: 10/06/21 08:09 Dose: 250 mls/hr Documented by: Multivitamins 14 ml/ Trace Metals 1.4 ml/ Amino Acids/Electrolytes 1,440 mls @ 60 mls/hr IV DAILY@1800 [facility] Stop: 10/06/21 17:59 Last Admin: 10/05/21 16:57 Dose: 60 mls/hr Documented by: Time Spent With Patient Time: Total time spent is greater than 50% in coordination of care (as documented) at patient's floor/unit and/or counseling patient: Time with patient: less than 15 minutes Quality Stroke Does the patient have a stroke diagnosis?: No VTE Prior VTE?: No VTE Risk Level:: Medical - moderate - high VTE Device Contraindication: Treatment Not Indicated VTE Drug Contraindication: N/A - Med Ordered
--- NOTE | 2021-10-06 10:59 | MHC.CLN ---
F/U PT RECEIVING TPN D15 AA5 TO 60ML/HR WITH 16ML OF 20% LIPIDS PROVIDES 1406 TOTAL KCALS (28KCALS/KG), 72G PROTEIN (1.4G/KG) DISCUSSED WITH PHARMACY ; REPLETE LYTES NEEDED FOLLOWING WITH TEAM
[2021-10-06 12:52] LABS: Basophils Absolute Auto 0.1 X10*3/uL (0.0-0.2); Basophils Percent Auto 2.8 % (0-2); Eosinophils Absolute Auto 0.2 X10*3/uL (0.0-0.4); Eosinophils Percent Auto 8.5 % (0-4); Hematocrit 40.3 % (37.0-47.0); Hemoglobin 13.2 g/dl (12.0-16.0); Imm Gran Abs Auto 0.01 X10*3/uL (0.00-0.03); Imm Gran Pct Auto 0.5 % (0.0-0.4); Lymphocytes Percent Auto 47.4 % (20-40); MANUAL DIFF FLAG SCAN; Mean Corpuscular HGB Conc 32.8 g/dl (31.0-35.0); Mean Corpuscular Hemoglobin 32.4 pg (27.0-33.0); Mean Corpuscular Volume 98.8 fL (80.0-98.0); Monocytes Absolute Auto 0.3 X10*3/uL (0.1-1.2); Monocytes Percent Auto 12.8 % (2-11); Neutrophils Absolute Auto 0.6 x10*3/uL (2.0-8.3); Platelet Count 187 X10*3/uL (160-400); Red Blood Count 4.08 X10*6/uL (4.20-5.50); Red Cell Distribution Width 14.2 % (11.0-16.0); SCAN SMEAR FLAG 1
[2021-10-06 12:53] LABS: White Blood Count 2.1 X10*3/uL (4.8-10.8)
[2021-10-06 13:11] LABS: Anion Gap 8 (12-20); Blood Urea Nitrogen 11 mg/dL (9-16); Calcium 8.1 mg/dL (8.4-10.2); Carbon Dioxide 26 mmol/L (22-29); Chloride 105 mmol/L (96-108); Estimated Glomerular Filt Rate > 60; Glucose Random 97 mg/dL (60-115); Magnesium 2.1 mg/dL (1.6-2.6); Phosphorus 3.5 mg/dL (2.7-4.5); Sodium 135 mmol/L (135-145)
[2021-10-06 13:13] LABS: SLIDE REVIEW VERIFIED
--- NOTE | 2021-10-06 14:37 | MHC.CM.PN ---
[facility] ELLIOTT ORTIZ ([phone]) CALLED FOR PATIENT UPDATES. ELLIOTT WILL CALL AGAIN TOMORROW IN HOPES OF OBTAINING BARIUM SWALLOW RESULTS
--- NOTE | 2021-10-06 16:46 | HO.PM.IMPN ---
Subjective Subjective Date of Service: 10/07/21 Interval History: Awake alert this morning, barium study is unsuccessful, no overnight fever chills, blood pressure remains soft, but stable, no other acute issues overnight. Review of Systems no fever or any abdominal pain upon palpation. Review of Systems: Yes all other systems are reviewed and are negative Physical Exam Vital Signs: Vital Signs: Last Vital Signs Temp 97.6 F 10/06/21 16:00 Pulse 68 10/06/21 16:00 Resp 16 10/06/21 16:00 BP 107/53 L 10/06/21 16:00 Pulse Ox 100 10/06/21 16:00 BMI result Body Mass Index 21.5 ?Gen:? Awake alert, no acute distress, Her sister ruth at bedside. Neck: supple Lungs: clear to auscultation bilaterally Heart: regular rate and rhythm, no murmurs Abd: soft, non-tender, non-distended Ext: no edema or cyanosis Skin: warm/well-perfused,no subcutaneous emphysema palpable Neuro:? Awake, alert, in no distress Psych: impaired insight Objective Data Active Medications Vancomycin HCl 750 mg/ Sodium (Chloride) 265 mls @ 265 mls/hr IV Q12H [facility] Last Infusion: 10/06/21 13:21 Dose: 0 mls/hr Documented by: NEY Multivitamins 14 ml/ Trace Metals 1.4 ml/ Amino Acids/Electrolytes 1,440 mls @ 60 mls/hr IV DAILY@1800 [facility] Stop: 10/06/21 17:59 Last Admin: 10/05/21 16:57 Dose: 60 mls/hr Documented by: ZHOU-RAHEEL Multivitamins 14 ml/ Trace Metals 1.4 ml/ Amino Acids/Electrolytes 1,440 mls @ 60 mls/hr IV DAILY@1800 [facility] Stop: 10/07/21 17:59 Fat Emulsion Intravenous (Intralipid) 192 mls @ 16 mls/hr IV DAILY@1800 [facility] Stop: 10/07/21 05:59 Labs CBC & Chem 7: 10/06/21 12:46 10/06/21 19:33 Labs: Laboratory Results - last 24 hr 10/03/21 10/05/21 10/06/21 15:40 16:28 12:45 MCV MCH MCHC RDW Plt Count MPV Immature Gran % (Auto) Neut % (Auto) Lymph % (Auto) [place] % (Auto) Eos % (Auto) Baso % (Auto) Lymph # (Auto) [place] # (Auto) Eos # (Auto) Baso # (Auto) Abs Immat Gran (auto) Absolute Neuts (auto) Absolute Nucleated RBC Nucleated RBC % (auto) Smear Tech's Comments Smear Path Review Anion Gap 8 L Estim Creat Clear Calc 84.0 Estimated GFR > 60 Random Glucose 97 Calcium 8.1 L Phosphorus 3.5 Magnesium 2.1 Blood Type O Positive Antibody Screen NEGATIVE 10/06/21 12:46 MCV 98.8 H MCH 32.4 MCHC 32.8 RDW 14.2 Plt Count 187 MPV 10.0 Immature Gran % (Auto) 0.5 H Neut % (Auto) 28.0 L Lymph % (Auto) 47.4 H [place] % (Auto) 12.8 H Eos % (Auto) 8.5 H Baso % (Auto) 2.8 H Lymph # (Auto) 1.0 L [place] # (Auto) 0.3 Eos # (Auto) 0.2 Baso # (Auto) 0.1 Abs Immat Gran (auto) 0.01 Absolute Neuts (auto) 0.6 L Absolute Nucleated RBC 0.000 Nucleated RBC % (auto) 0.0 Smear Tech's Comments VERIFIED Smear Path Review Anion Gap Estim Creat Clear Calc Estimated GFR Random Glucose Calcium Phosphorus Magnesium Blood Type Antibody Screen Assessment and Plan (1) Leukopenia: Status: Acute (2) Esophageal perforation: Status: Acute (3) Pneumomediastinum: Status: Acute Assessment and Plan: 41yo F longterm 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, no other medical problems, sent in for reported tonic-clonic movements though no seizure history [but 2 visits to [facility] ED in last 3 mo for syncope] admitted for hypotension,found to have extensive pneumomediastinum with evidence of esophageal perforation 1. esophageal perforation/ pneumomediastinum ? No acute issues overnight,denies chest pain, no shortness of breath, no overnight fever chills, remains hemodynamically stable with soft BP ? Continue strict NPO ? Continue IV vancomycin day 7, off IV Zosyn, and IV fluconazole, TPN has PICC line placed on 10/02/21 ? 1/2? blood culture likely Corynebacterium unlikely pathogen ? Renal functions stable WBC down to 2.1 slighty better than yesterday, normal LFTs ? Echo showed EF 60-65%, no aortic valve stenosis noted, normal diastolic function ? Discussed with Thoracics surgery: Barium swallow patient could not able to participate, refused to drink contrast. Discussed with thoracic surgery and patient sister in detail - plan is for clear liquids, sister understand above management in detail but want to try clears see if patient tolerates. Risks discussed with her sister miss almendarez in detail. 2. leukopenia ?? Noted to have drop in WBC,ANC 0.2 dc iv zosyn/diflucan will repeat CBC at a.m. will take neutropenic precaution 3. Hypotension - not septic, soft BP likely baseline 4. that you want hypoK - repleted 5.possible seizure activity: - no recurrent seizures noted, continue seizure precautions ?? seen by psych, patient found to have no decision-making capacity, therefore invoked healthcare proxy mother and sister are both healthcare proxys [phone]? and her sister Ruth # [phone]. # VTE ppx - SCDs, Quality Stroke Does the patient have a stroke diagnosis?: No VTE Prior VTE?: No VTE Risk Level:: Medical - moderate - high VTE Device Contraindication: Treatment Not Indicated VTE Drug Contraindication: N/A - Med Ordered
[2021-10-06] MEDS: Fat Emulsions 20% 250 ML 16 ML IV (18:12)
[2021-10-06 20:01] LABS: Creatinine Clr Calc Pharmacy 88.2; Estimated Glomerular Filt Rate > 60
[2021-10-06 20:08] LABS: Vancomycin Trough 13.6 mcg/mL (10.0-20.0)
[2021-10-07] VITALS (7 sets, daily range): BP systolic 84–109; BP diastolic 48–64; PULSE 66–89; RESP 15–18; TEMP 36.2–36.9; O2SAT 96–100
--- NOTE | 2021-10-07 07:01 | PC.NURSE ---
pt refused morning labs this morning, Dr. Amaro aware.
[2021-10-07] MEDS: vancomycin HCL 750 MG in 0.9 % Sodium Chloride 250 ML 250 MG IV ×2 (07:08→19:23)
--- NOTE | 2021-10-07 08:13 | HO.PM.IMPN ---
Subjective Subjective Date of Service: 10/08/21 Interval History: pneumomediasteum, ? esophageal tear Review of Systems seems comfortable, wants to sleep. Could able to tolerate some clears today with the help of her sister. No fever or new events overnight as per staff. Physical Exam Vital Signs: Vital Signs: Last Vital Signs Temp 97.6 F 10/07/21 07:39 Pulse 66 10/07/21 07:39 Resp 17 10/07/21 07:39 BP 105/55 L 10/07/21 07:39 Pulse Ox 99 10/07/21 07:39 BMI result Body Mass Index 21.5 ?Gen:? Awake alert, no acute distress,? Her sister erickson at bedside feeding her. Lungs: clear to auscultation bilaterally Heart: regular rate and rhythm, no murmurs Abd: soft, non-tender, non-distended Ext: no edema or cyanosis Skin: warm/well-perfused,no subcutaneous emphysema palpable Neuro:? Awake, alert, in no distress Psych: impaired insight Objective Data Active Medications Vancomycin HCl 750 mg/ Sodium (Chloride) 265 mls @ 265 mls/hr IV Q12H [facility] Last Admin: 10/07/21 07:08 Dose: 250 mls/hr Documented by: YOU Multivitamins 14 ml/ Trace Metals 1.4 ml/ Amino Acids/Electrolytes 1,440 mls @ 60 mls/hr IV DAILY@1800 [facility] Stop: 10/07/21 17:59 Last Admin: 10/06/21 18:12 Dose: 60 mls/hr Documented by: PAT Labs CBC & Chem 7: 10/08/21 08:32 10/08/21 06:46 Labs: Laboratory Results - last 24 hr 10/06/21 10/06/21 10/06/21 12:45 12:46 19:33 MCV 98.8 H MCH 32.4 MCHC 32.8 RDW 14.2 Plt Count 187 MPV 10.0 Immature Gran % (Auto) 0.5 H Neut % (Auto) 28.0 L Lymph % (Auto) 47.4 H Clar[place] % (Auto) 12.8 H Eos % (Auto) 8.5 H Baso % (Auto) 2.8 H Lymph # (Auto) 1.0 L Clar[place] # (Auto) 0.3 Eos # (Auto) 0.2 Baso # (Auto) 0.1 Abs Immat Gran (auto) 0.01 Absolute Neuts (auto) 0.6 L Absolute Nucleated RBC 0.000 Nucleated RBC % (auto) 0.0 Smear Tech's Comments VERIFIED Anion Gap 8 L Estim Creat Clear Calc 84.0 88.2 Estimated GFR > 60 > 60 Random Glucose 97 Calcium 8.1 L Phosphorus 3.5 Magnesium 2.1 Vancomycin Trough 10/06/21 19:33 MCV MCH MCHC RDW Plt Count MPV Immature Gran % (Auto) Neut % (Auto) Lymph % (Auto) Clar[place] % (Auto) Eos % (Auto) Baso % (Auto) Lymph # (Auto) Clarion # (Auto) Eos # (Auto) Baso # (Auto) Abs Immat Gran (auto) Absolute Neuts (auto) Absolute Nucleated RBC Nucleated RBC % (auto) Smear Tech's Comments Anion Gap Estim Creat Clear Calc Estimated GFR Random Glucose Calcium Phosphorus Magnesium Vancomycin Trough 13.6 Assessment and Plan (1) Leukopenia: Status: Acute (2) Esophageal perforation: Status: Acute (3) Pneumomediastinum: Status: Acute Assessment and Plan: 41yo F [facility] 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 esophageal perforation/ pneumomediastinum ? No acute issues overnight,denies chest pain, no shortness of breath, no overnight fever chills, remains hemodynamically stable with soft BP ? Continue strict NPO ? Continue IV vancomycin day 7, off? IV Zosyn, and IV fluconazole, TPN has PICC line placed on 10/02/21 ? 1/2? blood culture likely Corynebacterium unlikely pathogen ? Renal functions stable WBC down to 2.1 slighty better than yesterday, normal LFTs ? Echo showed EF 60-65%, no aortic valve stenosis noted, normal diastolic function ? Discussed with Thoracics surgery:? Barium swallow patient could not able to participate, refused to drink contrast. ? Discussed with thoracic surgery and patient sister in detail - plan is for clear liquids, sister feeding clears to her. 2. leukopenia ?? Noted to have drop in WBC 1.9 , repeat CBC at a.m. will take neutropenic precaution 3. Hypotension - not septic, soft BP likely baseline. continue to moniter 4. that you want hypoK - repleted 5.possible seizure activity: - no recurrent seizures noted, continue seizure precautions ?? seen by psych, patient found to have no decision-making capacity, therefore invoked healthcare proxy mother and sister are both healthcare proxys [phone]? and her sister Erickson # [phone]. # VTE ppx - SCDs, Quality Stroke Does the patient have a stroke diagnosis?: No VTE Prior VTE?: No VTE Risk Level:: Medical - moderate - high VTE Device Contraindication: Treatment Not Indicated VTE Drug Contraindication: N/A - Med Ordered
[2021-10-07 10:10] LABS: Hematocrit 34.9 % (37.0-47.0); Hemoglobin 11.9 g/dl (12.0-16.0); Mean Corpuscular HGB Conc 34.1 g/dl (31.0-35.0); Mean Corpuscular Hemoglobin 33.1 pg (27.0-33.0); Mean Corpuscular Volume 96.9 fL (80.0-98.0); Mean Platelet Volume 10.7 fL (9.4-12.3); Platelet Count 209 X10*3/uL (160-400)
[2021-10-07 10:15] LABS: Anion Gap 9 (12-20); Blood Urea Nitrogen 12 mg/dL (9-16); Calcium 7.9 mg/dL (8.4-10.2); Carbon Dioxide 26 mmol/L (22-29); Chloride 105 mmol/L (96-108); Estimated Glomerular Filt Rate > 60; Glucose Random 103 mg/dL (60-115); Potassium 4.2 mmol/L (3.3-5.1); Sodium 136 mmol/L (135-145)
[2021-10-07 10:22] LABS: White Blood Count 1.9 X10*3/uL (4.8-10.8)
[2021-10-07 11:05] LABS: Magnesium 2.1 mg/dL (1.6-2.6); Phosphorus 3.8 mg/dL (2.7-4.5)
--- NOTE | 2021-10-07 13:49 | MHC.CLN ---
F/U PT RECEIVING TPN D15 AA5 TO 60ML/HR WITH 16 ML OF 20% LIPIDS. PROVIDES 1406 TOTAL KCALS (28 KCALS/KG), 72 G PROTEIN (1.4G/KG) DISCUSSED WITH PHARMACY; REPLETE LYTES NEEDED. DIET=CLEAR LIQUIDS PER MD DISCUSSION WITH HEALTHCARE PROXY/SISTER. TAKING CLEAR LIQUIDS FROM SISTER. NOT A SIGNIFICANT SOURCE OF CALORIES/NUTRITION. CONTINUE TPN, FOLLOWING WITH TEAM.
[2021-10-07 13:51] LABS: Alanine Aminotransferase 17 U/L (0-31); Albumin Level 2.7 g/dL (3.5-5.0); Alkaline Phosphatase 64 U/L (39-117); Aspartate Amino Transferase 27 U/L (5-31); Bilirubin Direct 0.2 mg/dL (0.0-0.5); Bilirubin Total 0.3 mg/dL (0.0-1.0); Total Protein 5.8 g/dL (6.5-8.0)
[2021-10-07 13:58] LABS: Band Neutrophils Percent 6 % (3-5); Basophils Percent Manual 1 % (0-2); Eosinophils Absolute Manual 0.2 X10*3/uL (0.0-0.4); Eosinophils Percent Manual 9 % (0-4); Lymphocytes Percent Manual 53 % (20-40); Monocytes Absolute Manual 0.2 X10*3/uL (0.1-1.2); Monocytes Percent Manual 8 % (2-11); Neutrophils Absolute Manual 0.6 X10*3/uL (2.0-8.3); Neutrophils Percent Manual 23 % (45-73)
[2021-10-07 13:59] LABS: RBC Morphology NORMAL
[2021-10-07 14:00] LABS: Platelet Estimate NORMAL (NORMAL); Platelet Morphology Comment NORMAL
--- NOTE | 2021-10-07 14:10 | MHC.CM.PN ---
nurse corrections caseworker [facility] medical record reviewed along with case discussed on multiple disciplianry rounds. patient is from a [facility] SENIOR LIVING RESIDENT WITH TRISOMY, SENT IN WITH REPORTS OF TONIC CLONIC MOVEMENTS THROUGH NO SEIXURE HX PER DOCUMENTSTION EHOLENA HAD TWO VISITS IN THE LAST THREE MONTH FOR SYNCOPE, ADMITTED THIS ADMISSION FOR HYPOTENSION AND PNEUMOMEDIASTINUM WITH EVIDENCE OF ESOPHAGEAL PERFORATION. PER DOCUMENTATION EVALUATED BY PSYCH FOUND TO HAVE NO DECISION MAKING COMPACITY INVOKED HEALTH CARE PROXY HER KOTHER AND SISTER Assessment and Plan Assessment and Plan: 41yo F shelter 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, no other medical problems, sent in for reported tonic-clonic movements though no seizure history [but 2 [place] [facility] [place] last 3 mo for syncope] admitted for hypotension,found to have extensive pneumomediastinum with evidence of esophageal perforation 1. esophageal perforation/ pneumomediastinum ? No acute issues overnight,denies chest pain, no shortness of breath, no overnight fever chills, remains hemodynamically stable with soft BP ? Continue strict NPO ? Continue IV vancomycin day 7, off? IV Zosyn, and IV fluconazole, TPN has PICC line placed on 10/02/21 ? 1/2? blood culture likely Corynebacterium unlikely pathogen ? Renal functions stable WBC down to 2.1 slighty better than yesterday, normal LFTs ? Echo showed EF 60-65%, no aortic valve stenosis noted, normal diastolic function ? Discussed with Thoracics surgery:? Barium swallow patient could not able to participate, refused to drink contrast. ? Discussed with thoracic surgery and patient sister in detail - plan is for clear liquids, sister feeding clears to her. 2. leukopenia ?? Noted to have drop in WBC 1.9 , repeat CBC at a.m. will take neutropenic precaution 3. Hypotension - not septic, soft BP likely baseline. continue to moniter 4. that you want hypoK - repleted 5.possible seizure activity: - no recurrent seizures noted, continue seizure precautions ?? seen by psych, patient found to have no decision-making capacity, therefore invoked healthcare proxy mother and sister are both healthcare proxys [phone]? and her sister Ruth # [phone]. # VTE ppx - SCDs,
--- NOTE | 2021-10-07 14:17 | MHC.CM.PN ---
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 patient is from a [facility] RESIDENT WITH TRISOMY, SENT IN WITH REPORTS OF [facility] PER DOCUMENTSTION EHAS HAD TWO VISITS IN THE LAST THREE MONTH FOR SYNCOPE, ADMITTED THIS ADMISSION FOR HYPOTENSION AND PNEUMOMEDIASTINUM WITH EVIDENCE OF ESOPHAGEAL PERFORATION. PER DOCUMENTATION EVALUATED BY PSYCH FOUND TO HAVE NO DECISION MAKING COMPACITY INVOKED HEALTH CARE PROXY HER MOTHER [phone] AND HER SISTER ANGELICA [phone] PLAN CONTINUE IV ANTIBIOPTICS,., ZOSYN FLUCONAZIOLE TPN AND PIC LINE PLACED 10/02/21 DISCHARGE PLAN -RETURN BACK TO THE [facility] DIRECTOR Hilary [phone] dds worker renny Sung [phone] LALIT TINEO MANAGENT FOLLOW UP FOR FINALIZED DISCHARGE NEDS - ,
--- NOTE | 2021-10-07 15:34 | P.PNTS_ITS ---
Subjective Subjective Date of Service: 10/07/21 Interval history: Patient was seen and examined earlier this morning. Continues to refuse to answer any questions and her only responses I am fine. According to nursing patient has not yet tried any sips of clears as she is approved for a clear liquid diet with no carbonation or straws. She continues on TPN and IV vancomycin. She is also refusing any and all procedures such as her barium swallow or chest CT scan. Physical Exam Vital Signs: Vital Signs: Last Vital Signs Temp 98.5 F 10/07/21 15:12 Pulse 72 10/07/21 15:12 Resp 15 10/07/21 15:12 BP 109/52 L 10/07/21 15:12 Pulse Ox 98 10/07/21 15:12 BMI result Body Mass Index 21.5 Const: General: comfortable, no acute distress and lethargic Orientation/c onsciousness: lethargic HENMT: Head: Yes atraumatic Eyes: Conjunctivae: conjunctivae normal Sclerae: sclerae normal Neck: Neck: Yes trachea midline, Yes supple and Yes other ( No subcutaneous emphysema noted on physical exam.) Chest: Other: Unable to appreciate any subcutaneous emphysema or crepitus along anterior, left, right or posterior chest wall Resp: Other: breath sounds are clear to auscultation bilaterally throughout all lung goodrich with no adventitious sounds such as wheezes or rhonchi. Effort & Inspection: normal respiratory effort Cardio: Jugular venous distension: no JVD Rate: regular rate GI: Inspection: Yes normal to inspection Palpation (GI): Soft to palpation and nontender Auscultation: normal bowel sounds Extrem: General: Yes normal to inspection and Yes no clubbing, cyanosis or edema Procedures Date of Service Date of Service: 10/07/21 Progress Note: A&P Assessment and plan (1) Pneumomediastinum: Status: Acute Assessment and Plan: Patient is a 41 year old female with Down Syndrome presenting [facility] the hospital [facility] after tonic-clonic movements concerning for seizure.? During workup she was found to have pneumomediastinum and evidence of small esophageal perforation.? Unknown cause as patient denies any recent retching, vomiting, or dysphasia although she is a poor historian. * Patient continues to remain hemodynamically stable.? * S/p PICC line placement .CBC reveals continued leukopenia 2.0.. Afebrile * IV abx Zosyn, and Diflucan were discontinued by medicine team due to leukopenia.Remains on vancomycin IV * Patient seen by psych and deemed not competent in making medical decisions. Patient's HCP will need to be contact to assist with any medical decision making. * At this time, re: her pneumomediastinum and possible esophageal perforation we are recommending continuing conservative management. * A barium swallow and a dry CT scan of the chest was ordered however patient continues to refuse care Able to make her own medical decisions it would be impossible to force a patient to perform a barium swallow. * Her n.p.o. diet was advanced to clears only (no straws or carbonated beverages),And is refusing to trial any clear liquids.According to nursing patient has not yet had given 1 sip of water since her diet was advanced 2 days ago. * Continue with? TPN for nutritional support during this time. * Monitor patient closely for any s/sx worsening infection/sepsis. * Trend WBC and temp. Case discussed with Dr. Jackson. Thank you for this consult. We will continue to follow along. If patient's clinical condition deteriorates, please contact Thoracic Surgery immediately. Fall Risk Details Current Medications: Current Medications Vancomycin HCl 750 mg/ Sodium (Chloride) 265 mls @ 265 mls/hr IV Q12H [facility] Last Infusion: 10/07/21 08:26 Dose: Infused Documented by: Multivitamins 14 ml/ Trace Metals 1.4 ml/ Amino Acids/Electrolytes 1,440 mls @ 60 mls/hr IV DAILY@1800 [facility] Stop: 10/07/21 17:59 Last Admin: 10/06/21 18:12 Dose: 60 mls/hr Documented by: Multivitamins 14 ml/ Trace Metals 1.4 ml/ Amino Acids/Electrolytes 1,440 mls @ 60 mls/hr IV DAILY@1800 [facility] Stop: 10/08/21 17:59 Fat Emulsion Intravenous (Intralipid) 192 mls @ 16 mls/hr IV DAILY@1800 [facility] Stop: 10/08/21 05:59 Time Spent With Patient Time: Total time spent is greater than 50% in coordination of care (as documented) at patient's floor/unit and/or counseling patient: Time with patient: 15 - 24 minutes Quality Stroke Does the patient have a stroke diagnosis?: No VTE Prior VTE?: No VTE Risk Level:: Medical - moderate - high VTE Device Contraindication: Treatment Not Indicated VTE Drug Contraindication: N/A - Med Ordered
[2021-10-07] MEDS: Fat Emulsions 20% 250 ML 16 ML IV (17:09)
[2021-10-08 03:55] VITALS: BP 108/53; PULSE 70; RESP 18; TEMP 36.5; O2SAT 100
[2021-10-08 07:11] LABS: Anion Gap 9 (12-20); Blood Urea Nitrogen 12 mg/dL (9-16); Calcium 8.2 mg/dL (8.4-10.2); Carbon Dioxide 26 mmol/L (22-29); Chloride 106 mmol/L (96-108); Creatinine Clr Calc Pharmacy 85.3; Estimated Glomerular Filt Rate > 60; Glucose Random 80 mg/dL (60-115); Potassium 3.8 mmol/L (3.3-5.1); Sodium 137 mmol/L (135-145)
[2021-10-08 07:39] VITALS: BP 95/50; PULSE 75; RESP 16; TEMP 36.6; O2SAT 99
[2021-10-08 07:53] LABS: Vancomycin Trough 12.1 mcg/mL (10.0-20.0)
--- NOTE | 2021-10-08 08:17 | P.PNTS_ITS ---
Subjective Subjective Date of Service: 10/13/21 Interval history: Patient seen and examined this am. Doing well overall. No events overnight. Tolerating 50% of her clear liquid diet without difficulty. Yesterday was the first day she was agreeable in taking clear liquids for lunch and dinner per nursing with the assistance of her sister. Physical Exam Vital Signs: Vital Signs: Last Vital Signs Temp 97.9 F 10/08/21 07:39 Pulse 75 10/08/21 07:39 Resp 16 10/08/21 07:39 BP 95/50 L 10/08/21 07:39 Pulse Ox 99 10/08/21 07:39 BMI result Body Mass Index 21.5 Const: General: cooperative, healthy appearing, comfortable and no acute distress Nutritional Appearance: well nourished Orientation/consciousness: oriented to person Limitations: no limitations and behavioral limitations HENMT: Head: Yes normal to inspection, Yes normocephalic and Yes atraumatic Mouth: Normal oral and palatal mucosa present and other (Dry oral mucosae) Eyes: Visual Loera: normal visual loera by confrontation Alignment and Position: alignment normal Periorbital: periorbital findings normal Conjunctivae: conjunctivae normal Sclerae: sclerae normal Pupils: Equal, round and reactive pupils present and Pupil accommodation reflex normal EOM: EOMs intact bilaterally Neck: Neck: Yes normal visual inspection, Yes full ROM, Yes no lymphadenopathy, Yes trachea midline, Yes supple, No lymphadenopathy, No tender, No tracheal deviation and Yes other ( No subcutaneous emphysema noted on physical exam.) Lymphatic: no lymphadenopathy noted Chest: Other: Unable to appreciate any subcutaneous emphysema or crepitus along anterior, left, right or posterior chest wall Chest palpation & inspection: normal inspection of the chest and no crepitus Resp: Other: breath sounds are clear to auscultation bilaterally throughout all lung loera with no adventitious sounds such as wheezes or rhonchi. Effort & Inspection: normal respiratory effort, able to speak in complete sentences, normal respiratory pattern, no audible wheezes, no cough, no pursed lip breathing, no respiratory distress, no stridor, not tachypneic, no tracheal deviation and other (Patient speaking in full sentences on room air. Chest tube to *waterseal/mota) Auscultation: clear to auscultation bilaterally Cardio: Jugular venous distension: no JVD Palpation: normal PMI Rate: regular rate Rhythm: regular rhythm Heart sounds: S1 normal heart sound present, S2 normal heart sound present, no click, no gallops, no murmurs and no rubs GI: Inspection: Yes normal to inspection Palpation (GI): Soft to palpation and nontender Auscultation: normal bowel sounds : General: Yes no CVA tenderness Back/Spine/Pelvis: Back: no CVA tenderness Thoracic/Lumbar Spine: thoracic and lumbar spine normal to inspection Skin: General skin exam: no rashes or lesions noted and dry skin Lesions: no lesions Rashes: no rashes Neuro: General: oriented to person and gait normal Cranial nerves: Yes Equal, round and reactive pupils present Extrem: General: Yes normal to inspection, Yes full ROM, Yes capillary refill normal, Yes no clubbing, cyanosis or edema, Yes no pedal edema and Yes normal gait Psych: Appearance: grossly normal and well kempt Mental Status: mental status grossly normal Speech and movement: Normal speech and movement present and Clear speech present Affect: normal affect Attitude: cooperative Thought process: Normal thought process present Thought content: Normal thought content present Procedures Date of Service Date of Service: 10/08/21 Progress Note: A&P Assessment and plan (1) Leukopenia: Status: Acute (2) Esophageal perforation: Status: Acute (3) Pneumomediastinum: Status: Acute Assessment and Plan: Patient is a 41 year old female with Down Syndrome presenting to the hospital from her longterm after tonic-clonic movements concerning for seizure.? During workup she was found to have pneumomediastinum and evidence of small esophageal perforation.? Unknown cause as patient denies any recent retching, vomiting, or dysphasia although she is a poor historian. * Patient continues to remain hemodynamically stable. Pressures remain soft but this has been baseline for her. * S/p PICC line placement on 10/02/21 . WBC 2.4 today. Up from yesterday. * Patient remains on IV Vancomycin. IV Zosyn and Diflucan have been discontinued due to neutropenia * Patient seen by psych and deemed not competent in making medical decisions. Patient's HCP will need to be contact to assist with any medical decision making. Sister has been assisting with patient care and decision making. * At this time, re: her pneumomediastinum and possible esophageal perforation we are recommending continuing conservative management. * Patient did not tolerate barium swallow and spit out the barium. Unable to perform test accurately. On exam, patient looks aseptic appearing and denies nausea, vomiting, or dry heaves. Need to continue to monitor closely and ensure patient remains afebrile and does not develop leukocytosis. * Since she could not tolerate further testing to assess for esophageal perforation following 7 days of NPO status, patient may progress to clear liquids. Will start on full liquids once she has tolerated clears for 3 full days. NO STRAWS OR CARBONATED FLUIDS. * Continue with conservative management with rest, PRN analgesia if needed, and avoidance of maneuvers that increase pulmonary pressure such as forced expiration or Valsalva maneuvers * Continue with? TPN for nutritional support during this time until patient is able to take adequate PO intake. Nursing should be documenting how much of her meals she is tolerating. * Monitor patient closely for any s/sx worsening infection/sepsis. * Trend WBC and temp. * Bergman catheter: in place Case discussed with Dr. Jackson. Thank you for this consult. We will continue to follow along. If patient's clinical condition deteriorates, please contact Thoracic Surgery immediately. Fall Risk Details Current Medications: Current Medications Multivitamins 14 ml/ Trace Metals 1.4 ml/ Amino Acids/Electrolytes 1,440 mls @ 60 mls/hr IV DAILY@1800 [facility] Stop: 10/08/21 17:59 Last Admin: 10/07/21 17:09 Dose: 60 mls/hr Documented by: Vancomycin HCl 750 mg/ Sodium (Chloride) 265 mls @ 265 mls/hr IV Q12H [facility] Pharmacy Consult (Consult Rx Vancomycin Dosing) 1 each MISCELLANE DAILY PRN PRN Reason: Consult order Time Spent With Patient Time: Total time spent is greater than 50% in coordination of care (as documented) at patient's floor/unit and/or counseling patient: Time with patient: less than 15 minutes Quality Stroke Does the patient have a stroke diagnosis?: No VTE Prior VTE?: No VTE Risk Level:: Medical - moderate - high VTE Device Contraindication: Treatment Not Indicated VTE Drug Contraindication: N/A - Med Ordered
[2021-10-08] MEDS: vancomycin HCL 750 MG in 0.9 % Sodium Chloride 250 ML 265 MG IV ×2 (08:24→20:22)
[2021-10-08 08:47] LABS: Hematocrit 33.3 % (37.0-47.0); Hemoglobin 11.3 g/dl (12.0-16.0); Mean Corpuscular HGB Conc 33.9 g/dl (31.0-35.0); Mean Corpuscular Hemoglobin 32.8 pg (27.0-33.0); Mean Corpuscular Volume 96.8 fL (80.0-98.0); Mean Platelet Volume 10.7 fL (9.4-12.3); Platelet Count 229 X10*3/uL (160-400); Red Blood Count 3.44 X10*6/uL (4.20-5.50); Red Cell Distribution Width 14.2 % (11.0-16.0)
[2021-10-08 08:48] LABS: White Blood Count 2.4 X10*3/uL (4.8-10.8)
--- NOTE | 2021-10-08 08:54 | HO.PM.IMPN ---
Subjective Subjective Date of Service: 10/08/21 Interval History: esophgeal tear Review of Systems Patient denies any new complaints awake says I am fine Physical Exam Vital Signs: Vital Signs: Last Vital Signs Temp 97.9 F 10/08/21 07:39 Pulse 75 10/08/21 07:39 Resp 16 10/08/21 07:39 BP 95/50 L 10/08/21 07:39 Pulse Ox 99 10/08/21 07:39 BMI result Body Mass Index 21.5 Gen:? Awake alert, no acute distress,?sister erickson help for feeding Lungs: clear to auscultation bilaterally Heart: regular rate and rhythm, no murmurs Abd: soft, non-tender, non-distended Ext: no edema or cyanosis Skin: warm/well-perfused,no subcutaneous emphysema palpable Neuro:? Awake, alert, in no distress Psych: impaired insight Objective Data Active Medications Multivitamins 14 ml/ Trace Metals 1.4 ml/ Amino Acids/Electrolytes 1,440 mls @ 60 mls/hr IV DAILY@1800 [facility] Stop: 10/08/21 17:59 Last Admin: 10/07/21 17:09 Dose: 60 mls/hr Documented by: YOU Vancomycin HCl 750 mg/ Sodium (Chloride) 265 mls @ 265 mls/hr IV Q12H [facility] Last Admin: 10/08/21 08:24 Dose: 265 mls/hr Documented by: YOU Pharmacy Consult (Consult Rx Vancomycin Dosing) 1 each MISCELLANE DAILY PRN PRN Reason: Consult order Labs CBC & Chem 7: 10/08/21 08:32 10/08/21 06:46 Labs: Laboratory Results - last 24 hr 10/07/21 10/07/21 10/07/21 09:21 09:21 09:21 MCV 96.9 MCH 33.1 H MCHC 34.1 RDW 14.0 Plt Count 209 MPV 10.7 Absolute Nucleated RBC 0.000 Nucleated RBC % (auto) 0.0 Neutrophils % (Manual) 23 L Band Neutrophils % 6 H Lymphocytes % (Manual) 53 H Monocytes % (Manual) 8 Eosinophils % (Manual) 9 H Basophils % (Manual) 1 Abs Neuts (Manual) 0.6 L Lymphocytes # (Manual) 1.0 L Monocytes # (Manual) 0.2 Eosinophils # (Manual) 0.2 Platelet Estimate NORMAL Plt Morphology Comment NORMAL RBC Morphology NORMAL Anion Gap Cancelled 9 L Estim Creat Clear Calc Cancelled 93.0 Estimated GFR Cancelled > 60 Random Glucose Cancelled 103 Calcium Cancelled 7.9 L Phosphorus 3.8 Magnesium 2.1 Total Bilirubin 0.3 Direct Bilirubin 0.2 AST 27 D ALT 17 Alkaline Phosphatase 64 Total Protein 5.8 L Albumin 2.7 L Vancomycin Trough 10/08/21 10/08/21 10/08/21 06:46 06:46 08:32 MCV 96.8 MCH 32.8 MCHC 33.9 RDW 14.2 Plt Count 229 MPV 10.7 Absolute Nucleated RBC 0.000 Nucleated RBC % (auto) 0.0 Neutrophils % (Manual) Band Neutrophils % Lymphocytes % (Manual) Monocytes % (Manual) Eosinophils % (Manual) Basophils % (Manual) Abs Neuts (Manual) Lymphocytes # (Manual) Monocytes # (Manual) Eosinophils # (Manual) Platelet Estimate Plt Morphology Comment RBC Morphology Anion Gap 9 L Estim Creat Clear Calc 85.3 Estimated GFR > 60 Random Glucose 80 Calcium 8.2 L Phosphorus Magnesium Total Bilirubin Direct Bilirubin AST ALT Alkaline Phosphatase Total Protein Albumin Vancomycin Trough 12.1 Assessment and Plan (1) Leukopenia: Status: Acute (2) Esophageal perforation: Status: Acute (3) Pneumomediastinum: Status: Acute Assessment and Plan: 41yo F [facility] 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 esophageal perforation/ pneumomediastinum ? No acute issues overnight,denies chest pain, no shortness of breath, no overnight fever chills, remains hemodynamically stable with soft BP. vanco trough 12.1 ? Continue IV vancomycin day 07/09, off? IV Zosyn, and IV fluconazole, TPN has PICC line placed on 10/02/21 ? 1/2? blood culture likely Corynebacterium unlikely pathogen ? Renal functions stable WBC down to 2.4 slighty better than yesterday ? Echo showed EF 60-65%, no aortic valve stenosis noted, normal diastolic function ? Discussed with Thoracics surgery:? Barium swallow patient could not able to participate, refused to drink contrast. ? Discussed with thoracic surgery and patient sister in detail - plan is for clear liquids-clear for 1/4 days as per thoracic -then repat chest imaging and will discuss further with thoracic. ?she is taking clear since yesterday, we will take off tpn 2. leukopenia ?? in WBC 2.4 improving, repeat CBC at a.m., will take neutropenic precaution 3. Hypotension - not septic, soft BP likely baseline. continue to moniter 4. that you want hypoK - repleted 5.possible seizure activity: - no recurrent seizures noted, continue seizure precautions ?? seen by psych, patient found to have no decision-making capacity, therefore invoked healthcare proxy mother and sister are both healthcare proxys [phone]? and her sister Erickson # [phone]. # VTE ppx - SCDs, Quality Stroke Does the patient have a stroke diagnosis?: No VTE Prior VTE?: No VTE Risk Level:: Medical - moderate - high VTE Device Contraindication: Treatment Not Indicated VTE Drug Contraindication: N/A - Med Ordered
[2021-10-08 12:00] VITALS: BP 101/52; PULSE 65; RESP 16; TEMP 36.3; O2SAT 99
[2021-10-08 13:00] VITALS: O2SAT 99
[2021-10-08 15:08] VITALS: BP 102/56; PULSE 75; RESP 16; TEMP 36.7; O2SAT 100
[2021-10-08 19:36] VITALS: BP 93/49; PULSE 74; RESP 18; TEMP 36.4; O2SAT 100
[2021-10-09] VITALS (8 sets, daily range): BP systolic 97–135; BP diastolic 48–60; PULSE 66–88; RESP 14–18; TEMP 36.2–37.3; O2SAT 97–100; BMI 21.5
--- NOTE | 2021-10-09 06:42 | PC.NURSE ---
castellano catheter removed at 0630. pt educated to ring when she needs to go bathroom.
[2021-10-09 08:24] LABS: Baso%MD 2.1 %; Eos%MD 2.4 %; Hematocrit 33.9 % (37.0-47.0); Hemoglobin 11.4 g/dl (12.0-16.0); IG%MD 0.6 %; Lymph%MD 25.6 %; Mean Corpuscular HGB Conc 33.6 g/dl (31.0-35.0); Mean Corpuscular Hemoglobin 32.7 pg (27.0-33.0); Mean Corpuscular Volume 97.1 fL (80.0-98.0); Mean Platelet Volume 10.3 fL (9.4-12.3); Mono%MD 9.8 %; Neut%MD 59.5 %; Platelet Count 227 X10*3/uL (160-400); Red Blood Count 3.49 X10*6/uL (4.20-5.50); Red Cell Distribution Width 14.4 % (11.0-16.0); White Blood Count 3.3 X10*3/uL (4.8-10.8)
[2021-10-09 08:36] LABS: Blood Urea Nitrogen 8 mg/dL (9-16); Calcium 8.1 mg/dL (8.4-10.2); Creatinine Clr Calc Pharmacy 85.3; Estimated Glomerular Filt Rate > 60; Glucose Random 85 mg/dL (60-115)
[2021-10-09 08:43] LABS: Band Neutrophils Percent 1 % (3-5); Basophils Abs Manual 0.1 X10*3/uL (0.0-0.2); Basophils Percent Manual 3 % (0-2); Eosinophils Absolute Manual 0.1 X10*3/uL (0.0-0.4); Eosinophils Percent Manual 3 % (0-4); Lymphocytes Absolute Manual 0.9 X10*3/uL (1.2-4.9); Lymphocytes Percent Manual 26 % (20-40); Monocytes Absolute Manual 0.2 X10*3/uL (0.1-1.2); Monocytes Percent Manual 7 % (2-11); Neutrophils Percent Manual 60 % (45-73)
[2021-10-09 08:44] LABS: Hypochromasia 1+ (5-14) /OIF; Platelet Estimate NORMAL (NORMAL); Platelet Morphology Comment NORMAL; RBC Morphology NOTED
[2021-10-09 08:45] LABS: Ovalocytes 1+ (5-14) /OIF
[2021-10-09 08:47] LABS: Anion Gap 11 (12-20); Carbon Dioxide 25 mmol/L (22-29); Chloride 106 mmol/L (96-108); Potassium 3.7 mmol/L (3.3-5.1); Sodium 138 mmol/L (135-145)
--- NOTE | 2021-10-09 08:57 | P.PNTS_ITS ---
Subjective Subjective Date of Service: 10/10/21 Interval history: Patient was seen and examined this morning. Overall patient appears much less lethargic and weak. According to her and nursing she has been tolerating her clear liquid diet well and denies any concerning symptoms such as fever, chills, shortness of breath, dysphagia or odynophagia. Unable review remaining 12 point review of systems due to patient's reluctance to answer questions. Physical Exam Vital Signs: Vital Signs: Last Vital Signs Temp 99.2 F 10/09/21 08:00 Pulse 70 10/09/21 08:00 Resp 16 10/09/21 08:00 BP 109/53 L 10/09/21 08:00 Pulse Ox 99 10/09/21 08:00 BMI result Body Mass Index 21.5 Const: General: comfortable, no acute distress and lethargic Orientation/consciousness: lethargic HENMT: Head: Yes atraumatic Eyes: Conjunctivae: conjunctivae normal Sclerae: sclerae normal Neck: Neck: Yes trachea midline, Yes supple and Yes other ( No subcutaneous emphysema noted on physical exam.) Chest: Other: Unable to appreciate any subcutaneous emphysema or crepitus along anterior, left, right or posterior chest wall Resp: Other: breath sounds are clear to auscultation bilaterally throughout all lung goodrich with no adventitious sounds such as wheezes or rhonchi. Effort & Inspection: normal respiratory effort Cardio: Jugular venous distension: no JVD Rate: regular rate GI: Inspection: Yes normal to inspection Palpation (GI): Soft to palpation and nontender Auscultation: normal bowel sounds Extrem: General: Yes normal to inspection and Yes no clubbing, cyanosis or edema Procedures Date of Service Date of Service: 10/09/21 Progress Note: A&P Assessment and plan (1) Leukopenia: Status: Acute (2) Esophageal perforation: Status: Acute (3) Pneumomediastinum: Status: Acute Assessment and Plan: Patient is a 41 year old female with Down Syndrome presenting to the hospital from her senior living after tonic-clonic movements concerning for seizure.? During workup she was found to have pneumomediastinum and evidence of small esophageal perforation.? Unknown cause as patient denies any recent retching, vomiting, or dysphasia although she is a poor historian. * Patient continues to remain hemodynamically stable. Pressures remain soft but this has been baseline for her. * S/p PICC line placement on 10/02/21 . WBC 3.3 today. Up from yesterday. * Patient remains on IV Vancomycin. IV Zosyn and Diflucan have been discontinued due to leukopenia * Patient seen by psych and deemed not competent in making medical decisions. Patient's HCP will need to be contact to assist with any medical decision making. Sister has been assisting with patient care and decision making. * At this time, re: her pneumomediastinum and possible esophageal perforation we are recommending continuing conservative management. * Patient did not tolerate barium swallow and spit out the barium on 10/06/21. Unable to perform test accurately. On exam, patient looks aseptic appearing and denies nausea, vomiting, or dry heaves. Need to continue to monitor closely and ensure patient remains afebrile and does not develop leukocytosis. * Since she could not tolerate further testing to assess for esophageal perforation following 7 days of NPO status, patient may continue on clear liquids. Will start on full liquids once she has tolerated clears for 3 full days. * Will plan for chest x-ray tomorrow to assess for any developing pleural effusion. If no effusion will advance to full liquids. * NO STRAWS OR CARBONATED FLUIDS. * Continue with conservative management with rest, PRN analgesia if needed, and avoidance of maneuvers that increase pulmonary pressure such as forced expiration or Valsalva maneuvers * TPN has been stopped due to her toleration of clear liquid diet. * Monitor patient closely for any s/sx worsening infection/sepsis. * Trend WBC and temp. * Bergman catheter: in place Case discussed with Dr. Jackson. Thank you for this consult. We will continue to follow along. If patient's clinical condition deteriorates, please contact [facility] immediately. Fall Risk Details Current Medications: Current Medications Vancomycin HCl 750 mg/ Sodium (Chloride) 265 mls @ 265 mls/hr IV Q12H [facility] Last Infusion: 10/08/21 21:44 Dose: Infused Documented by: Pharmacy Consult (Consult Rx Vancomycin Dosing) 1 each MISCELLANE DAILY PRN PRN Reason: Consult order Time Spent With Patient Time: Total time spent is greater than 50% in coordination of care (as documented) at patient's floor/unit and/or counseling patient: Time with patient: 15 - 24 minutes Quality Stroke Does the patient have a stroke diagnosis?: No VTE Prior VTE?: No VTE Risk Level:: Medical - moderate - high VTE Device Contraindication: Treatment Not Indicated VTE Drug Contraindication: N/A - Med Ordered
[2021-10-09] MEDS: vancomycin HCL 750 MG in 0.9 % Sodium Chloride 250 ML 265 MG IV ×2 (09:45→20:10)
--- NOTE | 2021-10-09 09:53 | MHC.CLN ---
F/U TPN COMPLETED 10/08 THEN DISCONTINUED. TOLERATING CLEAR LIQUIDS PER MD NOTE. ADDING ENSURE CLEAR TID TO PROVIDE ADDITIONAL 720 KCAL, 24 G PROTEIN. IF TOLERATES CL X 3 FULL DAYS, MD PLANS TO START FULL LIQUIDS. UNABLE TO COMPLETE BARIUM SWALLOW ON 10/06. NO STRAWS OR CARBONATED BEVERAGES PER MD NOTE, DINING SERVICES AWARE. TEAM FOLLOWING FOR ESOPHAGEAL PERFORATION, DIET TOLERANCE.
--- NOTE | 2021-10-09 14:08 | P.PNIM_ITS ---
Subjective Subjective Date of Service: 10/09/21 Interval History: esophgeal tear Review of Systems Says am fine, no complaints otherwise speaks selectively. WBC improving, no fever tolerating clear liquids day 2 Physical Exam Vital Signs: Vital Signs: Last Vital Signs Temp 98.6 F 10/09/21 11:29 Pulse 66 10/09/21 11:29 Resp 18 10/09/21 11:29 BP 97/54 L 10/09/21 11:29 Pulse Ox 98 10/09/21 13:00 BMI result Body Mass Index 21.5 Gen:? Awake alert, no acute distress,?sister erickson help for feeding Lungs: clear to auscultation bilaterally Heart: regular rate and rhythm, no murmurs Abd: soft, non-tender, non-distended Ext: no edema or cyanosis Skin: warm/well-perfused,no subcutaneous emphysema palpable Neuro:? Awake, alert, in no distress Psych: impaired insight Objective Data Active Medications Vancomycin HCl 750 mg/ Sodium (Chloride) 265 mls @ 265 mls/hr IV Q12H [facility] Last Infusion: 10/09/21 10:45 Dose: 0 mls/hr Documented by: JORGE Pharmacy Consult (Consult Rx Vancomycin Dosing) 1 each MISCELLANE DAILY PRN PRN Reason: Consult order Labs CBC & Chem 7: 10/09/21 08:07 10/09/21 08:07 Labs: Laboratory Results - last 24 hr 10/09/21 10/09/21 08:07 08:07 MCV 97.1 MCH 32.7 MCHC 33.6 RDW 14.4 Plt Count 227 MPV 10.3 Absolute Nucleated RBC 0.000 Nucleated RBC % (auto) 0.0 Neutrophils % (Manual) 60 Band Neutrophils % 1 L Lymphocytes % (Manual) 26 Monocytes % (Manual) 7 Eosinophils % (Manual) 3 Basophils % (Manual) 3 H Abs Neuts (Manual) 2.0 Lymphocytes # (Manual) 0.9 L Monocytes # (Manual) 0.2 Eosinophils # (Manual) 0.1 Basophils # (Manual) 0.1 Platelet Estimate NORMAL Plt Morphology Comment NORMAL RBC Morphology NOTED Hypochromasia 1+ (5-14) Ovalocytes 1+ (5-14) Anion Gap 11 L Estim Creat Clear Calc 85.3 Estimated GFR > 60 Random Glucose 85 Calcium 8.1 L Assessment and Plan (1) Leukopenia: Status: Acute (2) Esophageal perforation: Status: Acute Assessment and Plan: 41yo F nursing home 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, no other medical problems, sent in for reported tonic-clonic movements though no seizure history [but 2 visits to [facility] in last 3 mo for syncope] admitted for hypotension,found to have extensive pneumomediastinum with evidence of esophageal perforation 1. esophageal perforation/ pneumomediastinum ? No acute issues overnight,denies chest pain, no shortness of breath, no o vernight fever chills, remains hemodynamically stable with soft BP. vanco trough 12.1 ? Continue IV vancomycin day 07/09, off? IV Zosyn, and IV fluconazole, TPN has PICC line placed on 10/02/21 ? 1/2? blood culture likely Corynebacterium unlikely pathogen ? Renal functions stable WBC down to 2.4 slighty better than yesterday ? Echo showed EF 60-65%, no aortic valve stenosis noted, normal diastolic f unction ? Discussed with Thoracics surgery:? Barium swallow patient could not able to participate, refused to drink contrast. ? Discussed with thoracic surgery and patient sister in detail - plan is for clear liquids-clear for 1/4 days as per thoracic -then repat chest imaging and will discuss further with thoracic. ?she is taking clear since yesterday, we will take off tpn 2. leukopenia ?? in WBC 2.4 improving, repeat CBC at a.m., will take neutropenic precaution 3. Hypotension - not septic, soft BP likely baseline. continue to moniter 4. that you want hypoK - repleted 5.possible seizure activity: - no recurrent seizures noted, continue seizure precautions ?? seen by psych, patient found to have no decision-making capacity, therefore invoked healthcare proxy mother and sister are both healthcare proxys [phone]? and her sister Erickson # [phone]. # VTE ppx - SCDs, Quality Stroke Does the patient have a stroke diagnosis?: No VTE Prior VTE?: No VTE Risk Level:: Medical - moderate - high VTE Device Contraindication: Treatment Not Indicated VTE Drug Contraindication: N/A - Med Ordered
--- NOTE | 2021-10-09 15:04 | MHC.CM.PN ---
Addendum entered by Zully Metcalf 10/09/21 15:05: CORRECTION: POSSIBLE RETURN Tuesday10/12/21 Original Note: PLAN IS REPEAT XRAY ON TUESDAY ADVANCE DIET AND POSSIBLE DC BACK TO [facility] ON Tuesday10/13/21
[2021-10-09 19:48] LABS: Vancomycin Trough 15.1 mcg/mL (10.0-20.0)
[2021-10-10] VITALS (13 sets, daily range): BP systolic 94–110; BP diastolic 49–74; PULSE 54–88; RESP 14–18; TEMP 36.5–37.1; O2SAT 96–100
[2021-10-10 05:55] LABS: Anion Gap 11 (12-20); Blood Urea Nitrogen 6 mg/dL (9-16); Calcium 8.3 mg/dL (8.4-10.2); Carbon Dioxide 25 mmol/L (22-29); Chloride 108 mmol/L (96-108); Estimated Glomerular Filt Rate > 60; Glucose Random 89 mg/dL (60-115); Potassium 3.6 mmol/L (3.3-5.1); Sodium 140 mmol/L (135-145)
--- NOTE | 2021-10-10 07:45 | HO.PM.IMPN ---
Subjective Subjective Date of Service: 10/10/21 Interval History: esopahgeal tear Review of Systems Says am fine, no complaints otherwise speaks selectively. ? WBC improving, no fever ?tolerating clear liquids day 3 Physical Exam Vital Signs: Vital Signs: Last Vital Signs Temp 98.1 F 10/10/21 07:38 Pulse 76 10/10/21 07:38 Resp 16 10/10/21 07:38 BP 106/60 10/10/21 07:38 Pulse Ox 98 10/10/21 07:38 BMI result Body Mass Index 21.5 Gen:? Awake alert, no acute distress,?sister erickson help for feeding Lungs: clear to auscultation bilaterally Heart: regular rate and rhythm, no murmurs Abd: soft, non-tender, non-distended Ext: no edema or cyanosis Skin: warm/well-perfused,no subcutaneous emphysema palpable Neuro:? Awake, alert, in no distress Psych: impaired insight Objective Data Active Medications Vancomycin HCl 750 mg/ Sodium (Chloride) 265 mls @ 265 mls/hr IV Q12H [facility] Last Infusion: 10/09/21 21:35 Dose: 0 mls/hr Documented by: PAT Pharmacy Consult (Consult Rx Vancomycin Dosing) 1 each MISCELLANE DAILY PRN PRN Reason: Consult order Labs CBC & Chem 7: 10/09/21 08:07 10/10/21 05:18 Labs: Laboratory Results - last 24 hr 10/09/21 10/09/21 10/09/21 08:07 08:07 19:09 MCV 97.1 MCH 32.7 MCHC 33.6 RDW 14.4 Plt Count 227 MPV 10.3 Absolute Nucleated RBC 0.000 Nucleated RBC % (auto) 0.0 Neutrophils % (Manual) 60 Band Neutrophils % 1 L Lymphocytes % (Manual) 26 Monocytes % (Manual) 7 Eosinophils % (Manual) 3 Basophils % (Manual) 3 H Abs Neuts (Manual) 2.0 Lymphocytes # (Manual) 0.9 L Monocytes # (Manual) 0.2 Eosinophils # (Manual) 0.1 Basophils # (Manual) 0.1 Platelet Estimate NORMAL Plt Morphology Comment NORMAL RBC Morphology NOTED Hypochromasia 1+ (5-14) Ovalocytes 1+ (5-14) Anion Gap 11 L Estim Creat Clear Calc 85.3 Estimated GFR > 60 Random Glucose 85 Calcium 8.1 L Vancomycin Trough 15.1 10/10/21 05:18 MCV MCH MCHC RDW Plt Count MPV Absolute Nucleated RBC Nucleated RBC % (auto) Neutrophils % (Manual) Band Neutrophils % Lymphocytes % (Manual) Monocytes % (Manual) Eosinophils % (Manual) Basophils % (Manual) Abs Neuts (Manual) Lymphocytes # (Manual) Monocytes # (Manual) Eosinophils # (Manual) Basophils # (Manual) Platelet Estimate Plt Morphology Comment RBC Morphology Hypochromasia Ovalocytes Anion Gap 11 L Estim Creat Clear Calc 84.0 Estimated GFR > 60 Random Glucose 89 Calcium 8.3 L Vancomycin Trough Assessment and Plan (1) Leukopenia: Status: Acute (2) Esophageal perforation: Status: Acute Assessment and Plan: 41yo F long term 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, no other medical problems, sent in for reported tonic-clonic movements though no seizure history [but 2 visits to [facility] in last 3 mo for syncope] admitted for hypotension,found to have extensive pneumomediastinum with evidence of esophageal perforation esophageal perforation/ pneumomediastinum ? No acute issues overnight,denies chest pain, no shortness of breath, no overnight fever chills, remains hemodynamically stable with soft BP. vanco trough 12.1 ? Continue IV vancomycin day 07/09, off? IV Zosyn, and IV fluconazole, TPN has PICC line placed on 10/02/21 ? 1/2? blood culture likely Corynebacterium unlikely pathogen ? Renal functions stable WBC down to 2.4 slighty better than yesterday ? Echo showed EF 60-65%, no aortic valve stenosis noted, normal diastolic function ? Discussed with Thoracics surgery:? Barium swallow patient could not able to participate, refused to drink contrast. ? Discussed with thoracic surgery and patient sister in detail - plan is for clear liquids-clear for 3/4 days as per thoracic -then repat chest imaging and will discuss further with thoracic. ?she is taking clear since yesterday, we will take off tpn leukopenia: in WBC 2.4 improving, repeat CBC at a.m., will take neutropenic precaution Hypotension not septic, soft BP likely baseline. continue to moniter hypoK repleted, resolved possible seizure activity: - no recurrent seizures noted, continue seizure precautions eeg-nondisgnostic for seizure. ?? seen by psych, patient found to have no decision-making capacity, therefore invoked healthcare proxy mother and sister are both healthcare proxys [phone]? and her sister Erickson # [phone]. VTE ppx - SCDs, Quality Stroke Does the patient have a stroke diagnosis?: No VTE Prior VTE?: No VTE Risk Level:: Medical - moderate - high VTE Device Contraindication: Treatment Not Indicated VTE Drug Contraindication: N/A - Med Ordered
[2021-10-10] MEDS: vancomycin HCL 750 MG in 0.9 % Sodium Chloride 250 ML 265 MG IV ×2 (08:25→20:52)
[2021-10-10 12:47] LABS: MANUAL DIFF FLAG NO
[2021-10-10 12:51] LABS: Basophils Absolute Auto 0.1 X10*3/uL (0.0-0.2); Basophils Percent Auto 1.9 % (0-2); Eosinophils Absolute Auto 0.1 X10*3/uL (0.0-0.4); Eosinophils Percent Auto 1.9 % (0-4); Hematocrit 32.8 % (37.0-47.0); Hemoglobin 11.2 g/dl (12.0-16.0); Imm Gran Abs Auto 0.01 X10*3/uL (0.00-0.03); Imm Gran Pct Auto 0.4 % (0.0-0.4); Lymphocytes Absolute Auto 0.6 X10*3/uL (1.2-4.9); Mean Corpuscular HGB Conc 34.1 g/dl (31.0-35.0); Mean Corpuscular Hemoglobin 32.9 pg (27.0-33.0); Mean Corpuscular Volume 96.5 fL (80.0-98.0); Mean Platelet Volume 10.4 fL (9.4-12.3); Monocytes Absolute Auto 0.3 X10*3/uL (0.1-1.2); Monocytes Percent Auto 9.7 % (2-11); Neutrophils Absolute Auto 1.6 x10*3/uL (2.0-8.3); Neutrophils Percent Auto 62.1 % (45-73); Platelet Count 246 X10*3/uL (160-400); Red Cell Distribution Width 14.3 % (11.0-16.0); White Blood Count 2.6 X10*3/uL (4.8-10.8)
--- NOTE | 2021-10-10 14:38 | P.PNTS_ITS ---
Subjective Subjective Date of Service: 10/10/21 Interval history: Patient was seen and examined this morning. Continues to be reluctant to answer any questions. Seems to be more tired in appearance than yesterday. Has been tolerating her full liquid diet well and is now ingesting clear liquids on her own this morning. Physical Exam Vital Signs: Vital Signs: Last Vital Signs Temp 97.7 F 10/10/21 11:35 Pulse 77 10/10/21 11:35 Resp 16 10/10/21 11:35 BP 100/58 L 10/10/21 11:35 Pulse Ox 97 10/10/21 13:00 BMI result Body Mass Index 21.5 Const: General: comfortable, no acute distress and lethargic Orientation/consciousness: lethargic HENMT: Head: Yes atraumatic Eyes: Conjunctivae: conjunctivae normal Sclerae: sclerae normal Neck: Neck: Yes trachea midline, Yes supple and Yes other ( No subcutaneous emphysema noted on physical exam.) Resp: Effort & Inspection: normal respiratory effort Cardio: Jugular venous distension: no JVD Rate: regular rate GI: Inspection: Yes normal to inspection Palpation (GI): Soft to palpation and nontender Auscultation: normal bowel sounds Extrem: General: Yes normal to inspection and Yes no clubbing, cyanosis or edema Procedures Date of Service Date of Service: 10/10/21 Progress Note: A&P Assessment and plan (1) Leukopenia: Status: Acute (2) Esophageal perforation: Status: Acute (3) Pneumomediastinum: Status: Acute Assessment and Plan: Patient is a 41 year old female with Down Syndrome presenting to the hospital from her custodial after tonic-clonic movements concerning for seizure.? During workup she was found to have pneumomediastinum and evidence of small esophageal perforation.? Unknown cause as patient denies any recent retching, vomiting, or dysphasia although she is a poor historian. * Patient continues to remain hemodynamically stable. Pressures remain soft but this has been baseline for her. * S/p PICC line placement on 10/02/21 . WBC remains stable. * Patient remains on IV Vancomycin. IV Zosyn and Diflucan have been discontinued due to leukopenia * Patient seen by psych and deemed not competent in making medical decisions. Patient's HCP will need to be contact to assist with any medical decision making. Sister has been assisting with patient care and decision making. * At this time, re: her pneumomediastinum and possible esophageal perforation we are recommending continuing conservative management. * Patient did not tolerate barium swallow and spit out the barium on 10/06/21. Unable to perform test accurately. On exam, patient looks aseptic appearing * Need to continue to monitor closely and ensure patient remains afebrile and does not develop leukocytosis. * Morning chest x-ray reveals no pneumomediastinum or pleural effusion. * Will start on full liquids today. * NO STRAWS OR CARBONATED FLUIDS. * Continue with conservative management with rest, PRN analgesia if needed, and avoidance of maneuvers that increase pulmonary pressure such as forced expiration or Valsalva maneuvers * TPN has been stopped due to her toleration of clear liquid diet. * Monitor patient closely for any s/sx worsening infection/sepsis. * Trend WBC and temp. * Bergman catheter: in place Case discussed with Dr. Jackson. Thank you for this consult. We will continue to follow along. If patient's clinical condition deteriorates, please contact Thoracic Surgery immediately. Fall Risk Details Current Medications: Current Medications Vancomycin HCl 750 mg/ Sodium (Chloride) 265 mls @ 265 mls/hr IV Q12H [facility] Last Infusion: 10/10/21 09:25 Dose: Infused Documented by: Pharmacy Consult (Consult Rx Vancomycin Dosing) 1 each MISCELLANE DAILY PRN PRN Reason: Consult order Time Spent With Patient Time: Total time spent is greater than 50% in coordination of care (as documented) at patient's floor/unit and/or counseling patient: Time with patient: 25 - 35 minutes Quality Stroke Does the patient have a stroke diagnosis?: No VTE Prior VTE?: No VTE Risk Level:: Medical - moderate - high VTE Device Contraindication: Treatment Not Indicated VTE Drug Contraindication: N/A - Med Ordered
[2021-10-11] VITALS (8 sets, daily range): BP systolic 100–118; BP diastolic 49–62; PULSE 64–78; RESP 16–18; TEMP 36.3–37.4; O2SAT 98–100
[2021-10-11 07:06] LABS: Basophils Absolute Auto 0.1 X10*3/uL (0.0-0.2); Basophils Percent Auto 2.4 % (0-2); Eosinophils Percent Auto 1.9 % (0-4); Hematocrit 34.2 % (37.0-47.0); Hemoglobin 11.4 g/dl (12.0-16.0); Imm Gran Abs Auto 0.03 X10*3/uL (0.00-0.03); Imm Gran Pct Auto 1.4 % (0.0-0.4); Lymphocytes Absolute Auto 0.9 X10*3/uL (1.2-4.9); Lymphocytes Percent Auto 40.8 % (20-40); MANUAL DIFF FLAG SCAN; Mean Corpuscular HGB Conc 33.3 g/dl (31.0-35.0); Mean Corpuscular Hemoglobin 32.4 pg (27.0-33.0); Mean Corpuscular Volume 97.2 fL (80.0-98.0); Mean Platelet Volume 10.6 fL (9.4-12.3); Monocytes Absolute Auto 0.3 X10*3/uL (0.1-1.2); Monocytes Percent Auto 12.8 % (2-11); Neutrophils Absolute Auto 0.9 x10*3/uL (2.0-8.3); Neutrophils Percent Auto 40.7 % (45-73); Platelet Count 252 X10*3/uL (160-400); Red Blood Count 3.52 X10*6/uL (4.20-5.50); Red Cell Distribution Width 14.4 % (11.0-16.0); SCAN SMEAR FLAG 1
[2021-10-11 07:11] LABS: White Blood Count 2.1 X10*3/uL (4.8-10.8)
[2021-10-11 07:24] LABS: Anion Gap 13 (12-20); Blood Urea Nitrogen 4 mg/dL (9-16); Carbon Dioxide 25 mmol/L (22-29); Chloride 106 mmol/L (96-108); Creatinine Clr Calc Pharmacy 82.6; Estimated Glomerular Filt Rate > 60; Glucose Random 83 mg/dL (60-115); Potassium 3.7 mmol/L (3.3-5.1); Sodium 140 mmol/L (135-145); Vancomycin Trough 13.9 mcg/mL (10.0-20.0)
[2021-10-11 07:28] LABS: SLIDE REVIEW VERIFIED
--- NOTE | 2021-10-11 07:51 | P.PNIM_ITS ---
Subjective Subjective Date of Service: 10/11/21 Interval History: esophgeal tear Review of Systems denies chest pain or sob or abd pain denies any nausea or vomiting, sister is at bed side feeding her. Physical Exam Vital Signs: Vital Signs: Last Vital Signs Temp 98.0 F 10/11/21 07:15 Pulse 74 10/11/21 07:15 Resp 16 10/11/21 07:15 BP 117/61 10/11/21 07:15 Pulse Ox 100 10/11/21 07:15 BMI result Body Mass Index 21.5 Gen:? Awake alert, no acute distress,?sister erickson help for feeding Lungs: clear to auscultation bilaterally Heart: regular rate and rhythm, no murmurs Abd: soft, non-tender, non-distended Ext: no edema or cyanosis Skin: warm/well-perfused,no subcutaneous emphysema palpable Neuro:? Awake, alert, in no distress Psych: impaired insight Objective Data Active Medications Vancomycin HCl 750 mg/ Sodium (Chloride) 265 mls @ 265 mls/hr IV Q12H DAVID Last Infusion: 10/10/21 21:59 Dose: 0 mls/hr Documented by: PARK Pharmacy Consult (Consult Rx Vancomycin Dosing) 1 each MISCELLANE DAILY PRN PRN Reason: Consult order Labs CBC & Chem 7: 10/11/21 06:34 10/11/21 06:34 Labs: Laboratory Results - last 24 hr 10/10/21 10/11/21 10/11/21 12:43 06:34 06:34 MCV 96.5 97.2 MCH 32.9 32.4 MCHC 34.1 33.3 RDW 14.3 14.4 Plt Count 246 252 MPV 10.4 10.6 Immature Gran % (Auto) 0.4 1.4 H Neut % (Auto) 62.1 40.7 L Lymph % (Auto) 24.0 40.8 H [place] % (Auto) 9.7 12.8 H Eos % (Auto) 1.9 1.9 Baso % (Auto) 1.9 2.4 H Lymph # (Auto) 0.6 L 0.9 L [place] # (Auto) 0.3 0.3 Eos # (Auto) 0.1 0.0 Baso # (Auto) 0.1 0.1 Abs Immat Gran (auto) 0.01 0.03 Absolute Neuts (auto) 1.6 L 0.9 L Absolute Nucleated RBC 0.000 0.000 Nucleated RBC % (auto) 0.0 0.0 Smear Tech's Comments VERIFIED Anion Gap Estim Creat Clear Calc Estimated GFR Random Glucose Calcium Vancomycin Trough 13.9 10/11/21 06:34 MCV MCH MCHC RDW Plt Count MPV Immature Gran % (Auto) Neut % (Auto) Lymph % (Auto) [place] % (Auto) Eos % (Auto) Baso % (Auto) Lymph # (Auto) [place] # (Auto) Eos # (Auto) Baso # (Auto) Abs Immat Gran (auto) Absolute Neuts (auto) Absolute Nucleated RBC Nucleated RBC % (auto) Smear Tech's Comments Anion Gap 13 Estim Creat Clear Calc 82.6 Estimated GFR > 60 Random Glucose 83 Calcium 8.0 L Vancomycin Trough Assessment and Plan (1) Leukopenia: Status: Acute (2) Esophageal perforation: Status: Acute Assessment and Plan: 41yo F halfway 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, no other medical problems, sent in for reported tonic-clonic movements though no seizure history [but 2 visits to [facility] ED in last 3 mo for syncope] admitted for hypotension,found to have extensive pneumomediastinum with evidence of esophageal perforation ?esophageal perforation/ pneumomediastinum ? No acute issues overnight,denies chest pain, no shortness of breath, no overnight fever chills, remains hemodynamically stable with soft BP. vanco trough 12.1 ? Continue IV vancomycin day 1314, off? IV Zosyn, and IV fluconazole, TPN has PICC line placed on 10/02/21 vanco trough around 13.9 today. ? 1/2? blood culture likely Corynebacterium unlikely pathogen ? Renal functions stable WBC fluctuaing between 2-3 ? Echo showed EF 60-65%, no aortic valve stenosis noted, normal diastolic function ? Discussed with Thoracics surgery:? Barium swallow patient could not able to participate, refused to drink contrast. cxr repeated - No appreciable pneumomediastinum remains. No pneumothorax. Normal heart size and pulmonary vascularity. Lungs are clear.? ? Discussed with thoracic surgery and patient sister in detail - now on full liquid diet asper thoracic . ? ?leukopenia: in WBC imrpoving flactuating-between 2-3 range, will take neutropenic precaution ?Hypotension ?not septic, soft BP likely baseline. continue to moniter hypoK ?repleted, resolved possible seizure activity: - no recurrent seizures noted, continue seizure precautions eeg-nondisgnostic for seizure. ?? seen by psych, patient found to have no decision-making capacity, therefore invoked healthcare proxy mother and sister are both healthcare proxys [phone]? and her sister Erickson # [phone]. ?VTE ppx - SCDs, Quality Stroke Does the patient have a stroke diagnosis?: No VTE Prior VTE?: No VTE Risk Level:: Medical - moderate - high VTE Device Contraindication: Treatment Not Indicated VTE Drug Contraindication: N/A - Med Ordered
[2021-10-11] MEDS: vancomycin HCL 750 MG in 0.9 % Sodium Chloride 250 ML 265 MG IV ×2 (08:56→21:37)
--- NOTE | 2021-10-11 13:46 | P.PNTS_ITS ---
Subjective Subjective Date of Service: 10/11/21 Interval history: Patient was seen and examined this morning. She appears less tired and lethargic as she did on previous day. According to nursing and her sister she began her full liquid diet yesterday evening with no symptoms of dysphagia or odynophagia. Denies any vomiting however does admit to some nausea for which we will be prescribing Zofran 4 mg IV push every 6 hours as needed as well as initiating a PPI. Denies any pain or shortness of breath and remaining 12 point review of systems not obtainable due to patient's reluctance to answer questions. Physical Exam Vital Signs: Vital Signs: Last Vital Signs Temp 97.8 F 10/11/21 11:11 Pulse 68 10/11/21 11:11 Resp 16 10/11/21 11:11 BP 108/55 L 10/11/21 11:11 Pulse Ox 98 10/11/21 11:11 BMI result Body Mass Index 21.5 Const: General: comfortable, no acute distress and lethargic Orientation/consciousness: lethargic HENMT: Head: Yes atraumatic Eyes: Conjunctivae: conjunctivae normal Sclerae: sclerae normal Neck: Neck: Yes trachea midline, Yes supple and Yes other ( No subcutaneous emphysema noted on physical exam.) Resp: Effort & Inspection: normal respiratory effort Cardio: Jugular venous distension: no JVD Rate: regular rate GI: Inspection: Yes normal to inspection Palpation (GI): Soft to palpation and nontender Auscultation: normal bowel sounds Extrem: General: Yes normal to inspection and Yes no clubbing, cyanosis or edema Procedures Date of Service Date of Service: 10/11/21 Progress Note: A&P Assessment and plan (1) Leukopenia: Status: Acute (2) Esophageal perforation: Status: Acute (3) Pneumomediastinum: Status: Acute Assessment and Plan: Patient is a 41 year old female with Down Syndrome presenting to the hospital from her alf after tonic-clonic movements concerning for seizure.? During workup she was found to have pneumomediastinum and evidence of small esophageal perforation.? Unknown cause as patient denies any recent retching, vomiting, or dysphasia although she is a poor historian. * Patient continues to remain hemodynamically stable. Pressures remain soft but this has been baseline for her. * S/p PICC line placement on 10/02/21 . WBC remains stable. * Patient remains on IV Vancomycin. IV Zosyn and Diflucan have been discontinued due to leukopenia * Patient seen by psych and deemed not competent in making medical decisions. Patient's HCP will need to be contact to assist with any medical decision making. Sister has been assisting with patient care and decision making. * At this time, re: her pneumomediastinum and possible esophageal perforation we are recommending continuing conservative management. * Patient did not tolerate barium swallow and spit out the barium on 10/06/21. Unable to perform test accurately. On exam, patient looks aseptic appearing * Need to continue to monitor closely and ensure patient remains afebrile and does not develop leukocytosis. * Yesterday's chest x-ray reveals no pneumomediastinum or pleural effusion. * Was started on full liquids on 10/10( * Zofran 4 mg IV every 6 hours as needed due to reports of nausea. * Protonix 20 mg IV daily. * NO STRAWS OR CARBONATED FLUIDS. * Continue with conservative management with rest, PRN analgesia if needed, and avoidance of maneuvers that increase pulmonary pressure such as forced expiration or Valsalva maneuvers * TPN has been stopped due to her toleration of liquid diet. * Monitor patient closely for any s/sx worsening infection/sepsis. * Trend WBC and temp. * Bergman catheter: in place Case discussed with Dr. Jackson. Thank you for this consult. We will continue to follow along. If patient's clinical condition deteriorates, please contact Thoracic Surgery immediately. Fall Risk Details Current Medications: Current Medications Vancomycin HCl 750 mg/ Sodium (Chloride) 265 mls @ 265 mls/hr IV Q12H DAVID Last Infusion: 10/11/21 09:56 Dose: Infused Documented by: Ondansetron HCl (Ondansetron Hcl 4 Mg/2 Ml Vial) 4 mg IVPUSH Q6H PRN PRN Reason: Nausea Pharmacy Consult (Consult Rx Vancomycin Dosing) 1 each MISCELLANE DAILY PRN PRN Reason: Consult order Time Spent With Patient Time: Total time spent is greater than 50% in coordination of care (as documented) at patient's floor/unit and/or counseling patient: Time with patient: 15 - 24 minutes Quality Stroke Does the patient have a stroke diagnosis?: No VTE Prior VTE?: No VTE Risk Level:: Medical - moderate - high VTE Device Contraindication: Treatment Not Indicated VTE Drug Contraindication: N/A - Med Ordered
[2021-10-11] MEDS: Pantoprazole Sodium 40 MG/10 ML VIAL 20 MG IVPUSH (14:44)
[2021-10-11] MEDS: ondansetron HCL 4 MG/2 ML VIAL IVPUSH (18:00)
[2021-10-12] VITALS (10 sets, daily range): BP systolic 84–136; BP diastolic 46–76; PULSE 63–100; RESP 16–20; TEMP 36.3–36.6; O2SAT 95–98
[2021-10-12 04:56] LABS: Basophils Percent Auto 2.3 % (0-2); Eosinophils Absolute Auto 0.1 X10*3/uL (0.0-0.4); Eosinophils Percent Auto 5.8 % (0-4); Hematocrit 32.9 % (37.0-47.0); Imm Gran Abs Auto 0.01 X10*3/uL (0.00-0.03); Imm Gran Pct Auto 0.6 % (0.0-0.4); Lymphocytes Absolute Auto 0.6 X10*3/uL (1.2-4.9); Lymphocytes Percent Auto 35.5 % (20-40); MANUAL DIFF FLAG SCAN; Mean Corpuscular HGB Conc 33.4 g/dl (31.0-35.0); Mean Corpuscular Hemoglobin 32.4 pg (27.0-33.0); Mean Corpuscular Volume 97.1 fL (80.0-98.0); Mean Platelet Volume 10.4 fL (9.4-12.3); Monocytes Absolute Auto 0.2 X10*3/uL (0.1-1.2); Monocytes Percent Auto 12.2 % (2-11); Neutrophils Absolute Auto 0.8 x10*3/uL (2.0-8.3); Neutrophils Percent Auto 43.6 % (45-73); Platelet Count 254 X10*3/uL (160-400); Red Blood Count 3.39 X10*6/uL (4.20-5.50); Red Cell Distribution Width 14.2 % (11.0-16.0); SCAN SMEAR FLAG 1
[2021-10-12 05:01] LABS: White Blood Count 1.7 X10*3/uL (4.8-10.8)
[2021-10-12 05:10] LABS: SLIDE REVIEW VERIFIED
--- NOTE | 2021-10-12 05:19 | PC.NURSE ---
at 0515 am pt pooled out picc line line is intact tip intact occlusive drg applied and md notified pt states she just wanted to see it she didnt want to take it out
[2021-10-12] MEDS: Pantoprazole Sodium 40 MG/10 ML VIAL 20 MG IVPUSH (05:26)
[2021-10-12] MEDS: vancomycin HCL 750 MG in 0.9 % Sodium Chloride 250 ML 265 MG IV (08:14)
--- NOTE | 2021-10-12 12:55 | P.PNIM_ITS ---
Subjective Subjective Date of Service: 10/12/21 Interval History: esophgeal tear Review of Systems ?denies chest pain or sob or abd pain ?denies any vomiting nausea improivng Physical Exam 2 Vital Signs: Vital Signs: Last Vital Signs Temp 97.7 F 10/12/21 11:33 Pulse 70 10/12/21 11:33 Resp 18 10/12/21 11:33 BP 90/52 L 10/12/21 11:33 Pulse Ox 98 10/12/21 11:33 BMI result Body Mass Index 21.5 Gen:? Awake alert, no acute distress,?sister erickson help for feeding Lungs: clear to auscultation bilaterally Heart: regular rate and rhythm, no murmurs Abd: soft, non-tender, non-distended Ext: no edema or cyanosis Skin: warm/well-perfused,no subcutaneous emphysema palpable Neuro:? Awake, alert, in no distress Psych: impaired insight Objective Data Active Medications Vancomycin HCl 750 mg/ Sodium (Chloride) 265 mls @ 265 mls/hr IV Q12H [facility] Last Infusion: 10/12/21 09:14 Dose: 0 mls/hr Documented by: JORGE Ondansetron HCl (Ondansetron Hcl 4 Mg/2 Ml Vial) 4 mg IVPUSH Q6H PRN PRN Reason: Nausea Last Admin: 10/11/21 18:00 Dose: 4 mg Documented by: JORGE Pantoprazole Sodium (Pantoprazole Sodium 40 Mg/10 Ml Vial) 20 mg IVPUSH DAILY@0630 [facility] Last Admin: 10/12/21 05:26 Dose: 20 mg Documented by: ALEX Pharmacy Consult (Consult Rx Vancomycin Dosing) 1 each MISCELLANE DAILY PRN PRN Reason: Consult order Labs CBC & Chem 7: 10/12/21 03:59 10/11/21 06:34 Labs: Laboratory Results - last 24 hr 10/12/21 03:59 MCV 97.1 MCH 32.4 MCHC 33.4 RDW 14.2 Plt Count 254 MPV 10.4 Immature Gran % (Auto) 0.6 H Neut % (Auto) 43.6 L Lymph % (Auto) 35.5 [place] % (Auto) 12.2 H Eos % (Auto) 5.8 H Baso % (Auto) 2.3 H Lymph # (Auto) 0.6 L [place] # (Auto) 0.2 Eos # (Auto) 0.1 Baso # (Auto) 0.0 Abs Immat Gran (auto) 0.01 Absolute Neuts (auto) 0.8 L Absolute Nucleated RBC 0.000 Nucleated RBC % (auto) 0.0 Smear Tech's Comments VERIFIED Assessment and Plan (1) Leukopenia: Status: Acute (2) Esophageal perforation: Status: Acute Assessment and Plan: 41yo F [facility] 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, no other medical problems, sent in for reported tonic-clonic movements though no seizure history [but 2 visits to [facility] in last 3 mo for syncope] admitted for hypotension,found to have extensive pneumomediastinum with evidence of esophageal perforation ?1.esophageal perforation/ pneumomediastinum ? No acute issues overnight,denies chest pain, no shortness of breath, no overnight fever chills, remains hemodynamically stable with soft BP. vanco trough 12.1 completed vancomycin day , off? IV Zosyn, and IV fluconazole, TPN has PICC line placed on 10/02/21 ? 1/2? blood culture likely Corynebacterium unlikely pathogen ? Renal functions stable WBC fluctuaing between 2-3, ? Echo showed EF 60-65%, no aortic valve stenosis noted, normal diastolic function ? Discussed with Thoracics surgery:? Barium swallow patient could not able to participate, refused to drink contrast. cxr repeated -?No appreciable pneumomediastinum remains. No pneumothorax. Normal heart size and pulmonary vascularity. Lungs are clear.? ? Discussed with thoracic surgery and patient sister in detail - now on full liquid diet asper? thoracic . ?thoracic follow up. 2.?leukopenia: in WBC imrpoving flactuating-between 2-3 range, today 1.7,neutropenic precaution ?Hypotension ?not septic, soft BP likely baseline. continue to moniter will add hematology evaluation persistent leukopenia. 3.hypoK ?repleted, resolved 4.possible seizure activity: - no recurrent seizures noted, continue seizure precautions eeg-nondisgnostic for seizure. ?? seen by psych, patient found to have no decision-making capacity, therefore invoked healthcare proxy mother and sister are both healthcare proxys [phone]? and her sister Erickson # [phone]. ?VTE ppx - SCDs, Quality Stroke Does the patient have a stroke diagnosis?: No VTE Prior VTE?: No VTE Risk Level:: Medical - moderate - high VTE Device Contraindication: Treatment Not Indicated VTE Drug Contraindication: N/A - Med Ordered
[2021-10-12] MEDS: 0.9 % Sodium Chloride 1,000 ML 80 ML IVCONT (13:21)
--- NOTE | 2021-10-12 13:58 | PM.HEMONCCN ---
Subjective - Subjective Chief complaint: None Patient: new to practice Consult date: 10/12/21 Requesting Physician: Dr. Pathak Primary Care Provider: Unknown Physician HPI - Consult Narrative Reason for consult: leukopenia Narrative: Rosa Gupta is a 41 year old female with Down syndrome who has been admitted for esophageal perforation and pneumomediastinum. She has been on multiple antibiotics since admission. She is on liquid diet because of esophageal perforation. Blood culture was positive but felt to be contaminant. She has been receiving vancomycin. [facility] Medical History: Medical History (Last Reviewed 10/02/21 @ 15:34 by Keisha Pride MD) Down's syndrome Mood disorder Psychotic disorder Functional capacity: independent ambulation Social History: Social History (Last Reviewed 10/02/21 @ 15:34 by Keisha Pride MD) Living Situation History: Household Members: Other Household Members Other:: prison Housing: Other Housing Other:: prison Do you presently have visiting nurse or other home services: Yes Do you presently have visiting nurse or other home services comment: prison Tobacco History: Patient Tobacco Use Status: Never used Tobacco Occupation Assessmet: service: No Current occupational status: disabled Home Medications and Allergies Current Medications: Current Medications Sodium Chloride (Ns) 1,000 mls @ 80 mls/hr IVCONT .[id number] [facility] Last Admin: 10/12/21 13:21 Dose: 80 mls/hr Documented by: Ondansetron HCl (Ondansetron Hcl 4 Mg/2 Ml Vial) 4 mg IVPUSH Q6H PRN PRN Reason: Nausea Last Admin: 10/11/21 18:00 Dose: 4 mg Documented by: Pantoprazole Sodium (Pantoprazole Sodium 40 Mg/10 Ml Vial) 20 mg IVPUSH DAILY@0630 [facility] Last Admin: 10/12/21 05:26 Dose: 20 mg Documented by: Pharmacy Consult (Consult Rx Vancomycin Dosing) 1 each MISCELLANE DAILY PRN PRN Reason: Consult order Home Medications Medication Instructions Recorded Confirmed Type acetaminophen 325 mg tablet 650 mg PO Q4H PRN 09/28/21 09/28/21 History chlorhexidine gluconate 0.12 % 15 ml BUCCAL BID 09/28/21 09/28/21 History mouthwash (Peridex) Allergies Allergy/AdvReac Type Severity Reaction Status Date / Time Seasonal Allergies Allergy Unknown Verified 09/28/21 08:45 Physical Exam Vital signs: Vital Signs Temp 97.7 F 10/12/21 11:33 Pulse 75 10/12/21 13:44 Resp 18 10/12/21 11:33 BP 84/46 L 10/12/21 13:44 Pulse Ox 98 10/12/21 11:33 Intake & Output 10/11/21 10/12/21 10/12/21 18:59 06:59 18:59 Intake Total 875 / 1260 385 / 1260 265 / 265 Output Total 300 / 1050 750 / 1050 Balance 575 / 210 -365 / 210 265 / 265 Urine Output (Average ml/kg/hr) 0.50 1.25 1.25 Intake: Intake, Oral Amount 610 / 730 120 / 730 Intake, IV Amount 265 / 530 265 / 530 265 / 265 vancomycin HCL 750 mg In 0.9 % 265 / 530 265 / 530 265 / 265 Sodium Chloride 250 ml @ 265 mls/hr IV Q12H [facility] Rx#: [id number] Output: Output, Urine Amount (Catheter) 300 / 1050 750 / 1050 2-way Urethral 300 / 1050 750 / 1050 Other: Meal Refused No NPO No Breakfast % Eaten 25% Lunch % Eaten 75% Dinner % Eaten 0% Urine castellano Urine Color Tea Yellow Weight 50 kg - Constitutional Present: no acute distress - Routine Respiratory Exam Absent: respiratory distress - Routine Cardiovascular Exam Cardiovascular: Present: S1, S2 Hem/Onc Consult Result - Labs CBC & Chem 7: 10/12/21 03:59 10/11/21 06:34 Labs: Short CBC 10/12/21 Range/Units 03:59 WBC 1.7 L (4.8-10.8) X10*3/uL Hgb 11.0 L (12.0-16.0) g/dl Hct 32.9 L (37.0-47.0) % Plt Count 254 (160-400) X10*3/uL Assessment and Plan Patient Active problem list reviewed?: Yes (1) Leukopenia Status: Acute Assessment and plan: 1. This is a 41-year-old woman with Down syndrome admitted for esophageal perforation. She has been on vancomycin for several days, previously was on Zosyn and IV fluconazole. WBC prior to admission in September 2021 was normal at 5.3 K.. This has gradually worsened over the course of this admission. Leukopenia/neutropenia most likely a result of antibiotics, vancomycin can cause agranulocytosis/leukopenia. She also received several doses of Zosyn which can cause agranulocytosis as well as pancytopenia and drug-induced immune thrombocytopenia. Please manage antibiotics as appropriate. No indication for hematological workup at this time. Thank you for the consult. - Time Spent With Patient Time Spent with Patient (in minutes): 15
--- NOTE | 2021-10-12 14:50 | P.PNTS_ITS ---
Subjective Subjective Date of Service: 10/12/21 Interval history: Patient was seen and examined this morning. This is a late entry from that examination. Overnight patient had removed her PICC and IV lines for reasons that are unclear. Currently nursing patient has been tolerating her full liquid diet well with an episode of nausea yesterday that was relieved by a as needed Zofran order. Remaining 12 point review of systems continues to be unable to obtain due to patient's only answer stating I feel fine. Physical Exam Vital Signs: Vital Signs: Last Vital Signs Temp 97.7 F 10/12/21 11:33 Pulse 75 10/12/21 13:44 Resp 18 10/12/21 11:33 BP 84/46 L 10/12/21 13:44 Pulse Ox 98 10/12/21 11:33 BMI result Body Mass Index 21.5 Const: General: comfortable, no acute distress and lethargic Orientation/consciousness: lethargic HENMT: Head: Yes atraumatic Eyes: Conjunctivae: conjunctivae normal Sclerae: sclerae normal Neck: Neck: Yes trachea midline, Yes supple and Yes other ( No subcutaneous emphysema noted on physical exam.) Resp: Effort & Inspection: normal respiratory effort Cardio: Jugular venous distension: no JVD Rate: regular rate GI: Inspection: Yes normal to inspection Palpation (GI): Soft to palpation and nontender Auscultation: normal bowel sounds Extrem: General: Yes normal to inspection and Yes no clubbing, cyanosis or edema Procedures Date of Service Date of Service: 10/12/21 Progress Note: A&P Assessment and plan (1) Leukopenia: Status: Acute (2) Esophageal perforation: Status: Acute (3) Pneumomediastinum: Status: Acute Assessment and Plan: Patient is a 41 year old female with Down Syndrome presenting [facility] the hospital [facility] after tonic-clonic movements concerning for seizure.? During workup she was found to have pneumomediastinum and evidence of small esophageal perforation.? Unknown cause as patient denies any recent retching, vomiting, or dysphasia although she is a poor historian. * Patient continues to remain hemodynamically stable. Pressures remain soft but this has been baseline for her. * S/p PICC line placement on 10/02/21 . WBC remains stable. * Patient remains on IV Vancomycin. IV Zosyn and Diflucan have been discontinued due to leukopenia * Patient seen by psych and deemed not competent in making medical decisions. Patient's HCP will need to be contact to assist with any medical decision making. Sister has been assisting with patient care and decision making. * At this time, re: her pneumomediastinum and possible esophageal perforation we are recommending continuing conservative management. * Patient did not tolerate barium swallow and spit out the barium on 10/06/21. Unable to perform test accurately. On exam, patient looks aseptic appearing * Need to continue to monitor closely and ensure patient remains afebrile and does not develop leukocytosis. * chest x-ray on 10/10 reveals no pneumomediastinum or pleural effusion. * Was started on full liquids on 10/10 * Zofran 4 mg IV every 6 hours as needed due to reports of nausea. * Protonix 20 mg IV daily. * NO STRAWS OR CARBONATED FLUIDS. * Continue with conservative management with rest, PRN analgesia if needed, and avoidance of maneuvers that increase pulmonary pressure such as forced expiration or Valsalva maneuvers * TPN has been stopped due to her toleration of liquid diet. * Monitor patient closely for any s/sx worsening infection/sepsis. * Trend WBC and temp. * Bergman catheter: in place Case discussed with Dr. Jackson. Thank you for this consult. We will continue to follow along. If patient's clinical condition deteriorates, please contact Thoracic Surgery immediately. Fall Risk Details Current Medications: Current Medications Sodium Chloride (Ns) 1,000 mls @ 80 mls/hr IVCONT .[id number] [facility] Last Admin: 10/12/21 13:21 Dose: 80 mls/hr Documented by: Ondansetron HCl (Ondansetron Hcl 4 Mg/2 Ml Vial) 4 mg IVPUSH Q6H PRN PRN Reason: Nausea Last Admin: 10/11/21 18:00 Dose: 4 mg Documented by: Pantoprazole Sodium (Pantoprazole Sodium 40 Mg/10 Ml Vial) 20 mg IVPUSH DAILY@0630 [facility] Last Admin: 10/12/21 05:26 Dose: 20 mg Documented by: Pharmacy Consult (Consult Rx Vancomycin Dosing) 1 each MISCELLANE DAILY PRN PRN Reason: Consult order Time Spent With Patient Time: Total time spent is greater than 50% in coordination of care (as documented) at patient's floor/unit and/or counseling patient: Time with patient: 15 - 24 minutes Quality Stroke Does the patient have a stroke diagnosis?: No VTE Prior VTE?: No VTE Risk Level:: Medical - moderate - high VTE Device Contraindication: Treatment Not Indicated VTE Drug Contraindication: N/A - Med Ordered
[2021-10-12] MEDS: ondansetron HCL 4 MG/2 ML VIAL IVPUSH (15:17)
--- NOTE | 2021-10-12 17:01 | MHC.CLN ---
F/U DIET ADVANCED TO FULL LIQUIDS. CONTINUE ENSURE CLEAR TID TO PROVIDE ADDITIONAL 720 KCAL, 24 G PROTEIN. TAKING 25-75% OF MEALS. CONTINUE TO FOLLOW INTAKE AND DIET TOLERANCE.
[2021-10-13] VITALS (8 sets, daily range): BP systolic 98–135; BP diastolic 47–60; PULSE 60–100; RESP 17–20; TEMP 36.2–37; O2SAT 96–99
[2021-10-13] MEDS: 0.9 % Sodium Chloride 1,000 ML 80 ML IVCONT ×2 (00:49→14:50)
[2021-10-13] MEDS: Pantoprazole Sodium 40 MG/10 ML VIAL 20 MG IVPUSH (05:30)
[2021-10-13 14:01] LABS: Basophils Percent Auto 1.9 % (0-2); Eosinophils Absolute Auto 0.1 X10*3/uL (0.0-0.4); Eosinophils Percent Auto 5.3 % (0-4); Hematocrit 30.3 % (37.0-47.0); Hemoglobin 10.3 g/dl (12.0-16.0); Imm Gran Abs Auto 0.02 X10*3/uL (0.00-0.03); Lymphocytes Absolute Auto 0.8 X10*3/uL (1.2-4.9); Lymphocytes Percent Auto 36.4 % (20-40); MANUAL DIFF FLAG SCAN; Mean Corpuscular Hemoglobin 32.8 pg (27.0-33.0); Mean Corpuscular Volume 96.5 fL (80.0-98.0); Mean Platelet Volume 9.9 fL (9.4-12.3); Monocytes Absolute Auto 0.2 X10*3/uL (0.1-1.2); Monocytes Percent Auto 11.5 % (2-11); Neutrophils Absolute Auto 0.9 x10*3/uL (2.0-8.3); Neutrophils Percent Auto 43.9 % (45-73); Platelet Count 248 X10*3/uL (160-400); Red Blood Count 3.14 X10*6/uL (4.20-5.50); Red Cell Distribution Width 14.4 % (11.0-16.0); SCAN SMEAR FLAG 1
[2021-10-13 14:02] LABS: White Blood Count 2.1 X10*3/uL (4.8-10.8)
[2021-10-13 14:19] LABS: Anion Gap 9 (12-20); Blood Urea Nitrogen 3 mg/dL (9-16); Calcium 7.8 mg/dL (8.4-10.2); Carbon Dioxide 26 mmol/L (22-29); Chloride 108 mmol/L (96-108); Estimated Glomerular Filt Rate > 60; Glucose Random 91 mg/dL (60-115); Potassium 3.4 mmol/L (3.3-5.1); SLIDE REVIEW VERIFIED; Sodium 140 mmol/L (135-145)
[2021-10-13 14:23] LABS: Vancomycin Trough 3.8 mcg/mL (10.0-20.0)
--- NOTE | 2021-10-13 15:25 | P.PNTS_ITS ---
Subjective Subjective Date of Service: 10/13/21 Interval history: Patient seen and examined this afternoon. Has been on full liquid diet for 3 days now. Tolerating fine. Seen by Adrian, patient no longer on abx. Sister visiting from [place] to assist with patient care and feeding. Patient's sister states she is getting tired of the same meals every day and is ready for cheeserbugers and senegalese fries or spaghetti and meatballs . Patient sleeping at time of my exam, able to answer few questions after falling back to sleep. Physical Exam Vital Signs: Vital Signs: Last Vital Signs Temp 98.4 F 10/13/21 15:20 Pulse 69 10/13/21 15:20 Resp 18 10/13/21 15:20 BP 115/55 L 10/13/21 15:20 Pulse Ox 96 10/13/21 15:20 BMI result Body Mass Index 21.5 Const: General: cooperative, healthy appearing, comfortable and no acute distress Nutritional Appearance: well nourished Orientation/consciousness: oriented to person and Other orientation findings (Patient sleeping at time of my exam. Able to answer only a few questions.) Limitations: behavioral limitations HENMT: Head: Yes normal to inspection, Yes normocephalic and Yes atraumatic Mouth: Normal oral and palatal mucosa present and other (Dry oral mucosae) Eyes: Visual Goodrich: normal visual goodrich by confrontation Alignment and Position: alignment normal Periorbital: periorbital findings normal Conjunctivae: conjunctivae normal Sclerae: sclerae normal Pupils: Equal, round and reactive pupils present and Pupil accommodation reflex normal EOM: EOMs intact bilaterally Neck: Neck: Yes normal visual inspection, Yes full ROM, Yes no lymphadenopathy, Yes trachea midline, Yes supple, No lymphadenopathy, No tender, No tracheal deviation and Yes other ( No subcutaneous emphysema noted on ph ysical exam.) Lymphatic: no lymphadenopathy noted Chest: Chest palpation & inspection: normal inspection of the chest and no crepitus Resp: Effort & Inspection: normal respiratory effort, able to speak in complete sentences, normal respiratory pattern, no audible wheezes, no cough, no pursed lip breathing, no respiratory distress, no stridor, not tachypneic and no tracheal deviation Auscultation: clear to auscultation bilaterally Cardio: Jugular venous distension: no JVD Palpation: normal PMI Rate: regular rate Rhythm: regular rhythm Heart sounds: S1 normal heart sound present, S2 normal heart sound present, no click, no gallops, no murmurs and no rubs GI: Inspection: Yes normal to inspection Palpation (GI): Soft to palpation and nontender Auscultation: Hypoactive bowel sounds present : General: Yes no CVA tenderness Back/Spine/Pelvis: Back: no CVA tenderness Thoracic/Lumbar Spine: thoracic and lumbar spine normal to inspection Skin: General skin exam: no rashes or lesions noted and dry skin Lesions: no lesions Rashes: no rashes Neuro: General: oriented to person and gait normal Cranial nerves: Yes Equal, round and reactive pupils present Extrem: General: Yes normal to inspection, Yes full ROM, Yes capillary refill normal, Yes no clubbing, cyanosis or edema, Yes no pedal edema and Yes normal gait Psych: Appearance: grossly normal and well kempt Mental Status: mental status grossly normal Speech and movement: Normal speech and movement present and Clear speech present Affect: normal affect Attitude: cooperative Thought process: Normal thought process present Thought content: Normal thought content present Procedures Date of Service Date of Service: 10/13/21 Progress Note: A&P Assessment and plan (1) Leukopenia: Status: Acute (2) Esophageal perforation: Status: Acute (3) Pneumomediastinum: Status: Acute Assessment and Plan: Patient is a 41 year old female with Down Syndrome presenting to the hospital from her retirement after tonic-clonic movements concerning for seizure.? During workup she was found to have pneumomediastinum and evidence of small esophageal perforation.? Unknown cause as patient denies any recent retching, vomiting, or dysphasia although she is a poor historian. * Patient continues to remain hemodynamically stable * PICC line in place * Patient seen by hematology following episodes of leukopenia. Patient previous on IV vanco, zosyn, and diflucan (all of which have since been discontinued). WBC 2.1 today * Patient seen by psych and deemed not competent in making medical decisions. Patient's HCP will need to be contact to assist with any medical decision making. Sister has been assisting with patient care and decision making. * At this time, re: her pneumomediastinum and possible esophageal perforation we are recommending continuing conservative management. * Patient did not tolerate barium swallow and spit out the barium. Unable to perform test accurately. On exam, patient looks aseptic appearing and denies nausea, vomiting, or dry heaves. Thoracic Surgery has been monitoring closely to ensure patient remains afebrile and does not develop leukocytosis. * Since she could not tolerate further testing to assess for esophageal perforation following 7 days of NPO status, patient was progressed to clear liquids followed by a full liquid diet starting 10/10. With instructions to AVOID STRAWS OR CARBONATED FLUIDS. * Chest x-ray on 10/10/21 showed no evidence of pneumomediastinum or pleural effusion * TPN discontinued. * Nursing should be documenting how much of her meals she is tolerating. * Monitor patient closely for any s/sx worsening infection/sepsis. * Trend WBC and temp. * Bergman catheter: in place * Continue with IV Zofran PRN nausea and Protonix IV daily Case discussed with Dr. Jackson. Thank you for this consult. We will continue to follow along. Fall Risk Details Current Medications: Current Medications Sodium Chloride (Ns) 1,000 mls @ 80 mls/hr IVCONT .[id number] [facility] Last Admin: 10/13/21 14:50 Dose: 80 mls/hr Documented by: Ondansetron HCl (Ondansetron Hcl 4 Mg/2 Ml Vial) 4 mg IVPUSH Q6H PRN PRN Reason: Nausea Last Admin: 10/12/21 15:17 Dose: 4 mg Documented by: Pantoprazole Sodium (Pantoprazole Sodium 40 Mg/10 Ml Vial) 20 mg IVPUSH DAILY@0630 [facility] Last Admin: 10/13/21 05:30 Dose: 20 mg Documented by: Pharmacy Consult (Consult Rx Vancomycin Dosing) 1 each MISCELLANE DAILY PRN PRN Reason: Consult order Time Spent With Patient Time: Total time spent is greater than 50% in coordination of care (as documented) at patient's floor/unit and/or counseling patient: Time with patient: less than 15 minutes Quality Stroke Does the patient have a stroke diagnosis?: No VTE Prior VTE?: No VTE Risk Level:: Medical - moderate - high VTE Device Contraindication: Treatment Not Indicated VTE Drug Contraindication: N/A - Med Ordered
--- NOTE | 2021-10-13 15:37 | P.PNIM_ITS ---
Subjective Subjective Date of Service: 10/13/21 Interval History: esophageal tear, leukopenia Review of Systems patient is tolerating full liquid diet, denies any chest pain or shortness of breath or abdominal pain or fever or chills. Physical Exam Vital Signs: Vital Signs: Last Vital Signs Temp 98.4 F 10/13/21 15:20 Pulse 69 10/13/21 15:20 Resp 18 10/13/21 15:20 BP 115/55 L 10/13/21 15:20 Pulse Ox 96 10/13/21 15:20 BMI result Body Mass Index 21.5 Gen:? Awake alert, no acute distress,?sister erickson help for feeding Lungs: clear to auscultation bilaterally Heart: regular rate and rhythm, no murmurs Abd: soft, non-tender, non-distended Ext: no edema or cyanosis Skin: warm/well-perfused,no subcutaneous emphysema palpable Neuro:? Awake, alert, in no distress Psych: impaired insight Objective Data Active Medications Sodium Chloride (Ns) 1,000 mls @ 80 mls/hr IVCONT .[id number] [facility] Last Admin: 10/13/21 14:50 Dose: 80 mls/hr Documented by: JP Ondansetron HCl (Ondansetron Hcl 4 Mg/2 Ml Vial) 4 mg IVPUSH Q6H PRN PRN Reason: Nausea Last Admin: 10/12/21 15:17 Dose: 4 mg Documented by: JORGE Pantoprazole Sodium (Pantoprazole Sodium 40 Mg/10 Ml Vial) 20 mg IVPUSH DAILY@0630 [facility] Last Admin: 10/13/21 05:30 Dose: 20 mg Documented by: AMANDO Pharmacy Consult (Consult Rx Vancomycin Dosing) 1 each MISCELLANE DAILY PRN PRN Reason: Consult order Labs CBC & Chem 7: 10/13/21 13:46 10/13/21 13:46 Labs: Laboratory Results - last 24 hr 10/13/21 10/13/21 10/13/21 13:46 13:46 13:46 MCV 96.5 MCH 32.8 MCHC 34.0 RDW 14.4 Plt Count 248 MPV 9.9 Immature Gran % (Auto) 1.0 H Neut % (Auto) 43.9 L Lymph % (Auto) 36.4 [place] % (Auto) 11.5 H Eos % (Auto) 5.3 H Baso % (Auto) 1.9 Lymph # (Auto) 0.8 L [place] # (Auto) 0.2 Eos # (Auto) 0.1 Baso # (Auto) 0.0 Abs Immat Gran (auto) 0.02 Absolute Neuts (auto) 0.9 L Absolute Nucleated RBC 0.000 Nucleated RBC % (auto) 0.0 Smear Tech's Comments VERIFIED Anion Gap 9 L Estim Creat Clear Calc 84.0 Estimated GFR > 60 Random Glucose 91 Calcium 7.8 L Vancomycin Trough 3.8 L Assessment and Plan (1) Leukopenia: Status: Acute (2) Esophageal perforation: Status: Acute Assessment and Plan: 41yo F alf 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, no other medical problems, sent in for reported tonic-clonic movements though no seizure history [but 2 visits to [facility] in last 3 mo for syncope] admitted for hypotension,found to have extensive pneumomediastinum with evidence of esophageal perforation ?1.esophageal perforation/ pneumomediastinum ? No acute issues overnight,denies chest pain, no shortness of breath, no overnight fever chills, remains hemodynamically stable with soft BP. vanco trough 12.1 completed? vancomycin , off? IV Zosyn, and IV fluconazole, TPN has PICC line placed on 10/02/21 ? 1/2? blood culture likely Corynebacterium unlikely pathogen ? Renal functions stable WBC fluctuaing between 2-3, ? Echo showed EF 60-65%, no aortic valve stenosis noted, normal diastolic function ? Discussed with Thoracics surgery:? Barium swallow patient could not able to participate, refused to drink contrast. cxr repeated -?No appreciable pneumomediastinum remains. No pneumothorax. Normal heart size and pulmonary vascularity. Lungs are clear.? ? Discussed with thoracic surgery and patient sister in detail - now on full liquid diet as per? thoracic . ?thoracic follow up in am - For further advancement of diet. And plan. 2.?leukopenia: in WBC imrpoving flactuating-between 2-3 range, today 2.1,jake tropenic precaution ?Hypotension ?not septic, soft BP likely baseline. continue to moniter discussed with Hematology probably leukopenia related to antibiotic use, patient is off antibiotics will continue to monitor. 3.hypoK ?repleted, resolved 4.possible seizure activity: - no recurrent seizures noted, continue seizure precautions eeg-nondisgnostic for seizure. ?? seen by psych, patient found to have no decision-making capacity, therefore invoked healthcare proxy mother and sister are both healthcare proxys [phone]? and her sister Erickson # [phone]. ?VTE ppx - SCDs, Quality Stroke Does the patient have a stroke diagnosis?: No VTE Prior VTE?: No VTE Risk Level:: Medical - moderate - high VTE Device Contraindication: Treatment Not Indicated VTE Drug Contraindication: N/A - Med Ordered
[2021-10-13] MEDS: Potassium Chloride Packet 20 MEQ PACKET PO (17:19)
[2021-10-14] VITALS (7 sets, daily range): BP systolic 107–123; BP diastolic 50–63; PULSE 66–89; RESP 14–20; TEMP 36.2–37.1; O2SAT 96–99
[2021-10-14] MEDS: 0.9 % Sodium Chloride 1,000 ML 80 ML IVCONT ×2 (03:40→16:31)
[2021-10-14] MEDS: Pantoprazole Sodium 40 MG/10 ML VIAL 20 MG IVPUSH (05:24)
--- NOTE | 2021-10-14 07:38 | HO.PM.IMPN ---
Subjective Subjective Date of Service: 10/14/21 Interval History: ?esophageal tear, leukopenia Review of Systems patient is tolerating full liquid diet, denies any chest pain or shortness of breath or abdominal pain or fever or chills. Physical Exam Vital Signs: Vital Signs: Last Vital Signs Temp 98.1 F 10/14/21 02:57 Pulse 77 10/14/21 02:57 Resp 18 10/14/21 02:57 BP 107/50 L 10/14/21 02:57 Pulse Ox 98 10/14/21 02:57 BMI result Body Mass Index 21.5 Gen:? Awake alert, no acute distress,?sister erickson help for feeding Lungs: clear to auscultation bilaterally Heart: regular rate and rhythm, no murmurs Abd: soft, non-tender, non-distended Ext: no edema or cyanosis Skin: warm/well-perfused,no subcutaneous emphysema palpable Neuro:? Awake, alert, in no distress Psych: impaired insight Objective Data Active Medications Sodium Chloride (Ns) 1,000 mls @ 80 mls/hr IVCONT .[id number] [facility] Last Admin: 10/14/21 03:40 Dose: 80 mls/hr Documented by: AMANDO Ondansetron HCl (Ondansetron Hcl 4 Mg/2 Ml Vial) 4 mg IVPUSH Q6H PRN PRN Reason: Nausea Last Admin: 10/12/21 15:17 Dose: 4 mg Documented by: JORGE Pantoprazole Sodium (Pantoprazole Sodium 40 Mg/10 Ml Vial) 20 mg IVPUSH DAILY@0630 [facility] Last Admin: 10/14/21 05:24 Dose: 20 mg Documented by: AMANDO Pharmacy Consult (Consult Rx Vancomycin Dosing) 1 each MISCELLANE DAILY PRN PRN Reason: Consult order Labs CBC & Chem 7: 10/14/21 10:32 10/14/21 10:32 Labs: Laboratory Results - last 24 hr 10/13/21 10/13/21 10/13/21 13:46 13:46 13:46 MCV 96.5 MCH 32.8 MCHC 34.0 RDW 14.4 Plt Count 248 MPV 9.9 Immature Gran % (Auto) 1.0 H Neut % (Auto) 43.9 L Lymph % (Auto) 36.4 [place] % (Auto) 11.5 H Eos % (Auto) 5.3 H Baso % (Auto) 1.9 Lymph # (Auto) 0.8 L [place] # (Auto) 0.2 Eos # (Auto) 0.1 Baso # (Auto) 0.0 Abs Immat Gran (auto) 0.02 Absolute Neuts (auto) 0.9 L Absolute Nucleated RBC 0.000 Nucleated RBC % (auto) 0.0 Smear Tech's Comments VERIFIED Anion Gap 9 L Estim Creat Clear Calc 84.0 Estimated GFR > 60 Random Glucose 91 Calcium 7.8 L Vancomycin Trough 3.8 L Assessment and Plan (1) Leukopenia: Status: Acute (2) Esophageal perforation: Status: Acute Assessment and Plan: 41yo F [facility] 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, no other medical problems, sent in for reported tonic-clonic movements though no seizure history [but 2 visits to [facility] in last 3 mo for syncope] admitted for hypotension,found to have extensive pneumomediastinum with evidence of esophageal perforation ?1.esophageal perforation/ pneumomediastinum ? No acute issues overnight,denies chest pain, no shortness of breath, no overnight fever chills, remains hemodynamically stable with soft BP. vanco trough 12.1 completed? vancomycin , off? IV Zosyn, and IV fluconazole, TPN has PICC line placed on 10/02/21 ? 1/2? blood culture likely Corynebacterium unlikely pathogen ? Renal functions stable WBC fluctuaing between 2-3, ? Echo showed EF 60-65%, no aortic valve stenosis noted, normal diastolic function ? Discussed with Thoracics surgery:? Barium swallow patient could not able to participate, refused to drink contrast. cxr repeated -?No appreciable pneumomediastinum remains. No pneumothorax. Normal heart size and pulmonary vascularity. Lungs are clear.? ? Discussed with thoracic surgery and patient sister in detail - [facility] soft diet . ?thoracic follow up-if she tolerates diet from 24 hrs -then possible discharge planing 2.?leukopenia: in WBC imrpoving flactuating-between 2-3 range, today 2.1,neutropenic precaution ?Hypotension ?not septic, soft BP likely baseline. continue to moniter cbc ?discussed with Hematology probably leukopenia related to antibiotic use, patient is off antibiotics will continue to monitor. 3.hypoK ?repleted, resolved 4.possible seizure activity: - no recurrent seizures noted, continue seizure precautions eeg-nondisgnostic for seizure. ?? seen by psych, patient found to have no decision-making capacity, therefore invoked healthcare proxy mother and sister are both healthcare proxys [phone]? and her sister Erickson # [phone]. Pt eval. ?VTE ppx - SCDs, Quality Stroke Does the patient have a stroke diagnosis?: No VTE Prior VTE?: No VTE Risk Level:: Medical - moderate - high VTE Device Contraindication: Treatment Not Indicated VTE Drug Contraindication: N/A - Med Ordered
[2021-10-14 10:41] LABS: Baso%MD 1.6 %; Eos%MD 4.5 %; Hematocrit 34.3 % (37.0-47.0); Hemoglobin 11.7 g/dl (12.0-16.0); IG%MD 0.8 %; Lymph%MD 42.2 %; Mean Corpuscular HGB Conc 34.1 g/dl (31.0-35.0); Mean Corpuscular Hemoglobin 32.5 pg (27.0-33.0); Mean Corpuscular Volume 95.3 fL (80.0-98.0); Mean Platelet Volume 9.8 fL (9.4-12.3); Mono%MD 11.1 %; Neut%MD 39.8 %; Platelet Count 267 X10*3/uL (160-400); Red Cell Distribution Width 14.2 % (11.0-16.0); White Blood Count 2.4 X10*3/uL (4.8-10.8)
[2021-10-14 10:56] LABS: Anion Gap 14 (12-20); Blood Urea Nitrogen 2 mg/dL (9-16); Calcium 8.1 mg/dL (8.4-10.2); Carbon Dioxide 22 mmol/L (22-29); Chloride 107 mmol/L (96-108); Creatinine Clr Calc Pharmacy 89.8; Estimated Glomerular Filt Rate > 60; Glucose Random 85 mg/dL (60-115); Potassium 3.2 mmol/L (3.3-5.1); Sodium 140 mmol/L (135-145)
[2021-10-14 11:22] LABS: Atypical Lymphs Percent Manual 1 % (0-6); Band Neutrophils Percent 4 % (3-5); Basophils Percent Manual 2 % (0-2); Eosinophils Absolute Manual 0.1 X10*3/uL (0.0-0.4); Eosinophils Percent Manual 5 % (0-4); Lymphocytes Absolute Manual 0.8 X10*3/uL (1.2-4.9); Lymphocytes Percent Manual 35 % (20-40); Monocytes Absolute Manual 0.2 X10*3/uL (0.1-1.2); Monocytes Percent Manual 9 % (2-11); Neutrophils Absolute Manual 1.2 X10*3/uL (2.0-8.3); Neutrophils Percent Manual 44 % (45-73)
[2021-10-14 11:23] LABS: Acanthocytes 2+ (3-5) /OIF; RBC Morphology NOTED; Schistocytes 1+ (0-2) /OIF
[2021-10-14 11:24] LABS: Platelet Estimate NORMAL (NORMAL); Platelet Morphology Comment NORM
--- NOTE | 2021-10-14 13:19 | MHC.CM.PN ---
PER MULTIDISCIPLINARY ROUNDS PLAN TO ADVANCE TO SOFT DIET TODAY, POSSIBLE D/C 1-2 DAYS. SHELTER UPDATED, CM WILL CONT TO FOLLOW D/C NEEDS.
--- NOTE | 2021-10-14 13:32 | MHC.CLN ---
F/U DIET=FULL LIQUIDS; ENSURE CLEAR TID (720 KCAL, 24 G PROTEIN). INTAKE X 3 DAYS: 0% DINNER, 25-100% BREAKFAST AND LUNCH. CONTINUE TO FOLLOW FOR DIET ADVANCEMENT, INTAKE, AND DIET TOLERANCE.
--- NOTE | 2021-10-14 13:38 | P.PNTS_ITS ---
Subjective Subjective Date of Service: 10/14/21 Interval history: Patient has been on a full liquid diet for the past several days. Patient states she has been tolerating this well without dysphagia or odynophagia although unclear how reliable her responses are. To all other questions such as if she has any fever, chills, neck pain, chest pain, abdominal pain, nausea, vomiting, bowel movements, and if she has been ambulating she responds I am fine, everything is good . DIAGNOSTICS: Laboratory Tests 10/14/21 10:32 WBC 2.4 L Hgb 11.7 L Hct 34.3 L Plt Count 267 Laboratory Tests 10/09/21 10/10/21 10/11/21 08:07 12:43 06:34 WBC 3.3 L 2.6 L 2.1 L 10/12/21 10/13/21 03:59 13:46 WBC 1.7 L 2.1 L Laboratory Tests 10/14/21 10:32 Sodium 140 Potassium 3.2 L Chloride 107 Carbon Dioxide 22 BUN 2 L Creatinine 0.58 Physical Exam Vital Signs: Vital Signs: Last Vital Signs Temp 97.2 F 10/14/21 11:47 Pulse 71 10/14/21 11:47 Resp 20 10/14/21 11:47 BP 109/55 L 10/14/21 11:47 Pulse Ox 97 10/14/21 11:47 BMI result Body Mass Index 21.5 General: No acute distress, resting comfortably in bed, well developed Head: Normocephalic, atraumatic, symmetric Eyes: Sclera anicteric, eyelids without edema or erythema,+EOMS intact ENT: Oral mucosa and tongue are moist without lesions or exudates Neck: Soft, supple, *symmetric, trachea midline, no crepitus, no mass visualized or palpated Cardiovascular: Regular rate and rhythm, no murmur/rubs/gallops, BUE and BLE without edema, no calf tenderness bilaterally Respiratory: Lungs CTA B, breathing nonlabored, speaking in full sentences, on room air. No use of accessory muscles. No crepitus. Gastrointestinal: Soft, non-tender, non-distended, +normoactive bowel sounds. Skin: Warm and dry throughout, no rashes Lymphatic: no cervical, supraclavicular, infraclavicular lymphadenopathy noted Neurological: Alert, no focal neurological deficit noted Psychiatric: No agitation Procedures Date of Service Date of Service: 10/14/21 Progress Note: A&P Assessment and plan (1) Esophageal perforation: Status: Acute Assessment and Plan: Patient is a 41 year old female with Down Syndrome who presented to the hospital from her nursing home after tonic-clonic movements concerning for seizure.? During workup she was found to have pneumomediastinum and evidence of small esophageal perforation.? Unknown cause as patient denies any recent retching, vomiting, or dysphasia although she is a poor historian. * Patient has been on a full liquid diet for several days and appears to be tolerating this well. * No s/sx active infection or leak. * Increase diet to mechanical soft today (no straws, no carbonation). Will continue this diet x 2 weeks, and then can increase to regular diet as tolerated after that. * Can take PO meds crushed or in liquid format for the next 2 weeks, then can resume taking pills whole after that as tolerated. * Continue to monitor for any increased fever, chest/abdominal pain, or SQ air. * If patient tolerates mech soft overnight she can be discharged with outpatient Thoracic followup. * Patient should only be discharged if where she is going can control her PO intake and altered diet needs for the next 2 weeks. Patient is not reliable to follow diet instructions and this is a critical part of her healing. Case discussed with Dr. Jackson. (2) Pneumomediastinum: Status: Acute (3) Leukopenia: Status: Acute Fall Risk Details Current Medications: Current Medications Sodium Chloride (Ns) 1,000 mls @ 80 mls/hr IVCONT .[id number] [facility] Last Admin: 10/14/21 03:40 Dose: 80 mls/hr Documented by: Ondansetron HCl (Ondansetron Hcl 4 Mg/2 Ml Vial) 4 mg IVPUSH Q6H PRN PRN Reason: Nausea Last Admin: 10/12/21 15:17 Dose: 4 mg Documented by: Pantoprazole Sodium (Pantoprazole Sodium 40 Mg/10 Ml Vial) 20 mg IVPUSH DAILY@0630 [facility] Last Admin: 10/14/21 05:24 Dose: 20 mg Documented by: Pharmacy Consult (Consult Rx Vancomycin Dosing) 1 each MISCELLANE DAILY PRN PRN Reason: Consult order Time Spent With Patient Time: Total time spent is greater than 50% in coordination of care (as documented) at patient's floor/unit and/or counseling patient: Time with patient: 15 - 24 minutes Quality Stroke Does the patient have a stroke diagnosis?: No VTE Prior VTE?: No VTE Risk Level:: Medical - moderate - high VTE Device Contraindication: Treatment Not Indicated VTE Drug Contraindication: N/A - Med Ordered
[2021-10-15 03:40] VITALS: BP 118/59; PULSE 74; RESP 18; TEMP 36.9; O2SAT 97
[2021-10-15] MEDS: 0.9 % Sodium Chloride 1,000 ML 80 ML IVCONT (04:30)
[2021-10-15] MEDS: Pantoprazole Sodium 40 MG/10 ML VIAL 20 MG IVPUSH (05:52)
[2021-10-15 08:00] VITALS: BP 115/54; BP 144/63; PULSE 73; PULSE 74; RESP 20; TEMP 36.9; O2SAT 98
[2021-10-15 11:20] VITALS: BP 109/53; PULSE 77; RESP 20; TEMP 36.6; O2SAT 98
[2021-10-15 11:53] VITALS: BP 109/53; PULSE 77; O2SAT 98
--- NOTE | 2021-10-15 14:24 | P.PNTS_ITS ---
Subjective Subjective Date of Service: 10/15/21 Interval history: Unable to obtain a review of systems due to patient's unwillingness to answer questions. Physical Exam Vital Signs: Vital Signs: Last Vital Signs Temp 97.8 F 10/15/21 11:20 Pulse 77 10/15/21 11:53 Resp 20 10/15/21 11:20 BP 109/53 L 10/15/21 11:53 Pulse Ox 98 10/15/21 11:53 BMI result Body Mass Index 21.5 Const: General: comfortable, no acute distress and lethargic Orientation/consciousness: lethargic HENMT: Head: Yes atraumatic Eyes: Conjunctivae: conjunctivae normal Sclerae: sclerae normal Neck: Neck: Yes trachea midline, Yes supple and Yes other ( No subcutaneous emphysema noted on physical exam.) Resp: Effort & Inspection: normal respiratory effort Cardio: Jugular venous distension: no JVD Rate: regular rate GI: Inspection: Yes normal to inspection Palpation (GI): Soft to palpation and nontender Auscultation: normal bowel sounds Extrem: General: Yes normal to inspection and Yes no clubbing, cyanosis or edema Procedures Date of Service Date of Service: 10/15/21 Progress Note: A&P Assessment and plan (1) Leukopenia: Status: Acute (2) Esophageal perforation: Status: Acute (3) Pneumomediastinum: Status: Acute Assessment and Plan: Patient is a 41 year old female with Down Syndrome presenting to the hospital from her residential after tonic-clonic movements concerning for seizure.? During workup she was found to have pneumomediastinum and evidence of small esophageal perforation.? Unknown cause as patient denies any recent retching, vomiting, or dysphasia although she is a poor historian. * Patient continues to remain hemodynamically stable. Pressures remain soft but this has been baseline for her. WBC remains stable. * Patient was started on soft diet yesterday. Nursing is unaware if patient has yet tolerated a mechanical soft diet at this point. Patient continues to refuse to eat unless sister is there. After discussion with thoracic surgeon Dr.Laki Jackson at this point he feels comfortable in sending patient home on a mechanical soft diet and to continue to abstain from any carbonated beverages and straws. Recommend Augmentin and liquid formula for 2 weeks. Patient has a follow-up with in 2 weeks at the thoracic surgical office at [facility] on October 30 at 1030. Patient should be accompanied with someone who can provide a reliable history as to how she has been tolerating her soft mechanical diet. Patient should also be sent home with a antiemetic for any nausea or vomiting that may occur. All pills should be crushed and placed into a slurry prior to ingestion. * Continue with conservative management with rest, PRN analgesia if needed, and avoidance of maneuvers that increase pulmonary pressure such as forced expiration or Valsalva maneuvers Discharge recommendations. DIET: - You will be on a soft mechanical diet until you are seen in the office. DO NOT advance your diet unless told to do so by the surgeon. - Eat frequent small meals throughout the day. Avoid large meals. - No straws or carbonated beverages. - You should avoid laying flat for 2-3 hours after eating. ACTIVITY: - You should be out of bed and walking at least 3x per day. - No lifting anything heavier than 10lb x 4 weeks (ie, gallon of milk). - Continue to use the incentive spirometer at least 10x per day to aide with keeping the lungs expanded. INCISION CARE: - Keep all incisions clean and dry. - Ok to shower. - Gently wash incisions with soap and water. No scrubbing the areas. - No tub baths, swimming, etc. for the next 2 weeks. MEDICATION: - Continue to take your anti-nausea medicine as directed. It is very important to control any nausea to avoid retching/vomiting. - All medications should be crushed when taken. FOLLOWUP: - You have an appointment with Dr. Jackson at the [facility] office on 10/30/2021 @ 10:30 for a followup. [facility], 1st floor - Call the thoracic surgery office @ [phone] if you have any questions or concerns. Case discussed with Dr. Jackson. Thank you for this consult. We will continue to follow along. If patient's clinical condition deteriorates, please contact Thoracic Surgery immediately. Fall Risk Details Current Medications: Current Medications Ondansetron HCl (Ondansetron Hcl 4 Mg/2 Ml Vial) 4 mg IVPUSH Q6H PRN PRN Reason: Nausea Last Admin: 10/12/21 15:17 Dose: 4 mg Documented by: Pantoprazole Sodium (Pantoprazole Sodium 40 Mg/10 Ml Vial) 20 mg IVPUSH DAILY@0630 [facility] Last Admin: 10/15/21 05:52 Dose: 20 mg Documented by: Time Spent With Patient Time: Total time spent is greater than 50% in coordination of care (as documented) at patient's floor/unit and/or counseling patient: Time with patient: 15 - 24 minutes Quality Stroke Does the patient have a stroke diagnosis?: No VTE Prior VTE?: No VTE Risk Level:: Medical - moderate - high VTE Device Contraindication: Treatment Not Indicated VTE Drug Contraindication: N/A - Med Ordered
--- NOTE | 2021-10-15 14:53 | HO.PM.IMPN ---
Subjective Subjective Date of Service: 10/15/21 Interval History: cc: LOC, convulsions interval history: patient not answering Review of Systems Review of Systems: Yes Other (wont answer) Physical Exam Vital Signs: Vital Signs: Last Vital Signs Temp 97.8 F 10/15/21 11:20 Pulse 77 10/15/21 11:53 Resp 20 10/15/21 11:20 BP 109/53 L 10/15/21 11:53 Pulse Ox 98 10/15/21 11:53 BMI result Body Mass Index 21.5 General: Alert, no acute distress, not answering questions Resp: CTA bilateral, no accessory muscles used CVS: S1,S2,RRR GI: soft, non tender, non distended Neuro: motor grossly intact, alert Psych: impaired insight Objective Data Active Medications Ondansetron HCl (Ondansetron Hcl 4 Mg/2 Ml Vial) 4 mg IVPUSH Q6H PRN PRN Reason: Nausea Last Admin: 10/12/21 15:17 Dose: 4 mg Documented by: JORGE Pantoprazole Sodium (Pantoprazole Sodium 40 Mg/10 Ml Vial) 20 mg IVPUSH DAILY@0630 [facility] Last Admin: 10/15/21 05:52 Dose: 20 mg Documented by: MELANY Labs CBC & Chem 7: 10/14/21 10:32 10/14/21 10:32 Assessment and Plan (1) Leukopenia: Status: Acute (2) Esophageal perforation: Status: Acute Assessment and Plan: 41yo F [facility] 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, no other medical problems, sent in for reported tonic-clonic movements though no seizure history [but 2 visits to [facility] in last 3 mo for syncope] admitted for hypotension,found to have extensive pneumomediastinum with evidence of esophageal perforation esophageal perforation/ pneumomediastinum conservative management restarted mechanical soft cleared for discharge by thoracic monitor intake at [facility], oral suspension ppi and augmentin for 2 weeks, follow up thoracic outpatient monitor cbc while on augmentin cxr repeated -?No appreciable pneumomediastinum remains. No pneumothorax. Normal heart leukopenia likely related to abc, monitor while on augmentin tonic clonic LOC unlikely seizure most likely hypotensive syncoep from hypovolemia ?? seen by psych, patient found to have no decision-making capacity, therefore invoked healthcare proxy mother and sister are both healthcare proxys [phone]? and her sister Ruth # [phone]. Pt eval. ?VTE ppx - SCDs, Quality Stroke Does the patient have a stroke diagnosis?: No VTE Prior VTE?: No VTE Risk Level:: Medical - moderate - high VTE Device Contraindication: Treatment Not Indicated VTE Drug Contraindication: N/A - Med Ordered
--- NOTE | 2021-10-15 15:00 | P.DS_ITS ---
DS: Providers Provider Date of Service: 10/15/21 Date of admission: 09/27/21 20:59 Primary care physician: Unknown Physician Consults: 09/27/21 20:58 Consult to Neurology Routine Consulting Provider: [facility] Reason for consultation: tonic clonic movements 09/28/21 00:29 Consult to Gastroenterology Routine Consulting Provider: Emmanuel Scales Reason for consultation: pneumomediastinum, ?boerhoves - poor historian 09/28/21 01:16 Consult to Thoracic Surgery Routine Consulting Provider: Kaylee Jackson Reason for consultation: extensive pneumomediastinum, unclear etiology 09/28/21 10:12 Consult to Critical Care Stat Consulting Provider: Kendall Lang Reason for consultation: Undifferentiated hypotension 09/28/21 16:45 Consult to Psychiatry Routine Consulting Provider: Psych Covering Reason for consultation: Downs. Sister reports paranoia- feels that care home trying to hurt her 10/01/21 10:48 Consult to Psychiatry Routine Consulting Provider: Keren Yu Reason for consultation: competency Has provider been notified: No 10/12/21 12:17 Consult to Hematology / Oncology Routine Consulting Provider[place] [facility] Reason for consultation: persistent leucopenia/ neutropenia -unclear etiology DS: Diagnosis Discharge Diagnosis (1) Leukopenia: Status: Acute (2) Esophageal perforation: Status: Acute DS: Summary Hospital Course Hospital Course: patient was admitted for loss of consciousness due to hypotension due to hypovolemia from poor p.o. intake. Workup included CT which revealed pneumomediastinum and follow-up barium study was consistent with esophageal perforation. Patient was unable to give history to determine exact etiology. She was treated conservatively with empiric anti biotics and antifungals, NPO with TPN, PPI. After about 2 weeks patient was rechallenged with oral diet, she did not participate with repeat barium study. She appears to be tolerating mechanical soft diet. She will be discharged back to care home on 2 weeks of Augmentin, oral suspension Prilosec, Zofran as needed for nausea, she should follow-up with thoracic on October 30, she should be accompanied by someone who was been keeping track of her oral intake at the care home. Of note patient did have leukopenia while in hospital, was attributed to antibiotics, this should be monitored while she is on Augmentin. Time Spent with Patient Time attestation: Total time spent providing and/or coordinating discharge services: Discharge coordination time: Greater than 30 minutes Quality: Stroke Does the patient have a stroke diagnosis?: No Physical Exam Vital Signs: Vital Signs: Last Vital Signs Temp 97.8 F 10/15/21 11:20 Pulse 77 10/15/21 11:53 Resp 20 10/15/21 11:20 BP 109/53 L 10/15/21 11:53 Pulse Ox 98 10/15/21 11:53 BMI result Body Mass Index 21.5 General: Alert, no acute distress, not answering questions Resp:? CTA bilateral, no accessory muscles used CVS: S1,S2,RRR GI: soft, non tender, non distended Neuro:? motor grossly intact, alert Psych:? impaired insight? Discharge Plan Discharge Patient Disposition: Xfer Other Discharge Diagnosis: esophogeal rupture Referrals: Kaylee Jackson MD [Physician] - 1 Week Physician,Esthela Selby [Primary Care Provider] - 1 Week Discharge Medications: New amoxicillin-pot clavulanate 600-42.9 mg/5 mL suspension for reconstitution 5 ml PO BID 14 Days Qty: 140 RF: 0 omeprazole magnesium 10 mg susp,delayed release for recon 20 mg PO DAILY Qty: 30 RF: 0 ondansetron HCl 4 mg tablet 4 mg PO Q8H PRN (Reason: nausea and vomiting) 4 Days Qty: 30 RF: 0 Continued acetaminophen 325 mg Tablet 650 mg PO Q4H PRN (Reason: pain or fever) RF: 0 Discontinued chlorhexidine gluconate [Peridex] 0.12 % Mouthwash 15 ml BUCCAL BID RF: 0 Diet: other Activity on Discharge: As tolerated Stand Alone Forms: Patient Portal Discharge page Other Ambulatory Orders: Complete Blood Count no Diff (Routine) Timeframe: 1 Week Facility: [facility] - Location: Laboratory Ordered By: Jean Reno Care Plan Goals: recovery Health Concerns: esophogeal rupture Plan of Treatment: mechanical soft diet, strict documentation of oral intake, liquids prilosec, liquid augmentin for 2 weeks, follow up with thoracic surgery Assessment: DIET: - You will be on a soft mechanical diet until you are seen in the office.? DO NOT advance your diet unless told to do so by the surgeon. - Eat frequent small meals throughout the day.? Avoid large meals. - No straws or carbonated beverages. - You should avoid laying flat for 2-3 hours after eating. ACTIVITY: - You should be out of bed and walking at least 3x per day. - No lifting anything heavier than 10lb x 4 weeks (ie, gallon of milk). - Continue to use the incentive spirometer at least 10x per day to aide with keeping the lungs expanded. INCISION CARE: - Keep all incisions clean and dry.? - Ok to shower. - Gently wash incisions with soap and water.? No scrubbing the areas. - No tub baths, swimming, etc. for the next 2 weeks. MEDICATION: - Continue to take your anti-nausea medicine as directed.? It is very important to control any nausea to avoid retching/vomiting. - All medications should be crushed when taken. FOLLOWUP: - You have an appointment with Dr. Jackson at the [place] [facility] office on 10/30/2021 @ 10:30 for a followup. ? [facility], 1st floor - Call the thoracic surgery office @ [phone] if you have any questions or concerns.?
--- NOTE | 2021-10-15 15:46 | MHC.CM.PN ---
DDS ANGEL GALLAGHER CALLED THIS RN OUTPATIENT SURGERY ([phone]) PATIENT IS UNABLE TO RETURN HOME, THERE IS NOT ADEQUATE STAFFING. SHE ASKS FOR REHAB REFERRALS. IT WAS EXPLAINED THAT IF PATIENT DOES NOT PARTICIAPTE IN REHAB, SHE WILL LIKELY BE DISCHARGED BACK TO RETIREMENT SETTING. [facility] REPORTS WE WILL DEAL WITH THAT THEN . CONVERSATION WITH HCP/SISTER (IN ROOM) WHO IS AGREEABLE OT ANY FACILITY WILLING TO TAKE PATIENT. REFERRAL PLACED TO THE [facility]. ATTEMPTS WILL BE MADE TO HAVE PATIENT [id number].
[2021-10-15 16:00] VITALS: BP 109/54; BP 113/61; PULSE 69; PULSE 72; RESP 14; TEMP 36.9; O2SAT 97
[2021-10-15 20:00] VITALS: BP 92/48; PULSE 65; RESP 16; TEMP 36.9; O2SAT 98
[2021-10-16] VITALS (9 sets, daily range): BP systolic 85–110; BP diastolic 49–59; PULSE 59–80; RESP 16–20; TEMP 36.6–37.7; O2SAT 95–98
[2021-10-16 05:46] LABS: Hematocrit 35.6 % (37.0-47.0); Hemoglobin 12.1 g/dl (12.0-16.0); Mean Corpuscular Hemoglobin 32.7 pg (27.0-33.0); Mean Corpuscular Volume 96.2 fL (80.0-98.0); Mean Platelet Volume 9.7 fL (9.4-12.3); Platelet Count 286 X10*3/uL (160-400); Red Cell Distribution Width 14.4 % (11.0-16.0)
[2021-10-16 06:04] LABS: White Blood Count 2.2 X10*3/uL (4.8-10.8)
[2021-10-16] MEDS: Pantoprazole Sodium 40 MG/10 ML VIAL 20 MG IVPUSH (06:07)
[2021-10-16 06:25] LABS: Anion Gap 10 (12-20); Blood Urea Nitrogen < 2 mg/dL (9-16); Calcium 8.3 mg/dL (8.4-10.2); Carbon Dioxide 27 mmol/L (22-29); Chloride 107 mmol/L (96-108); Creatinine Clr Calc Pharmacy 89.8; Estimated Glomerular Filt Rate > 60; Glucose Fasting 78 mg/dL (60-99); Potassium 3.4 mmol/L (3.3-5.1); Sodium 141 mmol/L (135-145)
--- NOTE | 2021-10-16 10:56 | PC.NURSE ---
This RN and clinical coordinator attempted to give PO augmentin to patient. Patient refused medication. Dr. Amaro made aware.
--- NOTE | 2021-10-16 12:05 | P.PNIM_ITS ---
Subjective Subjective Date of Service: 10/16/21 Interval History: Patient seen and examined at bedside. She denies any acute complaints but is refusing her p.o. medications including Augmentin. Her sister has been involved, sister at bedside. patient adamant that she is fine and she does not need the p.o. antibiotics. She reports no acute issues including no chest pain, no abdominal pain nausea or vomiting, she is tolerating her p.o. intake. case for antibiotics discussed with sister at bedside who is her healthcare proxy. She discussed it with patient and patient's continuously refusing. Alternative would be to start her on IV antibiotics. Review of Systems Review of Systems: Yes all other systems are reviewed and are negative Physical Exam Vital Signs: Vital Signs: Last Vital Signs Temp 98.4 F 10/16/21 11:17 Pulse 75 10/16/21 11:44 Resp 18 10/16/21 11:17 BP 94/54 L 10/16/21 11:44 Pulse Ox 98 10/16/21 11:44 BMI result Body Mass Index 21.5 Const: General: cooperative and no acute distress Eyes: General: appearance normal, both eyes and all related structures Resp: Effort & Inspection: normal respiratory effort Auscultation: clear to auscultation bilaterally Cardio: Rate: regular rate Rhythm: regular rhythm GI: Palpation (GI): Soft to palpation Auscultation: normal bowel sounds Objective Data Active Medications Ondansetron HCl (Ondansetron Hcl 4 Mg/2 Ml Vial) 4 mg IVPUSH Q6H PRN PRN Reason: Nausea Last Admin: 10/12/21 15:17 Dose: 4 mg Documented by: JORGE Pantoprazole Sodium (Pantoprazole Sodium 40 Mg/10 Ml Vial) 20 mg IVPUSH DAILY@0630 [facility] Last Admin: 10/16/21 06:07 Dose: 20 mg Documented by: ISREAL Labs CBC & Chem 7: 10/16/21 05:21 10/16/21 05:21 Labs: Laboratory Results - last 24 hr 10/16/21 10/16/21 05:21 05:21 MCV 96.2 MCH 32.7 MCHC 34.0 RDW 14.4 Plt Count 286 MPV 9.7 Absolute Nucleated RBC 0.000 Nucleated RBC % (auto) 0.0 Anion Gap 10 L Estim Creat Clear Calc 89.8 Estimated GFR > 60 Fasting Glucose 78 Calcium 8.3 L Assessment and Plan (1) Leukopenia: Status: Acute (2) Esophageal perforation: Status: Acute (3) Pneumomediastinum: Status: Acute Assessment and Plan: patient was admitted for loss of consciousness due to hypotension due to hypovolemia from poor p.o. intake.? Workup included CT? which revealed pneumomediastinum? and follow-up barium study was consistent with esophageal perforation. She appears to be tolerating mechanical soft diet.?[facility] cannot provide services for her the refore she will have to be evaluated with a different rehab/NH. Pt was also swtiched to PO augmentin with plan x2 wks but pt has refused to take anything PO even with the help of her sister. she is minimally copperative and will not take PO regardless of the amount of encouragement. Will switch her back to IV antibiotics Unasyn. Case management working on placement for pt will most lilkely need midline prior to discharg e #esophageal perforation/ pneumomediastinum conservative management restarted mechanical soft cleared for discharge by thoracic monitor intake , refusing oral intake of abiotics, switched to IV as above follow up thoracic outpatient monitor cbc while on abx cxr repeated -?No appreciable pneumomediastinum remains. No pneumothorax. Normal heart leukopenia - stable - likely related to abc, monitor cbc tonic clonic LOC unlikely seizure most likely hypotensive syncoep from hypovolemia ?? seen by psych, patient found to have no decision-making capacity, therefore invoked healthcare proxy mother and sister are both healthcare proxys [phone]? and her sister Ruth # [phone]. sister going back home- she is not local but mother can be the next point of contact Quality Stroke Does the patient have a stroke diagnosis?: No VTE Prior VTE?: No VTE Risk Level:: Medical - moderate - high VTE Device Contraindication: Treatment Not Indicated VTE Drug Contraindication: N/A - Med Ordered
--- NOTE | 2021-10-16 12:56 | MHC.CM.PN ---
PLAN IS NOW 2 WEEKS OF IV UNASYN. [facility] DOES NOT HAVE A BED REFERRAL NOW TO [facility]. CASE MANAGEMENT CONTINUING TO FOLLOW
--- NOTE | 2021-10-16 13:04 | MHC.CM.PN ---
Addendum entered by Zully Metcalf 10/16/21 14:11: CURRENTLY, NO [facility] BED OFFERS [facility] WILL[facility] FOLLOW IF A PICC IS PACED AND PATIENT REMAINS COMPLIANT. HOSPITALIST MADE AWARE Original Note: PATIENT IS NOW COVID-19 BOOSTERED. CARD UPLOADED INTO [employer]
[2021-10-16] MEDS: Ampicillin Sodium/Sulbactam Na 3 GM in 0.9 % Sodium Chloride 100 ML IV ×2 (13:31→18:34)
--- NOTE | 2021-10-16 14:35 | MHC.CLN ---
F/U DIET=REGULAR, NDD2 OF 10/14. NO SUPPLEMENTS. APPEARS TO BE TOLERATING DIET. EATING WELL WITH MOST MEALS 75-100% X 3 DAYS. CONTINUE TO FOLLOW FOR DIET ADVANCEMENT, INTAKE, AND DIET TOLERANCE.
[2021-10-17] VITALS (9 sets, daily range): BP systolic 91–135; BP diastolic 47–69; PULSE 64–100; RESP 17–20; TEMP 36.1–37.4; O2SAT 96–100
[2021-10-17] MEDS: Ampicillin Sodium/Sulbactam Na 3 GM in 0.9 % Sodium Chloride 100 ML IV ×4 (01:16→21:23)
[2021-10-17] MEDS: Pantoprazole Sodium 40 MG/10 ML VIAL 20 MG IVPUSH (05:16)
--- NOTE | 2021-10-17 11:00 | P.PNIM_ITS ---
Subjective Subjective Date of Service: 10/17/21 Interval History: pt seen and examined at bedside. has no acute complaints. no chest pain, no sob, no abd pain. eating and drinking well. awaiting placement Review of Systems Review of Systems: Yes all other systems are reviewed and are negative Physical Exam Vital Signs: Vital Signs: Last Vital Signs Temp 98.9 F 10/17/21 08:21 Pulse 97 10/17/21 08:21 Resp 20 10/17/21 08:21 BP 99/52 L 10/17/21 08:21 Pulse Ox 100 10/17/21 08:21 BMI result Body Mass Index 21.5 Const: General: cooperative and no acute distress Resp: Effort & Inspection: normal respiratory effort Auscultation: clear to auscultation bilaterally Cardio: Rate: regular rate Rhythm: regular rhythm GI: Palpation (GI): Soft to palpation Auscultation: normal bowel sounds Extrem: General: Yes normal to inspection and Yes no pedal edema Objective Data Active Medications Ampicillin Sodium/Sulbactam (Sodium 3 gm/ Sodium Chloride) 100 mls @ 200 mls/hr IV Q6H [facility] Last Admin: 10/17/21 07:42 Dose: 200 mls/hr Documented by: NATALIE Ondansetron HCl (Ondansetron Hcl 4 Mg/2 Ml Vial) 4 mg IVPUSH Q6H PRN PRN Reason: Nausea Last Admin: 10/12/21 15:17 Dose: 4 mg Documented by: JORGE Labs CBC & Chem 7: 10/16/21 05:21 10/16/21 05:21 Assessment and Plan (1) Esophageal perforation: Status: Acute (2) Pneumomediastinum: Status: Acute (3) Leukopenia: Status: Acute Assessment and Plan: patient was admitted for loss of consciousness due to hypotension due to hypovolemia from poor p.o. intake.? Workup included CT? which revealed pneumomediastinum? and follow-up barium study was consistent with esophageal perforation. She appears to be tolerating mechanical soft diet.?Plan was to discharge pt back to shelter but they cannot provide services for her therefore she will have to be evaluated and admitted to a different rehab/NH. Pt was also swtiched to PO augmentin with plan x2 wks on 10/14 but pt has refused to take anything PO even with the help of her sister. she is minimally cooperative and will not take PO regardless of the amount of encouragement. Will switch her back to IV antibiotics Unasyn. Case management working on placement for pt will most baljit need midline prior to discharge #esophageal perforation/ pneumomediastinum conservative management restarted mechanical soft cleared for discharge by thoracic monitor intake , refusing oral intake of abiotics, switched to IV as above fo llow up thoracic outpatient monitor cbc while on abx cxr repeated -?No appreciable pneumomediastinum remains. No pneumothorax. Normal heart #leukopenia - stable - likely related to abx, -monitor cbc # tonic clonic LOC - resolved - unlikely seizure - most likely hypotensive, syncope from hypovolemia ?? seen by psych, patient found to have no decision-making capacity, therefore invoked healthcare proxy mother and sister are both healthcare proxys [phone]? and her sister Ruth # [phone]. sister going back home- she is not local but mother can be the next point of contact Quality Stroke Does the patient have a stroke diagnosis?: No VTE Prior VTE?: No VTE Risk Level:: Medical - moderate - high VTE Device Contraindication: Treatment Not Indicated VTE Drug Contraindication: N/A - Med Ordered
[2021-10-18] VITALS (7 sets, daily range): BP systolic 97–120; BP diastolic 48–66; PULSE 58–83; RESP 17–20; TEMP 36.4–36.9; O2SAT 95–99
[2021-10-18] MEDS: Ampicillin Sodium/Sulbactam Na 3 GM in 0.9 % Sodium Chloride 100 ML IV ×4 (02:34→19:15)
[2021-10-18 10:30] LABS: Basophils Absolute Auto 0.1 X10*3/uL (0.0-0.2); Basophils Percent Auto 6.5 % (0-2); Eosinophils Absolute Auto 0.1 X10*3/uL (0.0-0.4); Eosinophils Percent Auto 4.7 % (0-4); Hematocrit 34.4 % (37.0-47.0); Hemoglobin 11.8 g/dl (12.0-16.0); Imm Gran Abs Auto 0.02 X10*3/uL (0.00-0.03); Imm Gran Pct Auto 1.9 % (0.0-0.4); Lymphocytes Absolute Auto 0.4 X10*3/uL (1.2-4.9); Lymphocytes Percent Auto 34.6 % (20-40); MANUAL DIFF FLAG SCAN; Mean Corpuscular HGB Conc 34.3 g/dl (31.0-35.0); Mean Corpuscular Hemoglobin 33.2 pg (27.0-33.0); Mean Corpuscular Volume 96.9 fL (80.0-98.0); Mean Platelet Volume 9.7 fL (9.4-12.3); Monocytes Absolute Auto 0.2 X10*3/uL (0.1-1.2); Monocytes Percent Auto 16.8 % (2-11); Neutrophils Absolute Auto 0.4 x10*3/uL (2.0-8.3); Neutrophils Percent Auto 35.5 % (45-73); Platelet Count 210 X10*3/uL (160-400); Red Blood Count 3.55 X10*6/uL (4.20-5.50); Red Cell Distribution Width 14.6 % (11.0-16.0); SCAN SMEAR FLAG 1
--- NOTE | 2021-10-18 10:31 | HO.PM.IMPN ---
Subjective Subjective Date of Service: 10/18/21 Interval History: pt seen and examined at bedside. she initially was refusing blood draws for past two days but is now agreeable. she denies any chest pain, no sob, no abd pain, eating and drinking well. no acute complaints. Review of Systems Review of Systems: Yes all other systems are reviewed and are negative Physical Exam Vital Signs: Vital Signs: Last Vital Signs Temp 97.8 F 10/18/21 07:38 Pulse 83 10/18/21 08:00 Resp 20 10/18/21 07:38 BP 120/66 10/18/21 08:00 Pulse Ox 98 10/18/21 07:38 BMI result Body Mass Index 21.5 Const: General: cooperative and no acute distress Cardio: Rate: regular rate Rhythm: regular rhythm GI: Palpation (GI): Soft to palpation Auscultation: normal bowel sounds Extrem: General: Yes normal to inspection and Yes no pedal edema Objective Data Active Medications Ampicillin Sodium/Sulbactam (Sodium 3 gm/ Sodium Chloride) 100 mls @ 200 mls/hr IV Q6H DAVID Last Infusion: 10/18/21 09:42 Dose: 0 mls/hr Documented by: JOJO Ondansetron HCl (Ondansetron Hcl 4 Mg/2 Ml Vial) 4 mg IVPUSH Q6H PRN PRN Reason: Nausea Last Admin: 10/12/21 15:17 Dose: 4 mg Documented by: JORGE Labs CBC & Chem 7: 10/16/21 05:21 10/16/21 05:21 Assessment and Plan (1) Leukopenia: Status: Acute (2) Esophageal perforation: Status: Acute (3) Pneumomediastinum: Status: Acute Assessment and Plan: patient was admitted for loss of consciousness thought to be 2/2 hypotension due to hypovolemia from poor p.o. intake.? Workup included CT? which revealed pneumomediastinum? and follow-up barium study was consistent with esophageal perforation. She appears to be tolerating mechanical soft diet.?Plan was to discharge pt back to senior living but they cannot provide services for her therefore she will have to be evaluated and admitted to a different rehab/NH. Pt was also swtiched to PO augmentin with plan x2 wks on 10/14 but pt has refused to take anything PO even with the help of her sister who is her HCP. she is minimally cooperative and will not take PO regardless of the amount of encouragement. Will switch her back to IV antibiotics Unasyn. Case management working on placement for pt #esophageal perforation/ pneumomediastinum conservative management restarted mechanical soft cleared for discharge by thoracic monitor intake , refusing oral intake of antibiotics, switched to IV as above follow up thoracic outpatient monitor cbc while on abx cxr repeated -?No appreciable pneumomediastinum remains. No pneumothorax. Normal heart - midline requested #leukopenia - stable - likely related to abx, - been refusing blood draws but was convinceable today and will order her cbc again # tonic clonic LOC - resolved - unlikely seizure - most likely hypotensive, syncope from hypovolemia ?? seen by psych, patient found to have no decision-making capacity, therefore invoked healthcare proxy mother and sister are both healthcare proxys [phone]? and her sister Ruth # [phone]. sister going back home- she is not local but mother can be the next point of contact Quality Stroke Does the patient have a stroke diagnosis?: No VTE Prior VTE?: No VTE Risk Level:: Medical - moderate - high VTE Device Contraindication: Treatment Not Indicated VTE Drug Contraindication: N/A - Med Ordered
[2021-10-18 10:32] LABS: White Blood Count 1.1 X10*3/uL (4.8-10.8)
[2021-10-18 10:52] LABS: Anion Gap 11 (12-20); Blood Urea Nitrogen 3 mg/dL (9-16); Calcium 8.1 mg/dL (8.4-10.2); Carbon Dioxide 28 mmol/L (22-29); Chloride 105 mmol/L (96-108); Creatinine Clr Calc Pharmacy 85.3; Estimated Glomerular Filt Rate > 60; Glucose Random 76 mg/dL (60-115); Potassium 3.3 mmol/L (3.3-5.1); Sodium 141 mmol/L (135-145)
[2021-10-18 10:55] LABS: SLIDE REVIEW VERIFIED
[2021-10-19] MEDS: Ampicillin Sodium/Sulbactam Na 3 GM in 0.9 % Sodium Chloride 100 ML IV ×2 (01:44→06:52)
[2021-10-19 04:00] VITALS: BP 105/55; PULSE 76; RESP 18; TEMP 37.1; O2SAT 97
[2021-10-19 08:00] VITALS: BP 117/59; BP 123/75; PULSE 74; PULSE 81; RESP 20; TEMP 36.8; O2SAT 97
[2021-10-19 12:00] VITALS: BP 105/57; PULSE 93; RESP 20; TEMP 36.4; O2SAT 97
[2021-10-19] MEDS: Ertapenem Sodium 1 GM in 0.9 % Sodium Chloride 50 ML IV (12:02)
--- NOTE | 2021-10-19 13:33 | MHC.CLN ---
F/U DIET=REGULAR, NDD2. NO SUPPLEMENTS. APPEARS TO BE TOLERATING DIET. EATING WELL WITH MOST RECENT MEALS 50-100%. SKIN: NO OPEN AREAS. CONTINUE TO FOLLOW FOR DIET ADVANCEMENT, INTAKE, AND DIET TOLERANCE.
--- NOTE | 2021-10-19 13:55 | HO.PM.IMPN ---
Subjective Subjective Date of Service: 10/19/21 Interval History: Feels good, offers no complaints, answer good to all questions Review of Systems Review of Systems: Yes all other systems are reviewed and are negative Physical Exam Vital Signs: Vital Signs: Last Vital Signs Temp 97.6 F 10/19/21 12:00 Pulse 93 10/19/21 12:00 Resp 20 10/19/21 12:00 BP 105/57 L 10/19/21 12:00 Pulse Ox 97 10/19/21 12:00 BMI result Body Mass Index 21.5 Const: Other: Gen:? Awake alert, no acute distress,? Neck is supple Moist mucous membranes Lungs: clear to auscultation bilaterally Heart: regular rate and rhythm, no murmurs Abd: soft, non-tender, non-distended Ext: no edema or cyanosis Skin: warm/well-perfused Neuro:? Awake, alert, in no distress Psych: impaired insight Objective Data Active Medications Ertapenem 1 gm/ Sodium (Chloride) 50 mls @ 100 mls/hr IV DAILY DAVID Last Infusion: 10/19/21 12:39 Dose: 0 mls/hr Documented by: RICHI Ondansetron HCl (Ondansetron Hcl 4 Mg/2 Ml Vial) 4 mg IVPUSH Q6H PRN PRN Reason: Nausea Last Admin: 10/12/21 15:17 Dose: 4 mg Documented by: JORGE Labs CBC & Chem 7: 10/18/21 09:54 10/18/21 09:54 Assessment and Plan (1) Leukopenia: Status: Acute (2) Esophageal perforation: Status: Acute (3) Pneumomediastinum: Status: Acute Assessment and Plan: #esophageal perforation/ pneumomediastinum conservative management restarted mechanical soft cleared for discharge by thoracic Status post IV Vanco, Zosyn and Diflucan, Zosyn was discontinued due to leukopenis subsequently antibiotic, was swtiched to PO augmentin with plan x2 wks on 10/14 but pt has refused to take anything PO even with the help of her sister who is her HCP. therefore placed back on iv Unasyn. Patient noted to have significant drop in WBC to 1.1 with ANC 0.4 likely due to IV Unasyn Will DC IV Unasyn and place patient on ertapenem case discussed with ID Will monitor CBC Repeat chest x-ray showed no appreciable pneumomediastinum, no pneumothorax normal heart #Leukopenia WBC drop down to 1.1 likely due to antibiotic will switch antibiotic as above follow CP # tonic clonic LOC - resolved - unlikely seizure - most likely hypotensive, syncope from hypovolemia seen by psych, patient found to have no decision-making capacity, therefore invoked healthcare proxy mother and sister are both healthcare proxys [phone]? and her sister Ruth # [phone]. sister going back home- she is not local but mother can be the next point of contact patient was admitted for loss of consciousness thought to be 2/2 hypotension due to hypovolemia from poor p.o. intake.? Workup included CT? which revealed pneumomediastinum? and follow-up barium study was consistent with esophageal perforation. She appears to be tolerating mechanical soft diet.?Plan was to discharge pt back to assisted but they cannot provide services for her therefore she will have to be evaluated and admitted to a different rehab/NH. Case management working on placement for pt Quality Stroke Does the patient have a stroke diagnosis?: No VTE Prior VTE?: No VTE Risk Level:: Medical - moderate - high VTE Device Contraindication: Treatment Not Indicated VTE Drug Contraindication: N/A - Med Ordered
--- NOTE | 2021-10-19 14:48 | P.CNID_ITS ---
History of Present Illness Data of Consult Service Date: 10/19/21 Requesting physician: Marlyn Sanchez Primary Care Provider: Unknown Physician HPI Reason for consult: antibiotic choice She presents with weakness to ER and reluctance to swallow. She was found to have esophageal perforation She was given Unasyn and WBC down to .4 She refuses to take po medication She was seen by thoracic surgery and needs two more weeks of antibiotics and refuses po Review of Systems Verdana 4l Review of Systems: Yes Unobtainable due to mental status Verdana 4d PMFSH Past Medical History Medical History Down's syndrome Mood disorder Psychotic disorder Functional capacity: independent ambulation Social History Social History Household Members: Other Household Members Other:: assisted Housing: Other Housing Other:: assisted Do you presently have visiting nurse or other home services: Yes (assisted) Alcohol intake: never Patient Tobacco Use Status: Never used Tobacco service: No Current occupational status: disabled Meds Allergies Allergy/AdvReac Type Severity Reaction Status Date / Time Seasonal Allergies Allergy Unknown Verified 09/28/21 08:45 Active Medications: Current Medications Ertapenem 1 gm/ Sodium (Chloride) 50 mls @ 100 mls/hr IV DAILY DAVID Last Infusion: 10/19/21 12:39 Dose: Infused Documented by: Ondansetron HCl (Ondansetron Hcl 4 Mg/2 Ml Vial) 4 mg IVPUSH Q6H PRN PRN Reason: Nausea Last Admin: 10/12/21 15:17 Dose: 4 mg Documented by: Home Medications Medication Instructions Recorded Confirmed Last Taken Type acetaminophen 325 650 mg PO Q4H 09/28/21 09/28/21 Unknown History mg tablet PRN Physical Exam Verdana 4l Vital Signs: Verdana 4d Verdana 4d Vital Signs: Verdana 4d Verdana 4Bd Last Vital Signs Verdana 4d Exercise Specialist New 4d Exercise Specialist New 4d Temp 97.6 F 10/19/21 12:00 Exercise Specialist New 4d Pulse 93 10/19/21 12:00 Exercise Specialist New 4d Resp 20 10/19/21 12:00 BP 105/57 L 10/19/21 12:00 Pulse Ox 97 10/19/21 12:00 BMI result Body Mass Index 21.5 Const: General: cooperative Eyes: General: appearance normal, both eyes and all related structures Pupils: Equal, round and reactive pupils present Resp: Effort & Inspection: normal respiratory effort Cardio: Rate: regular rate Rhythm: regular rhythm GI: Palpation (GI): Soft to palpation and nontender Neuro: Cranial nerves: Yes Equal, round and reactive pupils present Extrem: General: Yes normal to inspection Results Labs CBC & Chem 7: 10/22/21 10:49 10/22/21 10:49 Microbiology Microbiology Results: Microbiology 09/28/21 10:50 Blood - Venous Blood Culture - Final No growth after 5 days. 09/28/21 11:15 Blood - Venous Blood Culture - Final Corynebacterium species Assessment and Plan (1) Leukopenia: Status: Acute (2) Esophageal perforation: Status: Acute She has leukopenia likely due to Unasyn She has had concern over WBC lowering due to Clindamycin as well (3) Pneumomediastinum: Status: Acute Plan 14 days IV Ertapenem and check labs including CBC weekly
[2021-10-19 16:00] VITALS: BP 110/55; PULSE 75; RESP 18; TEMP 37.1; O2SAT 96
[2021-10-19 19:22] VITALS: BP 105/58; PULSE 71; RESP 18; TEMP 36.6; O2SAT 97
[2021-10-19 23:54] VITALS: BP 88/46; PULSE 67; RESP 17; TEMP 36.3; O2SAT 96
[2021-10-20] VITALS (10 sets, daily range): BP systolic 88–133; BP diastolic 46–64; PULSE 61–89; RESP 17–18; TEMP 36.3–36.8; O2SAT 96–99
[2021-10-20] MEDS: Lactated Ringers 1,000 ML 999 ML IV (00:25)
--- NOTE | 2021-10-20 04:47 | PC.NURSE ---
Pt noted with systolic BP on the 80s even manually, pt is awake , dry oral mucosa, very concentrated urine, poor po intake during the day as reported, encouraged to drink juice but only took half of cup, Dr. Amaro was made aware, LR 1L bolus ordered, pt tolerated, BP rechecked =99/51.
--- NOTE | 2021-10-20 12:55 | HO.PM.IMPN ---
Subjective Subjective Date of Service: 10/20/21 Interval History: Admits that she is feeling good, does not communicate much, refused blood draws Review of Systems Review of Systems: Yes all other systems are reviewed and are negative Physical Exam Vital Signs: Vital Signs: Last Vital Signs Temp 98.2 F 10/20/21 11:47 Pulse 76 10/20/21 11:47 Resp 17 10/20/21 11:47 BP 98/58 L 10/20/21 11:47 Pulse Ox 98 10/20/21 11:47 BMI result Body Mass Index 21.5 Const: Other: Other: Gen:? Awake alert, no acute distress,? Neck is supple Moist mucous membranes Lungs: clear to auscultation bilaterally Heart: regular rate and rhythm, no murmurs Abd: soft, non-tender, non-distended Ext: no edema or cyanosis Skin: warm/well-perfused Neuro:? Awake, alert, in no distress Psych: impaired insight Objective Data Active Medications Ondansetron HCl (Ondansetron Hcl 4 Mg/2 Ml Vial) 4 mg IVPUSH Q6H PRN PRN Reason: Nausea Last Admin: 10/12/21 15:17 Dose: 4 mg Documented by: JORGE Labs CBC & Chem 7: 10/18/21 09:54 10/18/21 09:54 Assessment and Plan (1) Leukopenia: Status: Acute (2) Esophageal perforation: Status: Acute (3) Pneumomediastinum: Status: Acute Assessment and Plan: #esophageal perforation/ pneumomediastinum Was managed conservatively restarted mechanical soft cleared for discharge by thoracic Status post IV Vanco, Zosyn and Diflucan, has received 3 weeks of antibiotic, missed few days since refused meds Zosyn was discontinued due to leukopenis subsequently antibiotic, was swtiched to PO augmentin But patient refused to take by mouth antibiotic, therefore antibiotic was switched to iv Unasyn. Patient noted to have significant drop in WBC to 1.1 with ANC 0.4 she refuse blood draws, likely leukopenia due to Unasyn, received 1 dose of IV ertapenem October [address] Dahl, she recommended no hematological workup and felt agranulocytosis is related to antibiotic Call thoracic surgery today and discussed the total duration of antibiotic, they wanted total 3 weeks of antibiotics Repeat chest x-ray show no appreciable pneumomediastinum, no pneumothorax normal heart Since patient on antibiotic from September 28 through October 19, skip few days by refusing medication therefore will discontinue further antibiotic treatment Patient afebrile tolerating diet, no respiratory distress Recommend outpatient follow-up with thoracic surgery on October 30, continue current diet #Leukopenia WBC drop down to 1.1 likely due to antibiotic , patient refusing lab draws # tonic clonic LOC - resolved - unlikely seizure - most likely hypotensive, syncope from hypovolemia seen by psych, patient found to have no decision-making capacity, therefore invoked healthcare proxy mother and sister are both healthcare proxys [phone]? and her sister Ruth # [phone]. sister going back home- she is not local but mother can be the next point of contact Disposition?Plan was to discharge [facility] back to [facility] but they cannot provide services for her therefore she will have to be evaluated and admitted to a different rehab/NH. Since patient not on any antibiotic will discuss with social service technician regarding sending patient back to [facility] Quality Stroke Does the patient have a stroke diagnosis?: No VTE Prior VTE?: No VTE Risk Level:: Medical - moderate - high VTE Device Contraindication: Treatment Not Indicated VTE Drug Contraindication: N/A - Med Ordered
--- NOTE | 2021-10-20 15:31 | MHC.CM.PN ---
PATIENT NO LONGER NEEDS IV ABX. PLAN IS FOR RETURN TO [facility] ONCE PATIENT CAN AMBULATE INDEPENDENTLY. ALTERNATE PLAN IS DC TO REHAB IF SHE REQUIRES THIS STILL. CASE MANAGEMENT TO CONTACT DDS WITH PLAN IT UNFOLDS. PATIENT AGREES TO PARTICIPATE WITH P.T. TOMORROW MORNING
[2021-10-20 16:15] LABS: Basophils Absolute Auto 0.1 X10*3/uL (0.0-0.2); Basophils Percent Auto 3.8 % (0-2); Eosinophils Absolute Auto 0.2 X10*3/uL (0.0-0.4); Eosinophils Percent Auto 9.3 % (0-4); Hemoglobin 11.2 g/dl (12.0-16.0); Imm Gran Abs Auto 0.01 X10*3/uL (0.00-0.03); Imm Gran Pct Auto 0.5 % (0.0-0.4); Lymphocytes Absolute Auto 0.9 X10*3/uL (1.2-4.9); Lymphocytes Percent Auto 48.4 % (20-40); MANUAL DIFF FLAG SCAN; Mean Corpuscular HGB Conc 33.9 g/dl (31.0-35.0); Mean Corpuscular Hemoglobin 32.4 pg (27.0-33.0); Mean Corpuscular Volume 95.4 fL (80.0-98.0); Mean Platelet Volume 9.5 fL (9.4-12.3); Monocytes Absolute Auto 0.2 X10*3/uL (0.1-1.2); Monocytes Percent Auto 13.2 % (2-11); Neutrophils Absolute Auto 0.5 x10*3/uL (2.0-8.3); Neutrophils Percent Auto 24.8 % (45-73); Platelet Count 220 X10*3/uL (160-400); Red Blood Count 3.46 X10*6/uL (4.20-5.50); Red Cell Distribution Width 14.6 % (11.0-16.0); SCAN SMEAR FLAG 1
[2021-10-20 16:51] LABS: White Blood Count 1.8 X10*3/uL (4.8-10.8)
[2021-10-20 16:52] LABS: SLIDE REVIEW VERIFIED
[2021-10-21] VITALS (10 sets, daily range): BP systolic 74–116; BP diastolic 35–54; PULSE 70–106; RESP 17–18; TEMP 36.6–37.2; O2SAT 96–98
--- NOTE | 2021-10-21 11:15 | P.PNIM_ITS ---
Subjective Subjective Date of Service: 10/21/21 Interval History: patient answering good to all questions, noted to have orthostatic hypotension this a.m. remains afebrile no other acute events overnight. Review of Systems Review of Systems: Yes all other systems are reviewed and are negative Physical Exam Verdana 4l Vital Signs: Verdana 4d Verdana 4d Vital Signs: Verdana 4d Verdana 4Bd Last Vital Signs Verdana 4d [place] Cleaner New 4d [place] Cleaner New 4d Temp 98.1 F 10/21/21 07:47 [place] Cleaner New 4d Pulse 106 H 10/21/21 09:41 [place] Cleaner New 4d Resp 18 10/21/21 07:47 BP 74/35 L 10/21/21 09:41 Pulse Ox 98 10/21/21 07:47 BMI result Body Mass Index 21.5 Const: Other: Gen:? Awake alert, no acute distress,? Neck is supple Moist mucous membranes Lungs: clear to auscultation bilaterally Heart: regular rate and rhythm, no murmurs Abd: soft, non-tender, non-distended Ext: no edema or cyanosis Skin: warm/well-perfused Neuro:? Awake, alert, in no distress Psych: impaired insight Objective Data Active Medications Potassium Chloride/Sodium Chloride () 20 meq in 1,000 mls @ 125 mls/hr IVCONT .Q8H DAVID Ondansetron HCl (Ondansetron Hcl 4 Mg/2 Ml Vial) 4 mg IVPUSH Q6H PRN PRN Reason: Nausea Last Admin: 10/12/21 15:17 Dose: 4 mg Documented by: JORGE Labs CBC & Chem 7: 10/20/21 16:00 10/18/21 09:54 Labs: Laboratory Results - last 24 hr 10/20/21 16:00 MCV 95.4 MCH 32.4 MCHC 33.9 RDW 14.6 Plt Count 220 MPV 9.5 Immature Gran % (Auto) 0.5 H Neut % (Auto) 24.8 L Lymph % (Auto) 48.4 H [place] % (Auto) 13.2 H Eos % (Auto) 9.3 H Baso % (Auto) 3.8 H Lymph # (Auto) 0.9 L [place] # (Auto) 0.2 Eos # (Auto) 0.2 Baso # (Auto) 0.1 Abs Immat Gran (auto) 0.01 Absolute Neuts (auto) 0.5 L Absolute Nucleated RBC 0.000 Nucleated RBC % (auto) 0.0 Smear Tech's Comments VERIFIED Assessment and Plan (1) Leukopenia: Status: Acute (2) Esophageal perforation: Status: Acute (3) Pneumomediastinum: Status: Acute Plan #esophageal perforation/ pneumomediastinum Was managed conservatively by thoracic surgery Status post IV Vanco, Zosyn and Diflucan, has received 3 weeks of antibiotic, missed few days in between since refused meds, Zosyn was discontinued due to leukopenis subsequently antibiotic, was swtiched to PO augmentin ,but patient refused to take by mouth antibiotic, therefore antibiotic was switched to iv Unasyn. Patient noted to have significant drop in WBC to 1.1 with ANC 0.4 , therefore Unasyn discontinued and patient given 1 dose of ertapenem October 19 after discussing with ID Patient evaluated by Dr. Dahl, she recommended no hematological workup and felt agranulocytosis is related to antibiotic thoracic surgery recommend total 3 weeks of antibiotics Repeat chest x-ray show no appreciable pneumomediastinum, no pneumothorax normal heart thoracic surgery cleared her for discharge, will have outpatient follow-up with them on October 30, they recommend mechanical soft diet Patient afebrile tolerating diet, no respiratory distress # orthostatic hypotension likely due to decreased by mouth intake, not on any medications will give IV fluid follow BP closely encourage by mouth fluid #Leukopenia WBC drop down to 1.1 likely due to antibiotic , repeat labs showed WBC 1.8, ANC 0.5, follow CBC closely # tonic clonic LOC - resolved - unlikely seizure - most likely hypotensive, syncope from hypovolemia seen by psych, patient found to have no decision-making capacity, therefore invoked healthcare proxy mother and sister are both healthcare proxys [phone]? and her sister Ruth # [phone]. sister going back home- she is not local but mother can be the next point of contact Disposition?Plan was to discharge pt. back to [facility] but they cannot provide services, will encourage out of bed to chair and ambulation, will request assisted Personal to visit patient and encourage ambulation Quality Stroke Does the patient have a stroke diagnosis?: No VTE Prior VTE?: No VTE Risk Level:: Medical - moderate - high VTE Device Contraindication: Treatment Not Indicated VTE Drug Contraindication: N/A - Med Ordered
--- NOTE | 2021-10-21 11:21 | MHC.CLN ---
F/U DIET=REGULAR, NDD2. NO SUPPLEMENTS. APPEARS TO BE TOLERATING DIET. PER NURSING NOTE, POOR INTAKE 10/20. SKIN: NO OPEN AREAS. CONTINUE TO FOLLOW FOR DIET ADVANCEMENT, INTAKE, AND DIET TOLERANCE.
[2021-10-21 11:41] LABS: Basophils Absolute Auto 0.1 X10*3/uL (0.0-0.2); Basophils Percent Auto 3.6 % (0-2); Eosinophils Absolute Auto 0.2 X10*3/uL (0.0-0.4); Eosinophils Percent Auto 8.2 % (0-4); Hematocrit 35.2 % (37.0-47.0); Hemoglobin 12.1 g/dl (12.0-16.0); Imm Gran Abs Auto 0.01 X10*3/uL (0.00-0.03); Imm Gran Pct Auto 0.5 % (0.0-0.4); Lymphocytes Absolute Auto 1.1 X10*3/uL (1.2-4.9); Lymphocytes Percent Auto 55.7 % (20-40); MANUAL DIFF FLAG SCAN; Mean Corpuscular HGB Conc 34.4 g/dl (31.0-35.0); Mean Corpuscular Hemoglobin 32.8 pg (27.0-33.0); Mean Corpuscular Volume 95.4 fL (80.0-98.0); Mean Platelet Volume 9.9 fL (9.4-12.3); Monocytes Absolute Auto 0.2 X10*3/uL (0.1-1.2); Monocytes Percent Auto 11.9 % (2-11); Neutrophils Absolute Auto 0.4 x10*3/uL (2.0-8.3); Neutrophils Percent Auto 20.1 % (45-73); Platelet Count 234 X10*3/uL (160-400); Red Blood Count 3.69 X10*6/uL (4.20-5.50); Red Cell Distribution Width 14.4 % (11.0-16.0); SCAN SMEAR FLAG 1
[2021-10-21 11:42] LABS: White Blood Count 1.9 X10*3/uL (4.8-10.8)
[2021-10-21 11:56] LABS: Anion Gap 13 (12-20); Blood Urea Nitrogen 2 mg/dL (9-16); Calcium 8.2 mg/dL (8.4-10.2); Carbon Dioxide 25 mmol/L (22-29); Chloride 105 mmol/L (96-108); Creatinine Clr Calc Pharmacy 91.4; Estimated Glomerular Filt Rate > 60; Glucose Random 73 mg/dL (60-115); Potassium 3.3 mmol/L (3.3-5.1); Sodium 140 mmol/L (135-145)
[2021-10-21 11:59] LABS: SLIDE REVIEW VERIFIED
--- NOTE | 2021-10-21 12:12 | MHC.CM.PN ---
Addendum entered by Luh English RN 10/21/21 16:46: KAUFMAN WILL BE REMOVED IN AM W/VOIDING TRIAL Original Note: CM MET W/HOSPITALIST TO DISCUSS CASE, PT IS ORTHOSTATIC W/HYPOTENSION AND WILL RECEIVE IV FLUIDS, PT WILL ALSO HAVE KAUFMAN REMOVED AND VOIDING TRIAL, PT WILL NOT BE DISCHARGED ON ANY NEW MEDS, PLAN FOR D/C BACK TO NURSING HOME TOMORROW. PT WALKED W/THIS CM AND PT OUT OF ROOM, DOWN [place] TO WINDOW AND THEN BACK, PT ALSO WALKED IN ROOM THIS MORNING AND SAT AT TABLE BY WINDOW WHILE HER BEDDING WAS CHANGED. PT MADE PLANS TO WALK W/CM AGAIN AND WILL FACETIME HER SISTER ANGELICA AT [phone] TODAY AT 4PM. CM RECEIVED CALL FROM DDS RN BUSINESS SERVICES ADMINISTRATOR ALBIN GALLAGHER TO DISCUSS DCP AND ARRANGE TRANSPORTATION, ALBIN UPDATED ON PT CLINICAL STATUS AND ALBIN REPORTS SHE WILL CHECK W/ BUSINESS SERVICES ADMINISTRATOR TO DETERMINE WHO/WHEN THEY WOULD BE ABLE TO TRANSPORT PT HOME AND HAVE AN ANSWER AND FOLLOW-UP W/CM IN AM, ALBIN HAS CM CONTACT INFO.
[2021-10-22] VITALS (7 sets, daily range): BP systolic 98–120; BP diastolic 43–77; PULSE 54–86; RESP 15–18; TEMP 36.4–36.7; O2SAT 98–100
[2021-10-22 11:09] LABS: Basophils Absolute Auto 0.1 X10*3/uL (0.0-0.2); Basophils Percent Auto 3.6 % (0-2); Eosinophils Absolute Auto 0.2 X10*3/uL (0.0-0.4); Eosinophils Percent Auto 7.7 % (0-4); Hematocrit 34.6 % (37.0-47.0); Hemoglobin 11.8 g/dl (12.0-16.0); Imm Gran Abs Auto 0.01 X10*3/uL (0.00-0.03); Imm Gran Pct Auto 0.5 % (0.0-0.4); Lymphocytes Absolute Auto 1.1 X10*3/uL (1.2-4.9); Lymphocytes Percent Auto 56.1 % (20-40); MANUAL DIFF FLAG SCAN; Mean Corpuscular HGB Conc 34.1 g/dl (31.0-35.0); Mean Corpuscular Hemoglobin 32.7 pg (27.0-33.0); Mean Corpuscular Volume 95.8 fL (80.0-98.0); Monocytes Absolute Auto 0.2 X10*3/uL (0.1-1.2); Monocytes Percent Auto 9.7 % (2-11); Neutrophils Absolute Auto 0.4 x10*3/uL (2.0-8.3); Neutrophils Percent Auto 22.4 % (45-73); Platelet Count 230 X10*3/uL (160-400); Red Blood Count 3.61 X10*6/uL (4.20-5.50); Red Cell Distribution Width 14.5 % (11.0-16.0); SCAN SMEAR FLAG 1
[2021-10-22 11:27] LABS: Anion Gap 12 (12-20); Blood Urea Nitrogen 2 mg/dL (9-16); Calcium 7.7 mg/dL (8.4-10.2); Carbon Dioxide 24 mmol/L (22-29); Chloride 105 mmol/L (96-108); Creatinine Clr Calc Pharmacy 100.1; Estimated Glomerular Filt Rate > 60; Glucose Random 66 mg/dL (60-115); Potassium 3.5 mmol/L (3.3-5.1); Sodium 137 mmol/L (135-145)
--- NOTE | 2021-10-22 11:41 | MHC.CM.PN ---
Addendum entered by Zully Metcalf 10/23/21 16:30: TREATMENT PLAN FAXED BACK TO ALBIN GALLAGHER SHE RETURNED CALL TO CONFIRM RECEIPT SHE STATES THAT A STAFF MEMBER IS ON THE WAY TO TRANSPORT PATIENT HOME. Original Note: CALL TO DDS RN, ALBIN GALLAGHER AT [phone] ALBIN IS GOING TO FAX A TREATMENT PLAN TO [facility] [place] THAT WILL NEED TO BE REVIEWED AND SIGNED BY AN MD. ONCE FAX IS RECEIVED BACK, ALBIN WILL ARRANGE FOR DDS TO TRANSPORT PATIENT BACK TO HER [facility] SETTING. ALBIN IS AWARE THAT THE KAUFMAN IS REMOVED, PATIENT IS AMBULATING, AND WE ARE WAITING FOR PATIENT TO VOID.
[2021-10-22 11:42] LABS: SLIDE REVIEW VERIFIED
--- NOTE | 2021-10-22 15:00 | MHC.CM.PN ---
OF THIS NOTE, PATIENT HAS NOT VOIDED. SHE HAS BEEN UP TO THE TOILET TWICE TODAY SINCE KAUFMAN REMOVAL IN ATTEMPTS TO DO SO.
--- NOTE | 2021-10-22 15:52 | P.PNIM_ITS ---
Subjective Subjective Date of Service: 10/22/21 Interval History: answering good to all questions, denies acute complaints, refusing to eat and drink, blood pressure improved with IV fluid, no events overnight. Review of Systems Review of Systems: Yes all other systems are reviewed and are negative Physical Exam Verdana 4l Vital Signs: Verdana 4d Verdana 4d Vital Signs: Verdana 4d Verdana 4Bd Last Vital Signs Verdana 4d Crm Business Analyst New 4d Crm Business Analyst New 4d Temp 98.1 F 10/22/21 11:56 Crm Business Analyst New 4d Pulse 82 10/22/21 11:56 Crm Business Analyst New 4d Resp 17 10/22/21 11:56 BP 111/57 L 10/22/21 11:56 Pulse Ox 100 10/22/21 11:56 BMI result Body Mass Index 21.5 Const: Other: Gen:? Awake alert, no acute distress,? Neck supple Moist mucous membranes moist Lungs: clear to auscultation bilaterally Heart: regular rate and rhythm, no murmurs Abd: soft, non-tender, non-distended Ext: no edema or cyanosis Skin: warm/well-perfused Neuro:? Awake, alert, in no distress Psych: impaired insight Objective Data Active Medications Omeprazole (Omeprazole 20 Mg/10 Ml Susp.Recon) 20 mg PO DAILY@0630 [facility] Last Admin: 10/22/21 10:50 Dose: Not Given Documented by: DOROTHY Non-Admin Reason: Patient Refused Ondansetron HCl (Ondansetron Hcl 4 Mg/2 Ml Vial) 4 mg IVPUSH Q6H PRN PRN Reason: Nausea Last Admin: 10/12/21 15:17 Dose: 4 mg Documented by: JORGE Labs CBC & Chem 7: 10/22/21 10:49 10/22/21 10:49 Labs: Laboratory Results - last 24 hr 10/22/21 10/22/21 10:49 10:49 MCV 95.8 MCH 32.7 MCHC 34.1 RDW 14.5 Plt Count 230 MPV 10.0 Immature Gran % (Auto) 0.5 H Neut % (Auto) 22.4 L Lymph % (Auto) 56.1 H Ector % (Auto) 9.7 Eos % (Auto) 7.7 H Baso % (Auto) 3.6 H Lymph # (Auto) 1.1 L Ector # (Auto) 0.2 Eos # (Auto) 0.2 Baso # (Auto) 0.1 Abs Immat Gran (auto) 0.01 Absolute Neuts (auto) 0.4 L Absolute Nucleated RBC 0.000 Nucleated RBC % (auto) 0.0 Smear Tech's Comments VERIFIED Anion Gap 12 Estim Creat Clear Calc 100.1 Estimated GFR > 60 Random Glucose 66 Calcium 7.7 L D Assessment and Plan (1) Leukopenia: Status: Acute (2) Esophageal perforation: Status: Acute (3) Pneumomediastinum: Status: Acute Plan #esophageal perforation/ pneumomediastinum Was managed conservatively by thoracic surgery Status post IV Vanco, Zosyn and Diflucan, has received 3 weeks of antibiotic, missed few days in between since refused meds, Zosyn was discontinued due to leukopenis subsequently antibiotic, was swtiched to PO augmentin ,but patient refused to take by mouth antibiotic, therefore antibiotic was switched to iv Unasyn. Patient noted to have significant drop in WBC to 1.1 with ANC 0.4 , therefore Unasyn discontinued and patient given 1 dose of ertapenem October 19 after discussing with ID Patient evaluated by Dr. Dahl, she recommended no hematological workup and felt agranulocytosis is related to antibiotic thoracic surgery recommend total 3 weeks of antibiotics Repeat chest x-ray show no appreciable pneumomediastinum, no pneumothorax normal heart thoracic surgery cleared her for discharge, will have outpatient follow-up with them on October 30, continue mechanical soft diet Patient afebrile refusing to eat, no respiratory distress, encourage out of bed to chair ambulation and encouraged to eat. #orthostatic hypotension resolved was likely due to decreased by mouth intake, encourage by mouth fluid, will give additional 500 mL of IV fluid due to decreased by mouth intake. # urinary retention, Bergman catheter removed this morning patient has not voided yet has not been eating or drinking will give IV fluid 500 mL, strongly encourage patient to drink fluids. #Leukopenia WBC drop down to 1.1 likely due to antibiotic , repeat labs showed WBC 2.0, ANC 0.5, patient with chronic leukopenia # tonic clonic LOC - resolved, unlikely seizure - most likely hypotensive syncope, from hypovolemia seen by psych, patient found to have no decision-making capacity, therefore invoked healthcare proxy mother and sister are both healthcare proxys [phone]? and her sister Ruth # [phone]. sister going back home- she is not local but mother can be the next point of contact Disposition?case resource manager working for safe discharge. Quality Stroke Does the patient have a stroke diagnosis?: No VTE Prior VTE?: No VTE Risk Level:: Medical - moderate - high VTE Device Contraindication: Treatment Not Indicated VTE Drug Contraindication: N/A - Med Ordered
--- NOTE | 2021-10-22 16:08 | PC.NURSE ---
Bergman removed at 1100. DTV at 1700. Encouraged patient to drink but patient resistant and refusing. Ambulated to to attempt a void but no void.
[2021-10-22] MEDS: Lactated Ringers 500 ML 100 ML IVCONT (17:52)
[2021-10-23] VITALS: BP 87/46; BP 91/47; PULSE 65; RESP 14; TEMP 36.8; O2SAT 99
[2021-10-23 01:13] VITALS: BP 91/47
[2021-10-23 03:37] VITALS: BP 99/54; PULSE 76; RESP 16; TEMP 36.4; O2SAT 98
[2021-10-23 07:43] VITALS: BP 109/53; PULSE 78; RESP 17; TEMP 36.9; O2SAT 98
[2021-10-23 11:53] VITALS: BP 114/56; PULSE 80; RESP 18; TEMP 37.3; O2SAT 97
--- NOTE | 2021-10-23 12:31 | P.DS_ITS ---
DS: Providers Provider Date of Service: 10/23/21 Date of admission: 09/27/21 20:59 Primary care physician: Unknown Physician Consults: 09/27/21 20:58 Consult to Neurology Routine Consulting Provider: [facility] Reason for consultation: tonic clonic movements 09/28/21 00:29 Consult to Gastroenterology Routine Consulting Provider: Emmanuel Scales Reason for consultation: pneumomediastinum, ?boerhoves - poor historian 09/28/21 01:16 Consult to Thoracic Surgery Routine Consulting Provider: Kaylee Jackson Reason for consultation: extensive pneumomediastinum, unclear etiology 09/28/21 10:12 Consult to Critical Care Stat Consulting Provider: Kendall Lang Reason for consultation: Undifferentiated hypotension 09/28/21 16:45 Consult to Psychiatry Routine Consulting Provider: Psych Covering Reason for consultation: Downs. Sister reports paranoia- feels that [facility] trying to hurt her 10/01/21 10:48 Consult to Psychiatry Routine Consulting Provider: Keren Yu Reason for consultation: competency Has provider been notified: No 10/12/21 12:17 Consult to Hematology / Oncology Routine Consulting Provider: [facility] Oncology/Hematology Reason for consultation: persistent leucopenia/ neutropenia -unclear etiology 10/18/21 14:07 Consult to Hematology / Oncology Routine Consulting Provider: Kerry Dahl Reason for consultation: leukopenia Has provider been notified: No 10/19/21 10:20 Consult to Infectious Diseases Routine Consulting Provider: Anay Pandya Reason for consultation: leukopenia/esophageal perf Has provider been notified: No 10/19/21 10:59 Consult to Infectious Diseases Routine Consulting Provider: Anay Pandya Reason for consultation: abd unfection Has provider been notified: Yes DS: Diagnosis Discharge Diagnosis (1) Leukopenia: Status: Acute (2) Esophageal perforation: Status: Acute (3) Pneumomediastinum: Status: Acute DS: Summary Hospital Course Hospital Course: patient was admitted for loss of consciousness due to hypotension due to hypovolemia from poor p.o. intake. Workup included CT which revealed pneumomediastinum and follow-up barium study was consistent with esophageal perforation. Patient was unable to give history to determine exact etiology. She was treated conservatively with empiric anti biotics and antifungals, NPO with TPN, PPI. After about 2 weeks patient was rechallenged with oral diet, she did not participate with repeat barium study. She appears to be tolerating mechanical soft diet. She will be [facility] to [facility] oral suspension Prilosec, Zofran as needed for nausea, she has finished course of antibiotic, she should follow-up with thoracic on October 30, she should be accompanied by someone who was been keeping track of her oral intake at the [facility]. Of note patient did have leukopenia while in hospital, was attributed to antibiotics, this should be monitored as outpatient recommend CBC in 1 week Time Spent with Patient Time attestation: Total time spent providing and/or coordinating discharge services: Discharge coordination time: Greater than 30 minutes Quality: Stroke Does the patient have a stroke diagnosis?: No Physical Exam Verdana 4l Vital Signs: Verdana 4d Verdana 4d Vital Signs: Verdana 4d Verdana 4Bd Last Vital Signs Verdana 4d Emergency Spill Response Technician New 4d Emergency Spill Response Technician New 4d Temp 99.1 F 10/23/21 11:53 Emergency Spill Response Technician New 4d Pulse 80 10/23/21 11:53 Emergency Spill Response Technician New 4d Resp 18 10/23/21 11:53 BP 114/56 L 10/23/21 11:53 Pulse Ox 97 10/23/21 11:53 BMI result Body Mass Index 21.5 Const: Other: Gen:? Awake alert, no acute distress,? Neck? supple Moist mucous membranes moist Lungs: clear to auscultation bilaterally Heart: regular rate and rhythm, no murmurs Abd: soft, non-tender, non-distended Ext: no edema or cyanosis Skin: warm/well-perfused Neuro:? Awake, alert, in no distress Psych: impaired insight Discharge Plan Discharge Patient Disposition: Xfer Other Discharge Diagnosis: esophogeal rupture Referrals: Kaylee Jackson MD [Physician] - 1 Week PhysicianEsthela [Primary Care Provider] - 1 Week Discharge Medications: New omeprazole magnesium 10 mg susp,delayed release for recon 20 mg PO DAILY Qty: 30 0RF ondansetron HCl 4 mg tablet 4 mg PO Q8H PRN (Reason: nausea and vomiting) 4 Days Qty: 30 0RF Continued acetaminophen 325 mg Tablet 650 mg PO Q4H PRN (Reason: pain or fever) 0RF Discontinued chlorhexidine gluconate [Peridex] 0.12 % Mouthwash 15 ml BUCCAL BID 0RF Discharge Orders: Discharge Order (Routine); Ordered 10/23/21 Ordered By: Marlyn Sanchez Diet: other Activity on Discharge: As tolerated Stand Alone Forms: Patient Portal Discharge page Other Ambulatory Orders: Complete Blood Count no Diff (Routine) Timeframe: 1 Week Facility: [facility] - Location: Laboratory Ordered By: Jean Reno Care Plan Goals: recovery Health Concerns: esophogeal rupture Plan of Treatment: mechanical soft diet, strict documentation of oral intake, liquids prilosec, follow up with thoracic surgery PATIENT NEEDS ENCOURAGEMENT TO EAT/ PUSH FLUIDS Assessment: DIET: - You will be on a soft mechanical diet until you are seen in the office.? DO NOT advance your diet unless told to do so by the surgeon. - Eat frequent small meals throughout the day.? Avoid large meals. - No straws or carbonated beverages. - You should avoid laying flat for 2-3 hours after eating. ACTIVITY: - You should be out of bed and walking at least 3x per day. - No lifting anything heavier than 10lb x 4 weeks (ie, gallon of milk). - Continue to use the incentive spirometer at least 10x per day to aide with keeping the lungs expanded. INCISION CARE: - Keep all incisions clean and dry.? - Ok to shower. - Gently wash incisions with soap and water.? No scrubbing the areas. - No tub baths, swimming, etc. for the next 2 weeks. MEDICATION: - Continue to take your anti-nausea medicine as directed.? It is very important to control any nausea to avoid retching/vomiting. - All medications should be crushed when taken. FOLLOWUP: - You have an appointment with Dr. Jackson at the [facility] office on 10/30/2021 @ 10:30 for a followup. ? [facility], 1st floor - Call the thoracic surgery office @ [phone] if you have any questions or concerns.?
--- NOTE | 2021-10-23 13:13 | MHC.CM.PN ---
Addendum entered by Zully Metcalf 10/23/21 14:17: CORRECTION: IMM 10/22/21 IN CHART, NOT 10/23/21 Original Note: PATIENT IS RETURNING TO HER LONGTERM SETTING TODAY. [facility] WILL PROVIDE TRANSPORT FOR APPROX. 1600 FROM [facility] [place]. RN AWARE OF PLAN. IMM 10/23 IN CHART ARRANGEMENTS MADE WITH ALBIN GALLAGEHR OF [facility] (RN)
[2021-10-23 13:14] LABS: COVID-19 Test Negative (Negative)
[2021-10-23 16:00] VITALS: BP 118/57; PULSE 76; RESP 18; TEMP 36.5; O2SAT 98
== END 2021-10-23 18:00 | disposition other institution (70) | DRG 199 ==
LOC: HO.ED 19:32 → HO.EDOVER 21:48 → HO.IMC 09-28 16:36 → HO.EDOVER 09-28 16:42 → HO.S3 10-06 15:45
PROVIDERS: Family Medicine; Internal Medicine; Nurse Practitioner Family; Physician Assistant; Radiology Diagnostic Radiology; Admitting Provider Internal Medicine; Emergency Provider Emergency Medicine; Visit Provider Hospitalist
DX: J98.2 Interstitial emphysema (principal); K22.3 Perforation of esophagus; E87.6 Hypokalemia; D72.819 Decreased white blood cell count, unspecified; Z23 Encounter for immunization; Q90.9 Down syndrome, unspecified; I95.9 Hypotension, unspecified; Z20.822 Contact with and (suspected) exposure to COVID-19; Z79.899 Other long term (current) drug therapy
CPT/HCPCS: 36415; 36573; 70450; 71045; 71250; 74176; 74220; 76937; 80048; 80053; 80076; 80202; 81001; 82040; 82533; 82565; 82947; 83605; 83735; 84100; 84145; 84439; 84443; 84478; 85007; 85025; 85027; 85610; 85730; 86140; 86850; 86900; 86901; 87040; 87205; 87633; 87635; 93005; 93306; 95816; 96361; 96365; 96366; 96375; 97116; 97162; 99285; 99291; C1751; C1758; J0295; J1335; J1450; J1650; J2060; J2185; J2405; J2543; J3370; J3475

== ENCOUNTER → 2021-10-30 10:43 | Outpatient (BNVA) | payer MEDICARE, SELFPAY | PROVIDERS: PCP Family Medicine; Visit Provider Surgery | DX: J98.2 Interstitial emphysema (principal); K22.3 Perforation of esophagus; Z79.899 Other long term (current) drug therapy | CPT/HCPCS: 99212 ==